=== PATIENT | female | born 1950 | race Caucasian/White ===

== ENCOUNTER 2019-03-14 12:03 | Day surgery (SDC) | payer MEDICARE ==
[~2019-03-14] VITALS: Ht 172.7 cm; Wt 77.1 kg
[~2019-03-14 12:03] MED LIST: ALPR1TAB6 PO; BACITRACIN 50,000 UNIT in IV NORMAL SALINE 500ML BAG 500 ML IRR ONE; BUPIVACAINE-EPI 0.5%-1:200000 MPF 30 ML VIAL. INJ ONE; CHLORHEXIDINE 0.12% 15 ML MOUTHWASH. SWSP PRN; CHOL10003 PO; ESCI10TA2 PO; HYDROmorphone 2 MG/ML VIAL IV PRN; IV RINGERS,LACTATED 1000ML 1,000 ML IV SCH; LIDOCAINE 1% PF 2 ML VIAL. ID PRN; MORPHINE SULFATE 2 MG/ML VIAL. IV PRN; MULT1TAB52 PO; OLME20TA21 PO; PROCHLORPERAZINE 10 MG/2 ML VIAL. IV PRN; ROSU20TA28 PO; TRAZ-86 PO; fentaNYL PF VIAL 100 MCG/2 ML VIAL IV PRN
[2019-03-14] MEDS ORDERED: fentaNYL PF VIAL 100 MCG/2 ML VIAL ONE (13:10)
[2019-03-14] MEDS ORDERED: LIDOCAINE 2% PF 5 ML VIAL. ONE (13:10)
[2019-03-14] MEDS ORDERED: DEXAMETHASONE SOD PHOS 4 MG/ML VIAL ONE ×2 (13:10→15:46)
[2019-03-14] MEDS ORDERED: SUCCINYLCHOLINE 200 MG/10 ML VIAL. ONE (13:10)
[2019-03-14] MEDS ORDERED: PROPOFOL 20 ML IV ONE (13:10)
[2019-03-14] MEDS ORDERED: FAMOTIDINE 20 MG/2 ML VIAL ONE (13:10)
[2019-03-14] MEDS ORDERED: ONDANSETRON PF 4 MG/2 ML VIAL. ONE (13:10)
[2019-03-14] MEDS ORDERED: MIDAZOLAM HCL/PF 5 MG/5 ML VIAL. ONE (13:56)
[2019-03-14] MEDS ORDERED: GELATIN SPONGE SIZE 4 SPONGE. TP ONE (14:27)
[2019-03-14] MEDS ORDERED: ROCURONIUM 50 MG/5 ML VIAL. ONE (14:28)
[2019-03-14] MEDS ORDERED: GELATIN SPONGE SIZE 4 SPONGE. ONE ×2 (14:50)
[2019-03-14] MEDS ORDERED: GELATIN SPONGE SIZE 12-7MM SPONGE. ONE (14:51)
[2019-03-14] MEDS ORDERED: DESFLURANE > 120 MINUTES IH ONE (15:54)
[2019-03-14] MEDS ORDERED: DEXAMETHASONE SOD PHOS 4 MG/ML VIAL SQ ONE (15:55)
[2019-03-14] MEDS: fentaNYL PF VIAL 100 MCG/2 ML VIAL IV PRN ×5 (16:16→16:50)
--- NOTE | 2019-03-14 16:30 | PDOC4 ---
OPERATIVE NOTE Date: Date: Mar 14, 2019 Pre-Op Diagnosis: [facility] OPERATIVE NOTE. Patient Name: Mayda Gustafson Unit Number: [id number] Date of : 11/19/1963 Patient Status: Admitted Inpatient Attending Doctor: Truong Leblanc MD OPERATIVE NOTE. OPERATIVE NOTE Date: Date: Mar 14, 2019 Pre-Op Diagnosis: COPD Severe HTN caries 22,23,24,25,26,27 Bilateral mandibular fawad Post-Op Diagnosis: SAME Procedure Performed: Procedure Performed: extraction of all remaining teeth 22,23,24,25,26,27 removal of Bilateral mandibular fawad Surgeon: radha Anesthesia Type: m Blood Loss: 20 Specimans Obtained: teeth disposed of in OR Findings: see dictation Complications: none Operative Note: see dictation DALLIN RASHEED DMD Mar 14, 2019 16:30
[2019-03-14 17:19] VITALS: BP 150/82
--- NOTE | 2019-03-14 22:15 | OP ---
DATE OF SURGERY: 03/14/2019 OPERATING SERVICE: water resources business segment leader. ATTENDING PHYSICIAN: Dallin Rasheed DMD PREOPERATIVE DIAGNOSES: Chronic obstructive pulmonary disease, severe; hypertension; caries, nonrestorable teeth numbers 22, 23, 24, 25, 26, 27; and bilateral mandibular fawad, lower right and lower left. POSTOPERATIVE DIAGNOSES: Chronic obstructive pulmonary disease, severe; hypertension; caries, nonrestorable teeth numbers 22, 23, 24, 25, 26, 27; and bilateral mandibular fawad, lower right and lower left. PROCEDURES PERFORMED: Extraction of aforementioned teeth numbers 22, 23, 24, 25, 26, 27 and removal of bilateral mandibular fawad, lower right and lower left. BRIEF HISTORY: The patient was referred to my clinic by Dr. Washington from the [facility] for removal of the aforementioned teeth in preprosthetic surgery. On evaluation, her oxygenation saturation was very low without supplemental oxygen and she was resting in the room. Due to the nature of the surgery that was required, sedation would be required in her severely medically compromised state. We elected to escalate those setting of her care to the OR. Brief history and physical was performed in our clinic and permit was obtained for surgery. ESTIMATED BLOOD LOSS: Approximately 20 mL. DRAINS PLACED: None. SPECIMEN SENT: None. COMPLICATIONS: None noted at the time of surgery. OPERATIVE DESCRIPTION: After the history and physical was updated in the preoperative holding area, the patient was transported by the Anesthesia Service to the operating suite, placed in the supine position. General anesthesia was induced. She was secured to the left face. A timeout was initiated. All perioperative staff was in agreement. A moistened throat pack was placed. A local anesthesia in the form of 20 mL of 0.5% 1:200,000 epinephrine was administered to the proposed surgical areas. Additional 10 mL were administered at the culmination of the procedure approximately an hour and a half later. The moistened bite block was placed. A sweetheart tongue retractor was utilized to retract the tongue. A #15 blade was utilized to create a full thickness mid crestal ridge incision on the lower right and lower left with distal hockey stick. Periosteal elevators, Fieldon elevators, and Seldin elevators were employed to reflect buccal and lingual full thickness mucoperiosteal flaps. The fawad were exposed. The soft tissue was retracted with sweetheart and Seldin retractors and rotary instrumentation was utilized to debride, smooth, and remove the bony prominences of the fawad under copious normal sterile saline irrigation. The sites of lower right and lower left were lavaged and suctioned and evaluated and found to be smooth and without significant undercut. Teeth numbers 22, 23, 24, 25, 26, and 27 were luxated, elevated, and extracted without complication. Alveoloplasty in the lower right and lower left quadrants was employed with rongeurs. The bony undercuts were removed and the areas were smoothed with bone file curettage and copious normal sterile saline. Each site was packed with Gelfoam and the wounds were closed with a running locked 3-0 chromic gut sutures without complication. A small 8 x 8 mm laceration was noted on the lower right floor of mouth. This was closed with three 3-0 chromic gut sutures. The oral cavity was lavaged and suctioned. The moistened throat pack was removed. An OG was passed and the stomach was decompressed. The patient was then returned to the care of Anesthesia, where she was awakened and extubated without complication and transported to the PACU in stable condition. DALLIN RASHEED DMD DR: Adrianna JOB#: [id number] / [id number] JASON
== END 2019-03-14 19:12 | disposition home or self-care (01) ==
LOC: SURG 12:03
PROVIDERS: ATTEND Dentist Oral and Maxillofacial Surgery
DX: K02.9 Dental caries, unspecified (principal); J44.9 Chronic obstructive pulmonary disease, unspecified; I10 Essential (primary) hypertension; G47.33 Obstructive sleep apnea (adult) (pediatric); F41.9 Anxiety disorder, unspecified; F32.9 Major depressive disorder, single episode, unspecified; F17.210 Nicotine dependence, cigarettes, uncomplicated; Z96.649 Presence of unspecified artificial hip joint; Z96.659 Presence of unspecified artificial knee joint; Z96.619 Presence of unspecified artificial shoulder joint
CPT/HCPCS: 41874; A7015; J0330; J0690; J0780; J1100; J2001; J2250; J2405; J2704; J3010; J3490; J7040; J7120

== ENCOUNTER 2019-09-02 11:57 | Inpatient (IN) | payer MEDICARE ==
[~2019-09-02] VITALS: Ht 172.7 cm; Wt 80.1 kg
[2019-09-02] VITALS (11 sets, daily range): BP systolic 115–140; BP diastolic 71–91
[~2019-09-02 11:57] MED LIST changes: -BACITRACIN 50,000 UNIT in IV NORMAL SALINE 500ML BAG 500 ML IRR ONE; -BUPIVACAINE-EPI 0.5%-1:200000 MPF 30 ML VIAL. INJ ONE; -CHLORHEXIDINE 0.12% 15 ML MOUTHWASH. SWSP PRN; -HYDROmorphone 2 MG/ML VIAL IV PRN; -IV RINGERS,LACTATED 1000ML 1,000 ML IV SCH; -LIDOCAINE 1% PF 2 ML VIAL. ID PRN; -MORPHINE SULFATE 2 MG/ML VIAL. IV PRN; -PROCHLORPERAZINE 10 MG/2 ML VIAL. IV PRN; +TRAZ-123 PO; -TRAZ-86 PO; -fentaNYL PF VIAL 100 MCG/2 ML VIAL IV PRN
[2019-09-02] MEDS ORDERED: ACETAMINOPHEN 325 MG TABLET. PO PRN (12:15)
[2019-09-02] MEDS ORDERED: BUPR300T3 PO (12:30)
[2019-09-02] MEDS ORDERED: CYCL15CA20 PO (12:30)
[2019-09-02] MEDS ORDERED: CYCLOBENZAPRINE 10 MG TABLET. PO PRN (12:45)
[2019-09-02] MEDS: methylPREDNISolone SOD SUCC PF 40 MG/ML VIAL. IV SCH ×2 (12:47→21:19)
[2019-09-02] MEDS: CITALOPRAM 20 MG TABLET. PO SCH (12:48)
[2019-09-02] MEDS: buPROPion XL 150 MG TAB.ER.24H. PO SCH (12:48)
[2019-09-02] MEDS: ALPRAZolam 1 MG TABLET PO PRN (12:48)
[2019-09-02] MEDS ORDERED: cefTRIAXone IV Push 1 GM VIAL. IVP SCH (13:00)
--- NOTE | 2019-09-02 13:24 | NUR ---
called consults to dr bae and dr ibanez at this time
--- NOTE | 2019-09-02 13:57 | NUR ---
called consult to dr naidu at this time
--- NOTE | 2019-09-02 13:59 | PDOC2 ---
VIPUL GOLDBERG SBA UNDERWRITER 09/02/19 1359: CARDIAC CONSULT DATE OF CONSULT Date of Consult DATE: 09/02/19 TIME: 13:44 REASON FOR CONSULT Reason for Consult: PE REFERRING PHYSICIAN Referring Physician: Kang SOURCE Source: Chart review, Patient HISTORY OF PRESENT ILLNESS HISTORY OF PRESENT ILLNESS This is a 69 yo female admitted for complains of intractable cough and right sided chest pain She came in at [place] initially as a direct admit and transferred to [facility] for further treatment and evaluation. Noted initially with AECOPD but later noted with large right PE as well as possible right renal CA. Reports that she has been SOA and wheezing with sometimes intractable coughing without hemoptysis in the last 4 days. Positive for orthopnea but no peripheral edema. She uses O2 2L at hs only but has not used it consistently throughout the day in the last 4 days. No recent long distance travel and no hx of clotting problems in the past. No recent infection. No recent surgeries, falls. No palpitations or dizziness. She has been weak for a while but no changes in her appetite and no significant wt loss or gain. No hx of VTE. No prior hx of CAD or arrhythmias. PAST MEDICAL HISTORY Cardiovascular: HTN, Hyperlipidemia Pulmonary: COPD CENTRAL NERVOUS SYSTEM: Other (No pertinent history) GI: No pertinent hx Heme/Onc: No pertinent hx Hepatobiliary: No pertinent hx Psych: Anxiety Musculoskeletal: Osteoarthritis Rheumatologic: No pertinent hx Infectious disease: No pertinent hx ENT: No pertinent hx Renal/: No pertinent hx Endocrine: No pertinent hx Dermatology: No pertinent hx PAST SURGICAL HISTORY Past Surgical History: Arthroscopy (LRTC repair), Total hip replacement (right), Tonsillectomy, Hysterectomy, Other (left wrist fracture repair) FAMILY HISTORY Family History: Coronary Artery Disease (dayghter in her 40s), Other (lymphoma- mother) SOCIAL HISTORY Smoke: <1 pack per day ALCOHOL: none Drugs: None Lives: with Family CURRENT MEDICATIONS CURRENT MEDICATIONS Current Medications Medications (Trade) Dose Ordered Sig/Chanel Route PRN Reason Start Time Stop Time Status Last Admin Dose Admin Methylprednisolone Sodium Succinate (SOLU-Medrol 40MG VIAL) 40 mg Q8HRS IV 09/02/19 13:00 09/02/19 12:47 Alprazolam (Xanax) 1 mg PRN BID PRN PO ANXIETY / AGITATION 09/02/19 12:30 09/02/19 12:48 Bupropion HCl (Wellbutrin Xl) 300 mg DAILY PO 09/02/19 14:00 09/02/19 12:48 Citalopram Hydrobromide (CeleXA) 20 mg DAILY PO 09/02/19 14:00 09/02/19 12:48 ALLERGIES ALLERGIES: Coded Allergies: No Known Drug Allergies (Unverified , 03/14/19) ROS Review of System 14 point ROS evaluated with pertinent positives noted per HPI PHYSICAL EXAM General: Alert, Oriented X3, Cooperative, No acute distress HEENT: Atraumatic, Mucous membr. moist/pink Lungs: Other (diminished with faint basilar crackles) Heart: Regular rate (SR/ST), Other (S4, 2/6 systolic murmur to LLS border) Abdomen: Soft, No tenderness Extremities: No cyanosis, No edema Skin: No breakdown, No significant lesion Neuro: Normal speech, Sensation intact Psych/Mental Status: Mental status NL, Mood NL MUSCULOSKELETAL: Osteoarthritic changes both hands ASSESSMENT/PLAN ASSESSMENT/PLAN 1. Acute PE: right side 2. Acute diastolic CHF: due to above. no SOA at rest 3. HTN: labile episodes 4. HLP: on home statin 5. Possible right renal CA/malignancy 6. AECOPD with continued tobaccoism Recommendations 1. Restart heparin drip. Defer anticoagulation to pulmonary 2. TTE, TSH, EKG, venous doppler 3. Norvasc daily, hydralazine IV PRN BRUCE TINOCO MD 09/02/19 1717: CARDIAC CONSULT ASSESSMENT/PLAN ASSESSMENT/PLAN Patient seen and examined Acute pulmonary embolism. Patient has been started on a heparin drip. Is being followed by pulmonary. Is reasonably comfortable at rest. We'll check an echocardiogram to evaluate right-sided pressures. Acute diastolic heart failure. Secondary the patient's PE. Continue present treatment. Possible right renal malignancy. Workup as per the primary service. Hypertension. On Norvasc. Continuing to monitor. Hyperlipidemia. Continue statin. Acute exacerbation of COPD. Pulmonary treatments. Discontinue smoking. Thank you for allowing us to participate in the care of your patient. VIPUL GOLDBERG APRN Sep 02, 2019 13:59 BRUCE TINOCO MD Sep 02, 2019 17:47
[2019-09-02] MEDS ORDERED: hydrALAZINE 20 MG/ML VIAL. IVP PRN (14:00)
[2019-09-02] MEDS ORDERED: HEPARIN for IV BOLUS 10,000 UNIT/10 ML VIAL. IV PRN ×2 (14:30)
[2019-09-02 14:38] LABS: BASO # 0.1 x10^3/uL (0.0-0.2); BASO % 1 % (0-3); EOS % 0 % (0-3); HEMATOCRIT 46.2 % (36.0-47.0); HEMOGLOBIN 15.4 g/dL (12.0-15.5); LYMPH # 0.8 x10^3/uL (1.0-4.8); LYMPH % 7 % (24-48); MEAN CORPUSCULAR HEMOGLOBIN 30 pg (25-35); MEAN CORPUSCULAR HGB CONC 33 g/dL (31-37); MEAN CORPUSCULAR VOLUME 90 fL (79-100); MONO # 0.1 x10^3/uL (0.0-1.1); MONO % 1 % (0-9); NEUT # 11.4 x10^3/uL (1.8-7.7); NEUT % 92 % (31-73); PLATELET COUNT 292 x10^3/uL (140-400); RED BLOOD COUNT 5.13 x10^6/uL (3.50-5.40); RED CELL DISTRIBUTION WIDTH 15.8 % (11.5-14.5); WHITE BLOOD COUNT 12.3 x10^3/uL (4.0-11.0)
[2019-09-02 14:45] LABS: CALCIUM 9.1 mg/dL (8.5-10.1); POTASSIUM 4.3 mmol/L (3.5-5.1)
[2019-09-02] MEDS ORDERED: ANTI-COAG MONITOR BY PHARMACY. MC PRN (14:45)
[2019-09-02 14:51] LABS: ALBUMIN 3.4 g/dL (3.4-5.0); ALBUMIN/GLOBULIN RATIO 0.9 (1.0-1.7); PROTHROMBIN TIME PATIENT 13.9 SEC (11.7-14.0); TOTAL BILIRUBIN 0.3 mg/dL (0.2-1.0); TOTAL PROTEIN 7.1 g/dL (6.4-8.2)
[2019-09-02 14:53] LABS: UNFRACTIONATED HEPARIN TESTING 0.49 IU/mL (0.30-0.70)
--- NOTE | 2019-09-02 14:57 | CONS ---
DATE OF CONSULTATION: PULMONARY CONSULTATION ATTENDING PHYSICIAN: Vanessa Kapadia MD REASON FOR CONSULTATION: Acute pulmonary embolism. HISTORY OF PRESENT ILLNESS: The patient is a 69-year-old female who has at least 35-40 years of tobacco use. She wears oxygen at night. She was admitted to [facility] with chest pain and some shortness of breath. She felt like dizzy as well. She has a mild cough. No high-grade fever. She was seen in the Emergency Room where she had a CT angiogram, which was strongly positive for pulmonary embolism. I have reviewed the CT chest. She had evidence of pulmonary embolism involving the right main pulmonary artery as well as extending into the lobar and segmental vessels on the right middle and right lower lobes. There was also left pulmonary emboli burden seen in the left lower lobe pulmonary artery. There was a faint parenchymal scarring in the right upper lobe area. The patient also had a lesion in the right kidney with a mass 4.4 cm in size. I have been asked to see her for further evaluation. She is currently hemodynamically stable in our ICU. PAST MEDICAL HISTORY: History of bronchitis, history of suspected severe COPD, history of anemia, hyperlipidemia, CAD, fatigue, depression, hypertension. PAST SURGICAL HISTORY: Left foot surgery reconstruction, total hip replacement, partial hysterectomy, laminectomy, diskectomy. SOCIAL HISTORY: Smoked for about 35-40 years. REVIEW OF SYSTEMS: Twelve-point system obtained. Pertinent positives discussed in my history of present illness, otherwise noncontributory. All systems that were negative were reviewed as well. FAMILY HISTORY: Noncontributory to lungs. PHYSICAL EXAMINATION: VITAL SIGNS: Reviewed. Blood pressure is stable. Pulse ox is 97% on 3 liters. HEENT: Sclerae nonicteric. NECK: Supple. LUNGS: With diminished breath sounds. CARDIOVASCULAR: Regular rate and rhythm. ABDOMEN: Soft. EXTREMITIES: With no pitting edema. LABORATORY DATA: Reviewed. Sodium 141, potassium 4.5, chloride 106, bicarbonate 27. BUN 12, creatinine 1.0. Lactic acid 1.2. AST, ALT normal. IMPRESSION: 1. Acute hypoxic respiratory failure secondary to acute pulmonary embolism. 2. Abnormal CT chest with large pulmonary emboli seen in the right main pulmonary artery, and also followed in the right middle and right lower lobe pulmonary artery as well as left lower lobe pulmonary arteries. There is evidence of some right heart strain. 3. Faint right upper lobe parenchymal scar versus nodule, which needs to be followed up. 4. Abnormal mass seen in the right kidney, which could be concerning for malignancy. 5. Underlying suspected severe chronic obstructive pulmonary disease. RECOMMENDATIONS: 1. Discussed with the patient and the entire family. We will continue with present oxygen. 2. We will continue with full therapeutic anticoagulation to treat her acute pulmonary embolism. Hemodynamically stable. Does not need TPA. 3. She would need venous Dopplers of lower extremities. 4. She would need further workup of renal mass. If malignancy is confirmed, her pulmonary embolism would be related to hypercoagulable state. She will need lifelong anticoagulation. 5. Smoking cessation counseling provided. 6. Add bronchodilators. 7. IV steroids initiated. We will follow. 8. We will discuss with RN and entire family. Critical care time 37 minutes. Discussed with RN. CORINE VERNON MD DR: ENDY/emilie JOB#: [id number] / [id number] JASON
--- NOTE | 2019-09-02 15:01 | EKG ---
[facility] [address] [place] [address] Test Date: 2019-09-02 Test Time: 14:54:11 Pat Name: LEYDA SETH Department: Room: 108 1 Gender: F Barge Engineer: : 1950 Requested By: VIPUL GOLDBERG Order Number: [id number] Reading MD: Measurements Intervals [place] Rate: 97 P: 36 [place]: 138 QRS: 62 QRSD: 88 T: -74 QT: 346 QTc: 444 Interpretive Statements SINUS RHYTHM R-S TRANSITION ZONE IN V LEADS DISPLACED TO THE LEFT ST & T ABNORMALITY, CONSIDER INFERIOR ISCHEMIA OR LEFT VENTRICULAR STRAIN ABNORMAL ECG RI6.02 No previous ECG available for comparison
[2019-09-02] MEDS: HEPARIN 25,000UTS/250ML PREMIX 250 ML IV PRN (15:32)
[2019-09-02 15:40] LABS: % ATYL 2 % (0-0); % BANDS 6 % (0-9); % LYMPHS 3 % (24-48); % MONOS 2 % (0-10); % SEGS 87 % (35-66)
[2019-09-02 15:43] LABS: OVALOCYTES FEW; PLT ESTIMATE ADEQUATE (ADEQUATE)
[2019-09-02 15:44] LABS: SCHISTOCYTES OCC
--- NOTE | 2019-09-02 15:44 | RAD ---
EXAM: Bilateral lower extremity venous Doppler sonogram. HISTORY: Pulmonary embolism.. TECHNIQUE: Kelly scale and color Doppler sonographic evaluation of the bilateral lower extremity veins with spectral waveform analysis was performed. FINDINGS: There is normal color flow, normal compressibility and there are normal spectral waveforms in the common femoral, superficial femoral, popliteal, posterior tibial and greater saphenous veins. IMPRESSION: No Doppler evidence of lower extremity deep venous thrombosis. Electronically signed by: Norma Harding MD (09/02/2019 3:41 PM) [id number]
[2019-09-02] MEDS: IPRATRPIUM/ALBUTEROL 0.5/2.5MG 3 ML NEBU. NEB SCH ×3 (16:00→20:08)
--- NOTE | 2019-09-02 16:14 | NUR ---
notified dr ching of pt positive sepsis screen. no new orders at this time
[2019-09-02] MEDS: cefTRIAXone IV Push 1 GM VIAL. IVP SCH (17:33)
--- NOTE | 2019-09-02 18:24 | CARD ---
MR#: [id number] Date of Study: 09/02/2019 Ordering Physician: VIPUL GOLDBERG, Referring Physician: VIPUL GOLDBERG, Tech: Yadi Davis APPROVED REPORT EXAM: Two-dimensional and M-mode echocardiogram with Doppler and color Doppler. Other Information Quality : GoodHR: 105bpm Rhythm : NSR INDICATION Congestive Heart Failure RISK FACTORS Hypertension Hyperlipidemia Smoking COPD 2D DIMENSIONS Left Atrium(2D)4.0 (1.6-4.0cm)IVSd1.5 (0.7-1.1cm) LVDd3.0 (3.9-5.9cm)LVOT Diameter1.7 (1.8-2.4cm) PWd1.0 (0.7-1.1cm)LVDs1.8 (2.5-4.0cm) FS (%) 40.4 %SV26.3 ml Aortic Valve AoV Peak Henrry.189.2cm/Luis Miguel Peak GR.14.3mmHg Mitral Valve MV E Emzyklue38.1cm/sMV DECEL PFUN757zv MV A Fpetuabb61.0cm/sE/A Ratio0.8 MV A Hjjdcnuc21wt Pulmonary Valve PV Peak Gcfxqdkf88.4cm/s Tricuspid Valve TR P. Bdqwvmvj477sk/sTR Peak Gr.32mmHg Pulmonary Vein S1 Aylkyxav31.6cm/sD2 Kkmxtbby73.5cm/s PVa ikeflsur41dctj LEFT VENTRICLE The left ventricle is normal size. There is mild concentric left ventricular hypertrophy. Left ventri claudette systolic function is normal. The Ejection Fraction is 55-60%. The left ventricular diastolic func tion and filling is normal for age. RIGHT VENTRICLE The right ventricle is moderately dilated. Systolic function is borderline reduced. ATRIA The left atrium size is normal. The right atrium is moderately dilated. AORTIC VALVE The aortic valve is normal in structure and function. Doppler and Color Flow revealed no significant aortic regurgitation. There is no significant aortic valvular stenosis. MITRAL VALVE The mitral valve is normal in structure and function. There is no mitral valve stenosis. Doppler and Color Flow revealed trace mitral valve regurgitation. TRICUSPID VALVE The tricuspid valve is normal in structure and function. Doppler and Color Flow revealed mild tricusp id regurgitation. The pulmonary artery systolic pressure is estimated at 44-50 mmHg. PULMONIC VALVE Doppler and Color Flow revealed no pulmonic valvular regurgitation. GREAT VESSELS The aortic root is normal in size. The ascending aorta is normal in size. The IVC is dilated and quan apses >50% with inspiration. PERICARDIAL EFFUSION There is no evidence of significant pericardial effusion. Critical Notification Critical Value: No <Conclusion> The left ventricle is normal size. Left ventricle systolic function is normal. The Ejection Fraction is 55-60%. There is mild concentric left ventricular hypertrophy. The right ventricle is moderately dilated. RV systolic function is borderline reduced. The right atrium is moderately dilated. Doppler and Color Flow revealed no significant aortic regurgitation. There is no significant aortic valvular stenosis. Doppler and Color Flow revealed trace mitral valve regurgitation. Doppler and Color Flow revealed mild tricuspid regurgitation. The pulmonary artery systolic pressure is estimated at 44-50 mmHg. Signed by : Niraj Winters MD Electronically Approved : 09/02/2019 18:23:50
[2019-09-02] MEDS ORDERED: FLU VAX QS 2019-20 (36MOS+)/PF 0.5 ML SYRINGE. VAX IM ONE (19:00)
[2019-09-02] MEDS: traZODone 100 MG TABLET. PO SCH (21:18)
[2019-09-02] MEDS: ATORVASTATIN CALCIUM 40 MG TABLET. PO SCH (21:18)
[2019-09-03] VITALS: BP 119/64
--- NOTE | 2019-09-03 06:00 | NUR ---
Pt has had a very quiet night. VSS. Has been on 4LNC with sats in low to mid 90's. Grandson in room and he reminds patient to call for help before getting up. Heparin drip on hold now due to UFH of 1.11. Talked with Dr. Johnson. To continue with the Heparin protocol as ordered.
[2019-09-03] MEDS: IPRATRPIUM/ALBUTEROL 0.5/2.5MG 3 ML NEBU. NEB SCH ×4 (07:50→20:53)
[2019-09-03] MEDS: amLODIPine BESYLATE 5 MG TABLET PO SCH (09:00)
[2019-09-03] MEDS: buPROPion XL 150 MG TAB.ER.24H. PO SCH (09:00)
[2019-09-03] MEDS: CITALOPRAM 20 MG TABLET. PO SCH (09:00)
--- NOTE | 2019-09-03 10:42 | HP ---
ADMIT DATE: 09/03/2019 HISTORY OF PRESENT ILLNESS: The patient is a 69-year-old female patient, who was admitted directly from her primary care physician's office to [facility] as she has been complaining of recurrent bouts of cough with whitish sputum. She also has right-sided chest pain, did complain of orthopnea and also what seemed to be paroxysmal nocturnal dyspnea. However, she denied any chills, rigors or fever. She has had a chest x-ray, which showed that she has mild hyperinflation, interstitial coarsening that is stable; there is no focal consolidation or infiltrate identified; the cardiomediastinal silhouette is stable; there is no evidence of pneumothorax or pleural effusion; and no acute osseous abnormality. The patient was admitted with diagnosis of COPD exacerbation. We did subsequently a lab work, which showed that her D-dimer was extremely high; and therefore, she has had a CT angio of the chest, which showed that the patient has prominent pulmonary embolism within the right main pulmonary artery and extending into the lobar segmental vessels to the right middle lobe and right lower lobe and less pronounced pulmonary embolic burden to the left seen within the lobar arteries in the left lower lobe; the interventricular septum was significantly deviated with asymmetric prominence of the right heart chambers; has scattered calcified and noncalcified atheromatous plaques; no aortic aneurysm or dissection; she has small amount of pericardial fluid; no suspicious mediastinal or hilar lymph nodes based on the size; she has emphysematous changes of the lungs with multifocal pleural parenchymal scarring; ill-defined region speculation of the right upper lobe; the spiculated area has a central nodular focus measuring 4 mm; a small nodular focus within the right upper lobe, measures about 3 mm; no axillary lymphadenopathy; a low-attenuation focus within the left hepatic lobe that was present on the prior exam as well as partially imaged subcentimeter low-attenuation focus; there is abnormal bulging of the posterior renal cortex on the right with heterogenous attenuation and dislocation concerning for renal cell carcinoma. The patient was started on heparin drip. We did start her also on IV antibiotics and bronchodilators as well as steroids, and the patient was subsequently transferred to [facility] to consult the marine animal trainer as well as the rug receiving clerk. PAST MEDICAL HISTORY: Significant for hypertension, hyperlipidemia, chronic obstructive pulmonary disease, she also has chronic hypoxic respiratory failure, she is on 2 liters of oxygen by nasal cannula. PAST SURGICAL HISTORY: Significant for right total hip arthroplasty; total abdominal hysterectomy and bilateral salpingo-oophorectomy; left wrist fracture, status post open reduction and internal fixation; tonsillectomy; and left rotator cuff repair. ALLERGIES: She has no known drug allergies. MEDICATIONS: She was on the following medications at home. She is on multivitamin 1 tablet once a day, Flexeril 10 mg every 6 hours as needed, olmesartan 20 mg once a day, trazodone 100 mg at bedtime, alprazolam 1 mg twice a day as needed, she is on Wellbutrin 300 mg once a day, Crestor 20 mg at bedtime, she is on Lexapro 10 mg daily. FAMILY HISTORY: She has 2 sisters, younger and healthy. Father in his late 80s because of old age. Mother at the age of 76 because of non-Hodgkin lymphoma. SOCIAL HISTORY: She lives with her partner and her grandson. She has been a smoker for more than 45 years. She used to smoke a pack a day. She is now smoking 10 cigarettes a day. She does not drink alcohol or use marijuana. She worked for [employer] and currently retired. REVIEW OF SYSTEMS: As per history of present illness. PHYSICAL EXAMINATION: GENERAL: When I saw her today, she looked well and was clearly in no apparent respiratory distress and extremely anxious. There is no pallor, jaundice, cyanosis or thyromegaly. No jugular venous distention. No lower limb edema. VITAL SIGNS: Her heart rate was 100, blood pressure was 150/70, temperature was 98, respiratory rate was 22 and oxygen saturation was 93% on 4 liters of oxygen. HEAD, EYES, EARS, NOSE AND THROAT: Normocephalic, atraumatic. NECK: Supple. HEART: Showed normal first and second heart sounds. No gallop or murmur. CHEST: Shows central trachea, equally reduced expansion, reduced air entry, vesicular sounds with bilateral scattered rhonchi, I could not appreciate any crepitation. ABDOMEN: Slightly distended, soft, nontender. NEUROLOGICAL: She is awake, alert, very anxious, but no obvious lateralizing sign. All her cranial nerves are intact. EXTREMITIES: She moves extremities without difficulty. ASSESSMENT AND PLAN: The patient was continued on her IV Solu-Medrol, nebulized treatment, IV ceftriaxone and Zithromax as well as heparin drip. We did consult the marine animal trainer and rug receiving clerk to assist with her management. I explained to her that basically we have to take care of her pulmonary embolus first; then, once she stabilized, we will arrange for her to be seen by a urologist. TANNA PERALTA MD DR: ROSA M/emilie JOB#: [id number] / [id number]
[2019-09-03 12:00] VITALS: BP 121/85
--- NOTE | 2019-09-03 12:11 | PDOC ---
PULMONARY PROGRESS NOTES Subjective n 02, 4 lpm, sob better, has cough, has occ cp, feeling better, on qhs o2 2 lpm at home Vitals Vital Signs Date Time Temp Pulse Resp B/P (MAP) Pulse Ox O2 Delivery O2 Flow Rate FiO2 09/03/19 00:00 98.5 86 24 119/64 (82) 95 Nasal Cannula 4.0 98.5 Comments ros as mentioned as above other sys otherwise neg ROS: No Nausea General: Alert, Oriented X4 HEENT: Other (nc at perrl nose throat clear neck no lad no thyromegaly) Lungs: Crackles Cardiovascular: S1, S2 Abdomen: Soft, Non-tender, Other (no mass) Neuro Exam: Alert Extremities: No Edema Skin: Warm Labs Laboratory Tests Test 09/02/19 14:10 09/02/19 20:10 White Blood Count 12.3 x10^3/uL (4.0-11.0) Red Blood Count 5.13 x10^6/uL (3.50-5.40) Hemoglobin 15.4 g/dL (12.0-15.5) Hematocrit 46.2 % (36.0-47.0) Mean Corpuscular Volume 90 fL (79-100) Mean Corpuscular Hemoglobin 30 pg (25-35) Mean Corpuscular Hemoglobin Concent 33 g/dL (31-37) Red Cell Distribution Width 15.8 % (11.5-14.5) Platelet Count 292 x10^3/uL (140-400) Neutrophils (%) (Auto) 92 % (31-73) Lymphocytes (%) (Auto) 7 % (24-48) Monocytes (%) (Auto) 1 % (0-9) Eosinophils (%) (Auto) 0 % (0-3) Basophils (%) (Auto) 1 % (0-3) Neutrophils # (Auto) 11.4 x10^3/uL (1.8-7.7) Lymphocytes # (Auto) 0.8 x10^3/uL (1.0-4.8) Monocytes # (Auto) 0.1 x10^3/uL (0.0-1.1) Eosinophils # (Auto) 0.0 x10^3/uL (0.0-0.7) Basophils # (Auto) 0.1 x10^3/uL (0.0-0.2) Segmented Neutrophils % 87 % (35-66) Band Neutrophils % 6 % (0-9) Lymphocytes % 3 % (24-48) Atypical Lymphocytes % (Manual) 2 % (0-0) Monocytes % 2 % (0-10) Platelet Estimate Adequate (ADEQUATE) Ovalocytes Few Schistocytes Occ Prothrombin Time 13.9 SEC (11.7-14.0) Prothromb Time International Ratio 1.1 (0.8-1.1) Activated Partial Thromboplast Time 53 SEC (24-38) Heparin Anti-Xa Act, Unfractionated 0.49 IU/mL (0.30-0.70) 1.03 IU/mL (0.30-0.70) Sodium Level 138 mmol/L (136-145) Potassium Level 4.3 mmol/L (3.5-5.1) Chloride Level 100 mmol/L (98-107) Carbon Dioxide Level 28 mmol/L (21-32) Anion Gap 10 (6-14) Blood Urea Nitrogen 12 mg/dL (7-20) Creatinine 1.0 mg/dL (0.6-1.0) Estimated GFR (Cockcroft-Gault) 55.0 BUN/Creatinine Ratio 12 (6-20) Glucose Level 167 mg/dL (70-99) Calcium Level 9.1 mg/dL (8.5-10.1) Total Bilirubin 0.3 mg/dL (0.2-1.0) Aspartate Amino Transf (AST/SGOT) 28 U/L (15-37) Alanine Aminotransferase (ALT/SGPT) 17 U/L (14-59) Alkaline Phosphatase 115 U/L (46-116) Troponin I Quantitative 0.190 ng/mL (0.000-0.055) Total Protein 7.1 g/dL (6.4-8.2) Albumin 3.4 g/dL (3.4-5.0) Albumin/Globulin Ratio 0.9 (1.0-1.7) Thyroid Stimulating Hormone (TSH) 0.150 uIU/mL (0.358-3.74) Laboratory Tests Test 09/02/19 14:10 09/02/19 20:10 White Blood Count 12.3 x10^3/uL (4.0-11.0) Red Blood Count 5.13 x10^6/uL (3.50-5.40) Hemoglobin 15.4 g/dL (12.0-15.5) Hematocrit 46.2 % (36.0-47.0) Mean Corpuscular Volume 90 fL (79-100) Mean Corpuscular Hemoglobin 30 pg (25-35) Mean Corpuscular Hemoglobin Concent 33 g/dL (31-37) Red Cell Distribution Width 15.8 % (11.5-14.5) Platelet Count 292 x10^3/uL (140-400) Neutrophils (%) (Auto) 92 % (31-73) Lymphocytes (%) (Auto) 7 % (24-48) Monocytes (%) (Auto) 1 % (0-9) Eosinophils (%) (Auto) 0 % (0-3) Basophils (%) (Auto) 1 % (0-3) Neutrophils # (Auto) 11.4 x10^3/uL (1.8-7.7) Lymphocytes # (Auto) 0.8 x10^3/uL (1.0-4.8) Monocytes # (Auto) 0.1 x10^3/uL (0.0-1.1) Eosinophils # (Auto) 0.0 x10^3/uL (0.0-0.7) Basophils # (Auto) 0.1 x10^3/uL (0.0-0.2) Segmented Neutrophils % 87 % (35-66) Band Neutrophils % 6 % (0-9) Lymphocytes % 3 % (24-48) Atypical Lymphocytes % (Manual) 2 % (0-0) Monocytes % 2 % (0-10) Platelet Estimate Adequate (ADEQUATE) Ovalocytes Few Schistocytes Occ Prothrombin Time 13.9 SEC (11.7-14.0) Prothromb Time International Ratio 1.1 (0.8-1.1) Activated Partial Thromboplast Time 53 SEC (24-38) Heparin Anti-Xa Act, Unfractionated 0.49 IU/mL (0.30-0.70) 1.03 IU/mL (0.30-0.70) Sodium Level 138 mmol/L (136-145) Potassium Level 4.3 mmol/L (3.5-5.1) Chloride Level 100 mmol/L (98-107) Carbon Dioxide Level 28 mmol/L (21-32) Anion Gap 10 (6-14) Blood Urea Nitrogen 12 mg/dL (7-20) Creatinine 1.0 mg/dL (0.6-1.0) Estimated GFR (Cockcroft-Gault) 55.0 BUN/Creatinine Ratio 12 (6-20) Glucose Level 167 mg/dL (70-99) Calcium Level 9.1 mg/dL (8.5-10.1) Total Bilirubin 0.3 mg/dL (0.2-1.0) Aspartate Amino Transf (AST/SGOT) 28 U/L (15-37) Alanine Aminotransferase (ALT/SGPT) 17 U/L (14-59) Alkaline Phosphatase 115 U/L (46-116) Troponin I Quantitative 0.190 ng/mL (0.000-0.055) Total Protein 7.1 g/dL (6.4-8.2) Albumin 3.4 g/dL (3.4-5.0) Albumin/Globulin Ratio 0.9 (1.0-1.7) Thyroid Stimulating Hormone (TSH) 0.150 uIU/mL (0.358-3.74) Medications Active Scripts Medications Dose Route/Sig Max Daily Dose Days Date Category Wellbutrin Xl (Bupropion Hcl) 300 Mg Tab.er.24h 1 Tab PO DAILY 09/02/19 Reported Cyclobenzaprine HCl ER (Cyclobenzaprine HCl) 15 Mg Cap.er.24h 10 Mg PO PRN Q6HRS PRN 09/02/19 Reported Vitamin D3 (Cholecalciferol (Vitamin D3)) 1,000 Unit Tablet 1 Tab PO DAILY 03/11/19 Reported Multivitamins (Multivitamin) 1 Each Tablet 1 Tab PO DAILY 03/11/19 Reported Rosuvastatin Calcium 20 Mg Tablet 20 Mg PO HS 03/11/19 Reported Escitalopram Oxalate 10 Mg Tablet 10 Mg PO DAILY 03/11/19 Reported Trazodone Hcl 100 Mg Tablet 100 Mg PO HS 03/11/19 Reported Alprazolam 1 Mg Tablet 1 Mg PO PRN BID PRN 03/11/19 Reported Olmesartan Medoxomil 20 Mg Tablet 20 Mg PO DAILY 03/11/19 Reported Comments le venous doppler neg Impression . IMPRESSION: 1. Acute hypoxic respiratory failure secondary to acute pulmonary embolism. 2. Abnormal CT chest with large pulmonary emboli seen in the right main pulmonary artery, and also followed in the right middle and right lower lobe pulmonary artery as well as left lower lobe pulmonary arteries. There is evidence of some right heart strain. 3. Faint right upper lobe parenchymal scar versus nodule, which needs to be followed up. 4. Abnormal mass seen in the right kidney, which could be concerning for malignancy. 5. Underlying suspected severe chronic obstructive pulmonary disease w ae Plan . RECOMMENDATIONS: 1. 02 titration to keep sat 92% 2. We will continue with full therapeutic anticoagulation to treat her acute pulmonary embolism. Hemodynamically stable. Does not need TPA. 3. venous Dopplers of lower extremities, neg. 4. She would need further workup of renal mass. If malignancy is confirmed, her pulmonary embolism would be related to hypercoagulable state. She will need lifelong anticoagulation. 5. Smoking cessation counseling provided. 6. bronchodilators. 7. change solumedrol to 40 bid discussed w pt, rn PHILOMENA PARRA MD Sep 03, 2019 12:11
[2019-09-03 13:02] VITALS: BP 131/74
--- NOTE | 2019-09-03 13:26 | NUR ---
patient has orders to transfer. please see paper chart for [facility] downtime documentation.
[2019-09-03] MEDS: HEPARIN 25,000UTS/250ML PREMIX 250 ML IV PRN (15:01)
[2019-09-03 18:00] VITALS: BP 129/58
--- NOTE | 2019-09-03 18:05 | RAD ---
RENAL COMPLETE BILATERAL History: Right renal mass. Comparison: CT June 20, 2015. CT September 01, 2019 Procedure: Transabdominal ultrasound images are obtained of the kidneys and bladder. Findings: Right kidney: measures 10.4 x 5.2 x 4.9 cm. Heterogeneous region within the right superior kidney not well characterized on ultrasound. No hydronephrosis. Left kidney: measures 10.1 x 3.9 x 5.2 cm. Small left renal cyst incidentally noted measures 1.0 x 0.9 x 1.0 cm. No follow-up imaging is recommended per consensus recommendations based on imaging criteria. No hydronephrosis. Urinary bladder: No urinary bladder wall thickening. Patent IVC. IMPRESSION: 1. Heterogeneous region within the right superior kidney corresponding with CT finding. Recommend dedicated renal protocol CT or MRI to definitively characterize. Electronically signed by: Olivier Cabrales DO (09/03/2019 6:02 PM) [id number]
[2019-09-03] MEDS: cefTRIAXone IV Push 1 GM VIAL. IVP SCH (18:28)
[2019-09-03] MEDS: ALPRAZolam 1 MG TABLET PO PRN (18:33)
[2019-09-03 19:57] VITALS: BP 108/76
[2019-09-03] MEDS: LACTOBACILLUS RHAMNOSUS GG 1 CAPSULE. PO SCH (20:54)
[2019-09-03] MEDS: ATORVASTATIN CALCIUM 40 MG TABLET. PO SCH (20:54)
[2019-09-03] MEDS: traZODone 100 MG TABLET. PO SCH (20:55)
[2019-09-03] MEDS: methylPREDNISolone SOD SUCC PF 40 MG/ML VIAL. IV SCH (20:56)
--- NOTE | 2019-09-03 21:09 | CONS ---
DATE OF CONSULTATION: REASON FOR CONSULTATION: Chronic kidney disease stage 3 with right renal mass. HISTORY OF PRESENT ILLNESS: A 69-year-old female who presents to the hospital with history of hypertension, hyperlipidemia and COPD. She has a chronic supplemental oxygen dependence at 2 liters nasal cannula. On presentation at this time, she is noted to have recurrent bouts of cough and sputum production. There has been some right left-sided chest pain. CT angiogram has revealed prominent pulmonary embolism within the right main pulmonary artery extending into the lobar segmental vessels to the right middle lobe and right lower lobe, and less pronounced pulmonary embolic burden to the left seen with lobar arteries in the left lower lobe. She is also noted to have right renal mass concerning for renal cell carcinoma. In this setting, Nephrology evaluation is requested. She has had no gross hematuria. No flank pain. PAST MEDICAL HISTORY: Hypertension, hyperlipidemia, COPD, supplemental oxygen dependent, degenerative arthritis, right total hip arthroplasty, total abdominal hysterectomy and bilateral salpingo-oophorectomy, left wrist fracture, tonsillectomy, left rotator cuff repair. ALLERGIES: None. MEDICATIONS: Reviewed per medication list. FAMILY HISTORY: Noncontributory. SOCIAL HISTORY: The patient resides with her partner and grandson. Smoker for more than 45 years, previously smoking 1 pack per day, now smoking 10 cigarettes a day. No alcohol use. No recreational drug use. REVIEW OF SYSTEMS: No headache, sinus problem, nasal drainage, epistaxis, change in vision or hearing. No difficulty swallowing. No fever or chills. She has had cough or sputum production. No hemoptysis. No abdominal pain. No nausea, vomiting or diarrhea. No seizures or malignancies. No gross hematuria. PHYSICAL EXAMINATION: GENERAL APPEARANCE: The patient is awake, conversant, appropriate. HEENT: Clear. NECK: No increased JVD. No thyromegaly, mass or adenopathy. LUNGS: Clear. CARDIAC: Without S3 or rub. ABDOMEN: Soft, nontender, no bruits. EXTREMITIES: Without edema. NEUROLOGIC: Nonfocal, nonlocalized. PSYCHIATRIC: Fair attention to detail, appropriate affect. LABORATORY DATA: Sodium 138, potassium 4.3, chloride 100, CO2 of 28, BUN 12, creatinine 1.0, GFR 55, calcium 9.1, albumin 3.4. White count 12.3, hemoglobin 15.4, hematocrit 46.2, and platelets 292. IMPRESSION: 1. Right renal mass with concern for renal cell carcinoma per radiology report. Now presentation by pulmonary emboli with concern for hypercoagulable state associated with a paraneoplastic process. 2. Chronic kidney disease stage 3, likely secondary to hypertensive nephrosclerosis. The patient also had contrast administration. With this in mind, she may have acute component of contrast-induced nephrotoxicity. RECOMMENDATIONS: 1. Fluid balance as you are doing. 2. Treatment of pulmonary embolus. 3. Elective renal ultrasound and eventual followup with Urology. At this point, she would likely not be a surgical candidate due to her pulmonary embolus. ROSY MARK MD DR: JESSI/emilie JOB#: [id number] / [id number]
[2019-09-03 23:23] VITALS: BP 139/69
[2019-09-04] MEDS: ALPRAZolam 1 MG TABLET PO PRN ×3 (00:07→18:05)
[2019-09-04 03:59] VITALS: BP 127/61
[2019-09-04 07:00] VITALS: BP 142/81
[2019-09-04] MEDS: IPRATRPIUM/ALBUTEROL 0.5/2.5MG 3 ML NEBU. NEB SCH ×4 (08:08→20:20)
[2019-09-04] MEDS: buPROPion XL 150 MG TAB.ER.24H. PO SCH (08:39)
[2019-09-04] MEDS: LACTOBACILLUS RHAMNOSUS GG 1 CAPSULE. PO SCH ×2 (08:39→20:42)
[2019-09-04] MEDS: methylPREDNISolone SOD SUCC PF 40 MG/ML VIAL. IV SCH (08:40)
[2019-09-04] MEDS: amLODIPine BESYLATE 5 MG TABLET PO SCH (08:40)
[2019-09-04] MEDS: CITALOPRAM 20 MG TABLET. PO SCH (08:40)
[2019-09-04 09:46] LABS: HEMATOCRIT 42.3 % (36.0-47.0); HEMOGLOBIN 13.8 g/dL (12.0-15.5); RED BLOOD COUNT 4.65 x10^6/uL (3.50-5.40); RED CELL DISTRIBUTION WIDTH 16.1 % (11.5-14.5); WHITE BLOOD COUNT 17.9 x10^3/uL (4.0-11.0)
[2019-09-04 09:49] LABS: ALBUMIN 3.4 g/dL (3.4-5.0); ALBUMIN/GLOBULIN RATIO 1.1 (1.0-1.7); CALCIUM 8.8 mg/dL (8.5-10.1); CREATININE 0.9 mg/dL (0.6-1.0); GFR 62.1; POTASSIUM 4.5 mmol/L (3.5-5.1); TOTAL BILIRUBIN 0.2 mg/dL (0.2-1.0); TOTAL PROTEIN 6.4 g/dL (6.4-8.2)
--- NOTE | 2019-09-04 10:46 | PN ---
DATE: 09/04/2019 SUBJECTIVE: The patient is resting, slightly propped up in bed, in no apparent distress. She is awake, alert. Denied any chest pain. She continued to be anxious, but denied any shortness of breath. PHYSICAL EXAMINATION: GENERAL: When I examined her, she looked well and was clearly in no apparent respiratory distress. No pallor, jaundice, cyanosis or thyromegaly. No jugular venous distention. No lower limb edema. VITAL SIGNS: Her heart rate was 83, blood pressure was 142/81, temperature was 97.1, respiratory rate was 22 and oxygen saturation was 93% on 5 liters of oxygen. HEAD, EYES, EARS, NOSE, AND THROAT: Showed normocephalic, atraumatic. NECK: Supple. HEART: Normal first and second heart sounds. No gallop or murmur. CHEST: Clear to auscultation. No crepitation or rhonchi. ABDOMEN: Distended, soft, nontender. NEUROLOGIC: She is awake, alert, responding appropriately. All her cranial nerves are intact. She moves extremities without difficulty. She ambulates without assistance or assistive devices. Her intake and output were incompletely recorded. LABORATORY DATA: Her most recent lab work showed a serum sodium 138, potassium 4.3, chloride 100, bicarbonate 28, anion gap of 10, BUN 12, creatinine 1, estimated GFR was 55 mL per minute. Her glucose was 167, calcium was 9.1. Total bilirubin, AST, ALT, alkaline phosphatase were normal. Her TSH is low at 0.150. Her white cell count was 12,300; hemoglobin 15; hematocrit 46; MCV 90 and platelet count 292,000 with normal manual differential. ASSESSMENT: 1. Acute pulmonary embolism, for which she is currently on heparin drip. 2. Chronic obstructive pulmonary disease exacerbation, for which she is on IV Solu-Medrol, nebulized albuterol and Atrovent, ceftriaxone, and Zithromax. OTHER MEDICAL PROBLEMS: Include: A. Hypertension. B. Hyperlipidemia. C. She has a mass on her right kidney, which is heterogenous within the right superior kidney corresponding to CT finding. PLAN: To continue with heparin drip, continue with steroids, continue with IV antibiotics. For any anxiety, increase her alprazolam to 1 mg every 6 hours. Once she is switched to oral anticoagulant, the patient can be discharged home with an arrangement for her to be seen by a urologist with the aim of resecting her right renal tumor. TANNA PERALTA MD DR: ROSA M/emilie JOB#: [id number] / [id number]
[2019-09-04 11:00] VITALS: BP 120/77
--- NOTE | 2019-09-04 11:02 | PDOC ---
PULMONARY PROGRESS NOTES Subjective n 02, 4 lpm, sob better, has occ cough, no sputum, has occ chest tightness, feeling better, on qhs o2 2 lpm at home Vitals Vital Signs Date Time Temp Pulse Resp B/P (MAP) Pulse Ox O2 Delivery O2 Flow Rate FiO2 09/04/19 08:40 142/81 09/04/19 08:12 93 Nasal Cannula 5.0 09/04/19 07:00 97.1 83 22 97.1 Comments ros as mentioned as above other sys otherwise neg ROS: No Nausea General: Alert, Oriented X4 HEENT: Other (nc at perrl nose throat clear neck no lad no thyromegaly) Lungs: Clear Cardiovascular: S1, S2 Abdomen: Soft, Non-tender, Other (no mass) Neuro Exam: Alert Extremities: No Edema Skin: Warm Labs Laboratory Tests Test 09/02/19 14:10 09/02/19 20:10 09/03/19 11:05 09/03/19 18:15 White Blood Count 12.3 x10^3/uL (4.0-11.0) Red Blood Count 5.13 x10^6/uL (3.50-5.40) Hemoglobin 15.4 g/dL (12.0-15.5) Hematocrit 46.2 % (36.0-47.0) Mean Corpuscular Volume 90 fL (79-100) Mean Corpuscular Hemoglobin 30 pg (25-35) Mean Corpuscular Hemoglobin Concent 33 g/dL (31-37) Red Cell Distribution Width 15.8 % (11.5-14.5) Platelet Count 292 x10^3/uL (140-400) Neutrophils (%) (Auto) 92 % (31-73) Lymphocytes (%) (Auto) 7 % (24-48) Monocytes (%) (Auto) 1 % (0-9) Eosinophils (%) (Auto) 0 % (0-3) Basophils (%) (Auto) 1 % (0-3) Neutrophils # (Auto) 11.4 x10^3/uL (1.8-7.7) Lymphocytes # (Auto) 0.8 x10^3/uL (1.0-4.8) Monocytes # (Auto) 0.1 x10^3/uL (0.0-1.1) Eosinophils # (Auto) 0.0 x10^3/uL (0.0-0.7) Basophils # (Auto) 0.1 x10^3/uL (0.0-0.2) Segmented Neutrophils % 87 % (35-66) Band Neutrophils % 6 % (0-9) Lymphocytes % 3 % (24-48) Atypical Lymphocytes % (Manual) 2 % (0-0) Monocytes % 2 % (0-10) Platelet Estimate Adequate (ADEQUATE) Ovalocytes Few Schistocytes Occ Prothrombin Time 13.9 SEC (11.7-14.0) Prothromb Time International Ratio 1.1 (0.8-1.1) Activated Partial Thromboplast Time 53 SEC (24-38) Heparin Anti-Xa Act, Unfractionated 0.49 IU/mL (0.30-0.70) 1.03 IU/mL (0.30-0.70) 0.66 IU/mL (0.30-0.70) 0.77 IU/mL (0.30-0.70) Sodium Level 138 mmol/L (136-145) Potassium Level 4.3 mmol/L (3.5-5.1) Chloride Level 100 mmol/L (98-107) Carbon Dioxide Level 28 mmol/L (21-32) Anion Gap 10 (6-14) Blood Urea Nitrogen 12 mg/dL (7-20) Creatinine 1.0 mg/dL (0.6-1.0) Estimated GFR (Cockcroft-Gault) 55.0 BUN/Creatinine Ratio 12 (6-20) Glucose Level 167 mg/dL (70-99) Calcium Level 9.1 mg/dL (8.5-10.1) Total Bilirubin 0.3 mg/dL (0.2-1.0) Aspartate Amino Transf (AST/SGOT) 28 U/L (15-37) Alanine Aminotransferase (ALT/SGPT) 17 U/L (14-59) Alkaline Phosphatase 115 U/L (46-116) Troponin I Quantitative 0.190 ng/mL (0.000-0.055) Total Protein 7.1 g/dL (6.4-8.2) Albumin 3.4 g/dL (3.4-5.0) Albumin/Globulin Ratio 0.9 (1.0-1.7) Thyroid Stimulating Hormone (TSH) 0.150 uIU/mL (0.358-3.74) Test 09/04/19 01:15 09/04/19 07:40 Heparin Anti-Xa Act, Unfractionated 0.57 IU/mL (0.30-0.70) 0.49 IU/mL (0.30-0.70) White Blood Count 17.9 x10^3/uL (4.0-11.0) Red Blood Count 4.65 x10^6/uL (3.50-5.40) Hemoglobin 13.8 g/dL (12.0-15.5) Hematocrit 42.3 % (36.0-47.0) Mean Corpuscular Volume 91 fL (79-100) Mean Corpuscular Hemoglobin 30 pg (25-35) Mean Corpuscular Hemoglobin Concent 33 g/dL (31-37) Red Cell Distribution Width 16.1 % (11.5-14.5) Platelet Count 287 x10^3/uL (140-400) Sodium Level 140 mmol/L (136-145) Potassium Level 4.5 mmol/L (3.5-5.1) Chloride Level 105 mmol/L (98-107) Carbon Dioxide Level 30 mmol/L (21-32) Anion Gap 5 (6-14) Blood Urea Nitrogen 17 mg/dL (7-20) Creatinine 0.9 mg/dL (0.6-1.0) Estimated GFR (Cockcroft-Gault) 62.1 BUN/Creatinine Ratio 19 (6-20) Glucose Level 120 mg/dL (70-99) Calcium Level 8.8 mg/dL (8.5-10.1) Total Bilirubin 0.2 mg/dL (0.2-1.0) Aspartate Amino Transf (AST/SGOT) 38 U/L (15-37) Alanine Aminotransferase (ALT/SGPT) 19 U/L (14-59) Alkaline Phosphatase 93 U/L (46-116) Total Protein 6.4 g/dL (6.4-8.2) Albumin 3.4 g/dL (3.4-5.0) Albumin/Globulin Ratio 1.1 (1.0-1.7) Laboratory Tests Test 09/03/19 11:05 09/03/19 18:15 09/04/19 01:15 09/04/19 07:40 Heparin Anti-Xa Act, Unfractionated 0.66 IU/mL (0.30-0.70) 0.77 IU/mL (0.30-0.70) 0.57 IU/mL (0.30-0.70) 0.49 IU/mL (0.30-0.70) White Blood Count 17.9 x10^3/uL (4.0-11.0) Red Blood Count 4.65 x10^6/uL (3.50-5.40) Hemoglobin 13.8 g/dL (12.0-15.5) Hematocrit 42.3 % (36.0-47.0) Mean Corpuscular Volume 91 fL (79-100) Mean Corpuscular Hemoglobin 30 pg (25-35) Mean Corpuscular Hemoglobin Concent 33 g/dL (31-37) Red Cell Distribution Width 16.1 % (11.5-14.5) Platelet Count 287 x10^3/uL (140-400) Sodium Level 140 mmol/L (136-145) Potassium Level 4.5 mmol/L (3.5-5.1) Chloride Level 105 mmol/L (98-107) Carbon Dioxide Level 30 mmol/L (21-32) Anion Gap 5 (6-14) Blood Urea Nitrogen 17 mg/dL (7-20) Creatinine 0.9 mg/dL (0.6-1.0) Estimated GFR (Cockcroft-Gault) 62.1 BUN/Creatinine Ratio 19 (6-20) Glucose Level 120 mg/dL (70-99) Calcium Level 8.8 mg/dL (8.5-10.1) Total Bilirubin 0.2 mg/dL (0.2-1.0) Aspartate Amino Transf (AST/SGOT) 38 U/L (15-37) Alanine Aminotransferase (ALT/SGPT) 19 U/L (14-59) Alkaline Phosphatase 93 U/L (46-116) Total Protein 6.4 g/dL (6.4-8.2) Albumin 3.4 g/dL (3.4-5.0) Albumin/Globulin Ratio 1.1 (1.0-1.7) Medications Active Scripts Medications Dose Route/Sig Max Daily Dose Days Date Category Wellbutrin Xl (Bupropion Hcl) 300 Mg Tab.er.24h 1 Tab PO DAILY 09/02/19 Reported Cyclobenzaprine HCl ER (Cyclobenzaprine HCl) 15 Mg Cap.er.24h 10 Mg PO PRN Q6HRS PRN 09/02/19 Reported Vitamin D3 (Cholecalciferol (Vitamin D3)) 1,000 Unit Tablet 1 Tab PO DAILY 03/11/19 Reported Multivitamins (Multivitamin) 1 Each Tablet 1 Tab PO DAILY 03/11/19 Reported Rosuvastatin Calcium 20 Mg Tablet 20 Mg PO HS 03/11/19 Reported Escitalopram Oxalate 10 Mg Tablet 10 Mg PO DAILY 03/11/19 Reported Trazodone Hcl 100 Mg Tablet 100 Mg PO HS 03/11/19 Reported Alprazolam 1 Mg Tablet 1 Mg PO PRN BID PRN 03/11/19 Reported Olmesartan Medoxomil 20 Mg Tablet 20 Mg PO DAILY 03/11/19 Reported Comments le venous doppler neg Impression . IMPRESSION: 1. Acute hypoxic respiratory failure secondary to acute pulmonary embolism. 2. Abnormal CT chest with large pulmonary emboli seen in the right main pulmonary artery, and also followed in the right middle and right lower lobe pulmonary artery as well as left lower lobe pulmonary arteries. There is evidence of some right heart strain. 3. Faint right upper lobe parenchymal scar versus nodule, which needs to be followed up. 4. Abnormal mass seen in the right kidney, which could be concerning for malignancy. 5. Underlying suspected severe chronic obstructive pulmonary disease w ae Plan . RECOMMENDATIONS: 1. 02 titration to keep sat 92%, still hypoxemic 2. We will continue with full therapeutic anticoagulation to treat her acute pulmonary embolism. Hemodynamically stable. Does not need TPA. 3. venous Dopplers of lower extremities, neg. 4. She would need further workup of renal mass. If malignancy is confirmed, her pulmonary embolism would be related to hypercoagulable state. She would need lifelong anticoagulation. 5. Smoking cessation counseling provided. 6. bronchodilators. 7. change solumedrol to prednisone 40 mg daily discussed w pt, rn PHILOMENA PARRA MD Sep 04, 2019 11:01
--- NOTE | 2019-09-04 12:29 | PDOC ---
PROGRESS NOTES Subjective Subjective Patient seen and examined Objective Objective Vital Signs Date Time Temp Pulse Resp B/P (MAP) Pulse Ox O2 Delivery O2 Flow Rate FiO2 09/04/19 11:36 92 Nasal Cannula 5.0 09/04/19 08:40 142/81 09/04/19 07:00 97.1 83 22 97.1 Intake and Output 09/04/19 07:00 Intake Total 1038 ml Output Total 550 ml Balance 488 ml Intake Oral 1038 ml Output Urine Total 550 ml # Voids 1 Physical Exam Abdomen: Normal bowel sounds Heart: Regular rate General: No acute distress Lungs: Other (slightly decreased breath sounds) Assessment Assessment Acute pulmonary embolism. Patient was started on a heparin drip. 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 ECHO shows right side strain with a PAP elevated at 44-50 mmHg. Acute diastolic heart failure. Secondary the patient's PE. Continue present treatment. Improved. Possible right renal malignancy. Workup as per the primary service. Hypertension. On Norvasc. Continuing to monitor. Hyperlipidemia. Continue statin. Acute exacerbation of COPD. Pulmonary treatments. Discontinue smoking. Comment Review of Relevant I have reviewed the following items nupur (where applicable) has been applied. Labs Laboratory Tests Test 09/02/19 14:10 09/02/19 20:10 09/03/19 11:05 09/03/19 18:15 White Blood Count 12.3 x10^3/uL (4.0-11.0) Red Blood Count 5.13 x10^6/uL (3.50-5.40) Hemoglobin 15.4 g/dL (12.0-15.5) Hematocrit 46.2 % (36.0-47.0) Mean Corpuscular Volume 90 fL (79-100) Mean Corpuscular Hemoglobin 30 pg (25-35) Mean Corpuscular Hemoglobin Concent 33 g/dL (31-37) Red Cell Distribution Width 15.8 % (11.5-14.5) Platelet Count 292 x10^3/uL (140-400) Neutrophils (%) (Auto) 92 % (31-73) Lymphocytes (%) (Auto) 7 % (24-48) Monocytes (%) (Auto) 1 % (0-9) Eosinophils (%) (Auto) 0 % (0-3) Basophils (%) (Auto) 1 % (0-3) Neutrophils # (Auto) 11.4 x10^3/uL (1.8-7.7) Lymphocytes # (Auto) 0.8 x10^3/uL (1.0-4.8) Monocytes # (Auto) 0.1 x10^3/uL (0.0-1.1) Eosinophils # (Auto) 0.0 x10^3/uL (0.0-0.7) Basophils # (Auto) 0.1 x10^3/uL (0.0-0.2) Segmented Neutrophils % 87 % (35-66) Band Neutrophils % 6 % (0-9) Lymphocytes % 3 % (24-48) Atypical Lymphocytes % (Manual) 2 % (0-0) Monocytes % 2 % (0-10) Platelet Estimate Adequate (ADEQUATE) Ovalocytes Few Schistocytes Occ Prothrombin Time 13.9 SEC (11.7-14.0) Prothromb Time International Ratio 1.1 (0.8-1.1) Activated Partial Thromboplast Time 53 SEC (24-38) Heparin Anti-Xa Act, Unfractionated 0.49 IU/mL (0.30-0.70) 1.03 IU/mL (0.30-0.70) 0.66 IU/mL (0.30-0.70) 0.77 IU/mL (0.30-0.70) Sodium Level 138 mmol/L (136-145) Potassium Level 4.3 mmol/L (3.5-5.1) Chloride Level 100 mmol/L (98-107) Carbon Dioxide Level 28 mmol/L (21-32) Anion Gap 10 (6-14) Blood Urea Nitrogen 12 mg/dL (7-20) Creatinine 1.0 mg/dL (0.6-1.0) Estimated GFR (Cockcroft-Gault) 55.0 BUN/Creatinine Ratio 12 (6-20) Glucose Level 167 mg/dL (70-99) Calcium Level 9.1 mg/dL (8.5-10.1) Total Bilirubin 0.3 mg/dL (0.2-1.0) Aspartate Amino Transf (AST/SGOT) 28 U/L (15-37) Alanine Aminotransferase (ALT/SGPT) 17 U/L (14-59) Alkaline Phosphatase 115 U/L (46-116) Troponin I Quantitative 0.190 ng/mL (0.000-0.055) Total Protein 7.1 g/dL (6.4-8.2) Albumin 3.4 g/dL (3.4-5.0) Albumin/Globulin Ratio 0.9 (1.0-1.7) Thyroid Stimulating Hormone (TSH) 0.150 uIU/mL (0.358-3.74) Test 09/04/19 01:15 09/04/19 07:40 Heparin Anti-Xa Act, Unfractionated 0.57 IU/mL (0.30-0.70) 0.49 IU/mL (0.30-0.70) White Blood Count 17.9 x10^3/uL (4.0-11.0) Red Blood Count 4.65 x10^6/uL (3.50-5.40) Hemoglobin 13.8 g/dL (12.0-15.5) Hematocrit 42.3 % (36.0-47.0) Mean Corpuscular Volume 91 fL (79-100) Mean Corpuscular Hemoglobin 30 pg (25-35) Mean Corpuscular Hemoglobin Concent 33 g/dL (31-37) Red Cell Distribution Width 16.1 % (11.5-14.5) Platelet Count 287 x10^3/uL (140-400) Sodium Level 140 mmol/L (136-145) Potassium Level 4.5 mmol/L (3.5-5.1) Chloride Level 105 mmol/L (98-107) Carbon Dioxide Level 30 mmol/L (21-32) Anion Gap 5 (6-14) Blood Urea Nitrogen 17 mg/dL (7-20) Creatinine 0.9 mg/dL (0.6-1.0) Estimated GFR (Cockcroft-Gault) 62.1 BUN/Creatinine Ratio 19 (6-20) Glucose Level 120 mg/dL (70-99) Calcium Level 8.8 mg/dL (8.5-10.1) Total Bilirubin 0.2 mg/dL (0.2-1.0) Aspartate Amino Transf (AST/SGOT) 38 U/L (15-37) Alanine Aminotransferase (ALT/SGPT) 19 U/L (14-59) Alkaline Phosphatase 93 U/L (46-116) Total Protein 6.4 g/dL (6.4-8.2) Albumin 3.4 g/dL (3.4-5.0) Albumin/Globulin Ratio 1.1 (1.0-1.7) Laboratory Tests Test 09/03/19 18:15 09/04/19 01:15 09/04/19 07:40 Heparin Anti-Xa Act, Unfractionated 0.77 IU/mL (0.30-0.70) 0.57 IU/mL (0.30-0.70) 0.49 IU/mL (0.30-0.70) White Blood Count 17.9 x10^3/uL (4.0-11.0) Red Blood Count 4.65 x10^6/uL (3.50-5.40) Hemoglobin 13.8 g/dL (12.0-15.5) Hematocrit 42.3 % (36.0-47.0) Mean Corpuscular Volume 91 fL (79-100) Mean Corpuscular Hemoglobin 30 pg (25-35) Mean Corpuscular Hemoglobin Concent 33 g/dL (31-37) Red Cell Distribution Width 16.1 % (11.5-14.5) Platelet Count 287 x10^3/uL (140-400) Sodium Level 140 mmol/L (136-145) Potassium Level 4.5 mmol/L (3.5-5.1) Chloride Level 105 mmol/L (98-107) Carbon Dioxide Level 30 mmol/L (21-32) Anion Gap 5 (6-14) Blood Urea Nitrogen 17 mg/dL (7-20) Creatinine 0.9 mg/dL (0.6-1.0) Estimated GFR (Cockcroft-Gault) 62.1 BUN/Creatinine Ratio 19 (6-20) Glucose Level 120 mg/dL (70-99) Calcium Level 8.8 mg/dL (8.5-10.1) Total Bilirubin 0.2 mg/dL (0.2-1.0) Aspartate Amino Transf (AST/SGOT) 38 U/L (15-37) Alanine Aminotransferase (ALT/SGPT) 19 U/L (14-59) Alkaline Phosphatase 93 U/L (46-116) Total Protein 6.4 g/dL (6.4-8.2) Albumin 3.4 g/dL (3.4-5.0) Albumin/Globulin Ratio 1.1 (1.0-1.7) Medications Current Medications Acetaminophen (Tylenol) 650 mg PRN Q6HRS PRN PO MILD PAIN / TEMP; Start 09/02/19 at 12:15 Albuterol/ Ipratropium (Duoneb) 3 ml RTQID NEB Last administered on 09/04/19at 11:34; Start 09/02/19 at 12:30 Lorazepam (Ativan Inj) 0.5 mg PRN Q6HRS PRN IVP ANXIETY / AGITATION Last administered on 09/02/19at 15:39; Start 09/02/19 at 12:15 Ceftriaxone Sodium (Rocephin) 1 gm Q24H IVP ; Start 09/02/19 at 13:00; Stop 09/02/19 at 12:39; Status DC Methylprednisolone Sodium Succinate (SOLU-Medrol 40MG VIAL) 40 mg Q8HRS IV Last administered on 09/02/19at 21:19; Start 09/02/19 at 13:00; Stop 09/03/19 at 11:22; Status DC Alprazolam (Xanax) 1 mg PRN BID PRN PO ANXIETY / AGITATION Last administered on 09/04/19at 00:07; Start 09/02/19 at 12:30; Stop 09/04/19 at 09:30; Status DC Trazodone HCl (Desyrel) 100 mg HS PO Last administered on 09/03/19at 20:55; Start 09/02/19 at 21:00 Bupropion HCl (Wellbutrin Xl) 300 mg DAILY PO Last administered on 09/04/19at 08:39; Start 09/02/19 at 14:00 Cyclobenzaprine HCl (Flexeril) 10 mg PRN Q6HRS PRN PO MUSCLE SPASMS; Start 09/02/19 at 12:45 Citalopram Hydrobromide (CeleXA) 20 mg DAILY PO Last administered on 09/04/19 08:40; Start 09/02/19 at 14:00 Atorvastatin Calcium (Lipitor) 80 mg QHS PO Last administered on 09/03/19at 20:54; Start 09/02/19 at 21:00 Ceftriaxone Sodium (Rocephin) 1 gm Q24H IVP Last administered on 3/14/20at 18:28; Start 09/02/19 at 17:00 Hydralazine HCl (Apresoline Inj) 10 mg PRN Q4HRS PRN IVP ELEVATED BP, SEE COMMENTS; Start 09/02/19 at 14:00 Heparin Sodium/ Dextrose 250 ml @ 0 mls/hr CONT PRN IV PER PROTOCOL Last administered on 09/03/19at 15:01; Start 09/02/19 at 14:30 Heparin Sodium (Porcine) (Heparin Sodium) 2,400 unit PRN Q6HRS PRN IV FOR UFH LEVEL LESS THAN 0.2; Start 09/02/19 at 14:30 Heparin Sodium (Porcine) (Heparin Sodium) 1,200 unit PRN Q6HRS PRN IV FOR UFH LEVEL 0.2 - 0.29; Start 09/02/19 at 14:30 Info (Anti-Coagulation Monitoring By Pharmacy) 1 each PRN DAILY PRN MC SEE COMMENTS; Start 09/02/19 at 14:45 Amlodipine Besylate (Norvasc) 5 mg DAILY PO Last administered on 09/04/19at 08:40; Start 09/03/19 at 09:00 Influenza Virus Vaccine Quadrival (Afluria Quad 2019-20 (3yr Up) Syringe) 0.5 ml ONCE ONCE VAX IM ; Start 09/02/19 at 19:00; Stop 09/02/19 at 19:01; Status DC Methylprednisolone Sodium Succinate (SOLU-Medrol 40MG VIAL) 40 mg Q12HR IV Last administered on 09/04/19at 08:40; Start 09/03/19 at 21:00; Stop 09/04/19 at 11:04; Status DC Lactobacillus Rhamnosus (Culturelle) 1 cap BID PO Last administered on 09/04/19at 08:39; Start 09/03/19 at 21:00 Alprazolam (Xanax) 1 mg PRN Q6HRS PRN PO ANXIETY / AGITATION Last administered on 09/04/19at 12:21; Start 09/04/19 at 09:30 Prednisone (Prednisone) 40 mg DAILY PO ; Start 09/05/19 at 09:00 Active Scripts Active Reported Wellbutrin Xl (Bupropion Hcl) 300 Mg Tab.er.24h 1 Tab PO DAILY Cyclobenzaprine HCl ER (Cyclobenzaprine HCl) 15 Mg Cap.er.24h 10 Mg PO PRN Q6HRS PRN Vitamin D3 (Cholecalciferol (Vitamin D3)) 1,000 Unit Tablet 1 Tab PO DAILY Multivitamins (Multivitamin) 1 Each Tablet 1 Tab PO DAILY Rosuvastatin Calcium 20 Mg Tablet 20 Mg PO HS Escitalopram Oxalate 10 Mg Tablet 10 Mg PO DAILY Trazodone Hcl 100 Mg Tablet 100 Mg PO HS Alprazolam 1 Mg Tablet 1 Mg PO PRN BID PRN Olmesartan Medoxomil 20 Mg Tablet 20 Mg PO DAILY Vitals/I & O Vital Sign - Last 24 Hours 09/03/19 09/03/19 09/03/19 09/03/19 13:02 15:30 15:59 18:00 Temp 98.2 98.2 Pulse 89 90 Resp 23 18 B/P (MAP) 131/74 (93) 129/58 (81) Pulse Ox 93 94 O2 Delivery Room Air Nasal Cannula Nasal Cannula Nasal Cannula O2 Flow Rate 4.0 4.0 4.0 09/03/19 09/03/19 09/03/19 09/03/19 19:57 20:00 20:54 23:23 Temp 98.0 97.5 98.0 97.5 Pulse 90 89 Resp 18 18 B/P (MAP) 108/76 (87) 139/69 (92) Pulse Ox 93 96 93 O2 Delivery Nasal Cannula Nasal Cannula Nasal Cannula Nasal Cannula O2 Flow Rate 4.0 4.0 4.0 4.0 09/04/19 09/04/19 09/04/19 09/04/19 03:59 07:00 08:01 08:12 Temp 97.6 97.1 97.6 97.1 Pulse 72 83 Resp 18 22 B/P (MAP) 127/61 (83) 142/81 (101) Pulse Ox 92 93 93 O2 Delivery Nasal Cannula Nasal Cannula Nasal Cannula Nasal Cannula O2 Flow Rate 4.0 4.0 4.0 5.0 09/04/19 09/04/19 08:40 11:36 B/P (MAP) 142/81 Pulse Ox 92 O2 Delivery Nasal Cannula O2 Flow Rate 5.0 Intake and Output 09/03/19 09/03/19 09/04/19 15:00 23:00 07:00 Intake Total 618 ml 120 ml 300 ml Output Total 550 ml Balance 618 ml 120 ml -250 ml BRUCE TINOCO MD Sep 04, 2019 12:29
[2019-09-04 15:00] VITALS: BP 116/71
[2019-09-04] MEDS: cefTRIAXone IV Push 1 GM VIAL. IVP SCH (17:57)
[2019-09-04 19:55] VITALS: BP 116/65
[2019-09-04] MEDS: ATORVASTATIN CALCIUM 40 MG TABLET. PO SCH (20:42)
[2019-09-04] MEDS: traZODone 100 MG TABLET. PO SCH (20:42)
[2019-09-04 22:41] VITALS: BP 122/65
[2019-09-05 03:18] VITALS: BP 123/69
[2019-09-05 05:40] LABS: CALCIUM 8.6 mg/dL (8.5-10.1); CREATININE 0.9 mg/dL (0.6-1.0); GFR 62.1
[2019-09-05 07:00] VITALS: BP 112/61
[2019-09-05] MEDS: IPRATRPIUM/ALBUTEROL 0.5/2.5MG 3 ML NEBU. NEB SCH ×3 (07:37→20:05)
--- NOTE | 2019-09-05 08:36 | PDOC ---
PULMONARY PROGRESS NOTES Subjective PT NOT MORE SOA FEELS LESS SOA Vitals Vital Signs Date Time Temp Pulse Resp B/P (MAP) Pulse Ox O2 Delivery O2 Flow Rate FiO2 09/05/19 07:39 91 Nasal Cannula 5.0 09/05/19 07:00 97.4 67 20 112/61 (78) 97.4 Comments ros as mentioned as above other sys otherwise neg ROS: No Nausea General: Alert, Oriented X4 HEENT: Other (nc at perrl nose throat clear neck no lad no thyromegaly) Lungs: Clear Cardiovascular: S1, S2 Abdomen: Soft, Non-tender, Other (no mass) Neuro Exam: Alert Extremities: No Edema Skin: Warm Labs Laboratory Tests Test 09/03/19 11:05 09/03/19 18:15 09/04/19 01:15 09/04/19 07:40 Heparin Anti-Xa Act, Unfractionated 0.66 IU/mL (0.30-0.70) 0.77 IU/mL (0.30-0.70) 0.57 IU/mL (0.30-0.70) 0.49 IU/mL (0.30-0.70) White Blood Count 17.9 x10^3/uL (4.0-11.0) Red Blood Count 4.65 x10^6/uL (3.50-5.40) Hemoglobin 13.8 g/dL (12.0-15.5) Hematocrit 42.3 % (36.0-47.0) Mean Corpuscular Volume 91 fL (79-100) Mean Corpuscular Hemoglobin 30 pg (25-35) Mean Corpuscular Hemoglobin Concent 33 g/dL (31-37) Red Cell Distribution Width 16.1 % (11.5-14.5) Platelet Count 287 x10^3/uL (140-400) Sodium Level 140 mmol/L (136-145) Potassium Level 4.5 mmol/L (3.5-5.1) Chloride Level 105 mmol/L (98-107) Carbon Dioxide Level 30 mmol/L (21-32) Anion Gap 5 (6-14) Blood Urea Nitrogen 17 mg/dL (7-20) Creatinine 0.9 mg/dL (0.6-1.0) Estimated GFR (Cockcroft-Gault) 62.1 BUN/Creatinine Ratio 19 (6-20) Glucose Level 120 mg/dL (70-99) Calcium Level 8.8 mg/dL (8.5-10.1) Total Bilirubin 0.2 mg/dL (0.2-1.0) Aspartate Amino Transf (AST/SGOT) 38 U/L (15-37) Alanine Aminotransferase (ALT/SGPT) 19 U/L (14-59) Alkaline Phosphatase 93 U/L (46-116) Total Protein 6.4 g/dL (6.4-8.2) Albumin 3.4 g/dL (3.4-5.0) Albumin/Globulin Ratio 1.1 (1.0-1.7) Test 09/05/19 05:00 Heparin Anti-Xa Act, Unfractionated 0.49 IU/mL (0.30-0.70) Sodium Level 144 mmol/L (136-145) Potassium Level 4.0 mmol/L (3.5-5.1) Chloride Level 107 mmol/L (98-107) Carbon Dioxide Level 30 mmol/L (21-32) Anion Gap 7 (6-14) Blood Urea Nitrogen 16 mg/dL (7-20) Creatinine 0.9 mg/dL (0.6-1.0) Estimated GFR (Cockcroft-Gault) 62.1 Glucose Level 94 mg/dL (70-99) Calcium Level 8.6 mg/dL (8.5-10.1) Laboratory Tests Test 09/05/19 05:00 Heparin Anti-Xa Act, Unfractionated 0.49 IU/mL (0.30-0.70) Sodium Level 144 mmol/L (136-145) Potassium Level 4.0 mmol/L (3.5-5.1) Chloride Level 107 mmol/L (98-107) Carbon Dioxide Level 30 mmol/L (21-32) Anion Gap 7 (6-14) Blood Urea Nitrogen 16 mg/dL (7-20) Creatinine 0.9 mg/dL (0.6-1.0) Estimated GFR (Cockcroft-Gault) 62.1 Glucose Level 94 mg/dL (70-99) Calcium Level 8.6 mg/dL (8.5-10.1) Medications Active Scripts Medications Dose Route/Sig Max Daily Dose Days Date Category Wellbutrin Xl (Bupropion Hcl) 300 Mg Tab.er.24h 1 Tab PO DAILY 09/02/19 Reported Cyclobenzaprine HCl ER (Cyclobenzaprine HCl) 15 Mg Cap.er.24h 10 Mg PO PRN Q6HRS PRN 09/02/19 Reported Vitamin D3 (Cholecalciferol (Vitamin D3)) 1,000 Unit Tablet 1 Tab PO DAILY 03/11/19 Reported Multivitamins (Multivitamin) 1 Each Tablet 1 Tab PO DAILY 03/11/19 Reported Rosuvastatin Calcium 20 Mg Tablet 20 Mg PO HS 03/11/19 Reported Escitalopram Oxalate 10 Mg Tablet 10 Mg PO DAILY 03/11/19 Reported Trazodone Hcl 100 Mg Tablet 100 Mg PO HS 03/11/19 Reported Alprazolam 1 Mg Tablet 1 Mg PO PRN BID PRN 03/11/19 Reported Olmesartan Medoxomil 20 Mg Tablet 20 Mg PO DAILY 03/11/19 Reported Comments le venous doppler neg Impression . IMPRESSION: 1. Acute hypoxic respiratory failure secondary to acute pulmonary embolism. 2. Abnormal CT chest with large pulmonary emboli seen in the right main pulmonary artery, and also followed in the right middle and right lower lobe pulmonary artery as well as left lower lobe pulmonary arteries. There is evidence of some right heart strain. 3. Faint right upper lobe parenchymal scar versus nodule, which needs to be followed up. 4. Abnormal mass seen in the right kidney, which could be concerning for malignancy. 5. Underlying suspected severe chronic obstructive pulmonary disease w ae Plan . 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
[2019-09-05] MEDS: predniSONE 20 MG TABLET PO SCH (08:49)
[2019-09-05] MEDS: LACTOBACILLUS RHAMNOSUS GG 1 CAPSULE. PO SCH ×2 (08:49→21:20)
[2019-09-05] MEDS: buPROPion XL 150 MG TAB.ER.24H. PO SCH (08:49)
[2019-09-05] MEDS: CITALOPRAM 20 MG TABLET. PO SCH (08:49)
[2019-09-05] MEDS: amLODIPine BESYLATE 5 MG TABLET PO SCH (08:50)
[2019-09-05] MEDS: HEPARIN 25,000UTS/250ML PREMIX 250 ML IV PRN (09:43)
[2019-09-05 11:00] VITALS: BP 113/61
--- NOTE | 2019-09-05 11:19 | PN ---
DATE: 09/05/2019 SUBJECTIVE: The patient is resting, slightly propped up in bed, in no apparent distress. She is awake, alert on questioning her. Denied any chest pain, shortness of breath. She has a good night sleep according to her. PHYSICAL EXAMINATION: GENERAL: When I examined her, she looked well and was clearly in no apparent respiratory distress. There is definitely no pallor, jaundice, cyanosis or thyromegaly. No jugular venous distention. No lower limb edema. VITAL SIGNS: Her heart rate was 67, blood pressure was 112/61, temperature was 97.4, respiratory rate was 20, and oxygen saturation was 93% on 5 liters of oxygen. HEAD, EYES, EARS, NOSE AND THROAT: Showed normocephalic, atraumatic. NECK: Supple. HEART: Showed normal first and second heart sounds. No gallop, rub or murmur. CHEST: Clear to auscultation. No crepitation or rhonchi. ABDOMEN: Distended, soft, nontender. NEUROLOGIC: She is awake, alert, responding appropriately. Her intake was 1000, output was 550. LABORATORY DATA: As of yesterday, her white cell count was 17,900, hemoglobin 14, hematocrit 42, MCV 91, and platelet count 287. Her chemistry showed a serum sodium 144, potassium 4, chloride 97, bicarbonate 30, anion gap of 7, BUN 16, creatinine 0.9, estimated GFR was 62 mL per minute. Her glucose was 94, calcium was 8.6. ASSESSMENT: 1. Acute pulmonary embolism, for which she is currently on heparin drip. 2. Chronic obstructive pulmonary disease exacerbation for which she is on IV Solu-Medrol, nebulized albuterol and Atrovent, Ativan, ceftriaxone and Zithromax. 3. Other medical problems include: A. Hypertension. B. Hyperlipidemia. C. Mass in the right kidney, heterogenous within the right superior kidney corresponding to CT findings concerning for possibility of renal cell cancer. D. Severe anxiety. PLAN: To continue with IV heparin. Continue with oral steroids. Await the decision to switch her to oral anticoagulant, after which she will be discharged and we will arrange for her to be seen by urologist. TANNA PERALTA MD DR: ROSA M/emilie JOB#: [id number] / [id number]
--- NOTE | 2019-09-05 12:26 | PDOC ---
Renal-Progress Notes Subjective Notes Notes NO NEW COMPLAINTS History of Present Illness Hx of present illness STABLE Vitals Vitals Vital Signs Date Time Temp Pulse Resp B/P (MAP) Pulse Ox O2 Delivery O2 Flow Rate FiO2 09/05/19 08:50 75 09/05/19 08:05 Nasal Cannula 4.0 09/05/19 07:39 91 09/05/19 07:00 97.4 20 112/61 (78) 97.4 Weight Weight [ ] I.O. Intake and Output Intake and Output 09/05/19 06:59 Intake Total 630 ml Output Total 900 ml Balance -270 ml Intake Oral 630 ml Output Urine Total 900 ml Labs Labs Laboratory Tests Test 09/05/19 05:00 Heparin Anti-Xa Act, Unfractionated 0.49 IU/mL (0.30-0.70) Sodium Level 144 mmol/L (136-145) Potassium Level 4.0 mmol/L (3.5-5.1) Chloride Level 107 mmol/L (98-107) Carbon Dioxide Level 30 mmol/L (21-32) Anion Gap 7 (6-14) Blood Urea Nitrogen 16 mg/dL (7-20) Creatinine 0.9 mg/dL (0.6-1.0) Estimated GFR (Cockcroft-Gault) 62.1 Glucose Level 94 mg/dL (70-99) Calcium Level 8.6 mg/dL (8.5-10.1) Review of Systems Constitutional: yes: weakness, alert, oriented Ears/Nose/Throat: Yes: no symptom reported Eyes: Yes: no symptom reported Pulmonary: Yes dyspnea Cardiovascular: Yes no symptom reported Gastrointestional: Yes: no symptom reported Genitourinary: Yes: no symptom reported Musculoskeletal: Yes: no symptom reported Skin: Yes no symptom reported Psychiatric/Neurological: Yes: no symptom reported Endocrine: Yes: no symptom reported Physical Exam General Appearance: no apparent distress Respiratory: decreased breath sounds Heart: S1S2 Abdomen: soft, bowel sounds present Genitourinary: bladder flat Extremities: pulses present Neurology: alert Musculoskeletal: Osteoarthritis Assessment Assessment IMP RIGHT RENAL MASS ACUTE LARGE PULMONARY EMBOLI PROB COPD PER PULMONARY PLAN WILL NEED F/U IMAGING IN FEW MONTHS UNFORTUNATELY EVEN IF IT IS A SOLID TUMOR NOT MUCH I WOULD DO AT THIS TIME DUE TO SEVERITY OF LIFE THREATENING PE AND THIS WILL NEED CONTINUED ANTICOAGULATION WILL FOLLOW SERGEY SÁNCHEZ MD Sep 05, 2019 12:26
[2019-09-05] MEDS ORDERED: DOCUSATE SODIUM 100 MG CAPSULE. PO PRN (13:00)
[2019-09-05] MEDS: ALPRAZolam 1 MG TABLET PO PRN ×2 (13:40→19:16)
--- NOTE | 2019-09-05 13:44 | NUR ---
SS following for discharge planning. SS reviewed pt chart. Pt is from home with family and is currently requiring oxygen. SS will continue to follow for discharge planning.
[2019-09-05 15:00] VITALS: BP 118/63
[2019-09-05] MEDS: cefTRIAXone IV Push 1 GM VIAL. IVP SCH (19:05)
[2019-09-05 19:33] VITALS: BP 121/79
[2019-09-05] MEDS ORDERED: POLYETHYLENE GLYCOL 3350 17 GM PACKET. PO SCH (21:00)
[2019-09-05] MEDS: traZODone 100 MG TABLET. PO SCH (21:21)
[2019-09-05] MEDS: APIXABAN 5 MG TABLET. PO SCH (21:22)
[2019-09-05] MEDS: ATORVASTATIN CALCIUM 40 MG TABLET. PO SCH (21:24)
[2019-09-05 23:35] VITALS: BP 121/69
[2019-09-06 03:01] VITALS: BP 103/55
[2019-09-06 04:57] LABS: HEMOGLOBIN 13.4 g/dL (12.0-15.5); RED BLOOD COUNT 4.4 x10^6/uL (3.50-5.40); RED CELL DISTRIBUTION WIDTH 16.3 % (11.5-14.5); WHITE BLOOD COUNT 10.7 x10^3/uL (4.0-11.0)
[2019-09-06 05:12] LABS: CALCIUM 8.5 mg/dL (8.5-10.1); CREATININE 0.8 mg/dL (0.6-1.0); GFR 71.1; POTASSIUM 4.2 mmol/L (3.5-5.1)
[2019-09-06 06:51] VITALS: BP_SYST 103; BP_SYST 135; BP_DIAS 55; BP_DIAS 72
[2019-09-06] MEDS: IPRATRPIUM/ALBUTEROL 0.5/2.5MG 3 ML NEBU. NEB SCH ×2 (08:04→12:00)
--- NOTE | 2019-09-06 08:19 | PDOC ---
PULMONARY PROGRESS NOTES Subjective PT NOT MORE SOA FEELS LESS SOA Vitals Vital Signs Date Time Temp Pulse Resp B/P (MAP) Pulse Ox O2 Delivery O2 Flow Rate FiO2 09/06/19 08:06 93 Nasal Cannula 5.0 09/06/19 06:51 98.1 55 18 135/72 (93) 98.1 Comments ros as mentioned as above other sys otherwise neg ROS: No Nausea General: Alert, Oriented X4 HEENT: Other (nc at perrl nose throat clear neck no lad no thyromegaly) Lungs: Clear Cardiovascular: S1, S2 Abdomen: Soft, Non-tender, Other (no mass) Neuro Exam: Alert Extremities: No Edema Skin: Warm Labs Laboratory Tests Test 09/05/19 05:00 09/06/19 03:25 Heparin Anti-Xa Act, Unfractionated 0.49 IU/mL (0.30-0.70) Sodium Level 144 mmol/L (136-145) 143 mmol/L (136-145) Potassium Level 4.0 mmol/L (3.5-5.1) 4.2 mmol/L (3.5-5.1) Chloride Level 107 mmol/L (98-107) 108 mmol/L (98-107) Carbon Dioxide Level 30 mmol/L (21-32) 31 mmol/L (21-32) Anion Gap 7 (6-14) 4 (6-14) Blood Urea Nitrogen 16 mg/dL (7-20) 16 mg/dL (7-20) Creatinine 0.9 mg/dL (0.6-1.0) 0.8 mg/dL (0.6-1.0) Estimated GFR (Cockcroft-Gault) 62.1 71.1 Glucose Level 94 mg/dL (70-99) 95 mg/dL (70-99) Calcium Level 8.6 mg/dL (8.5-10.1) 8.5 mg/dL (8.5-10.1) White Blood Count 10.7 x10^3/uL (4.0-11.0) Red Blood Count 4.40 x10^6/uL (3.50-5.40) Hemoglobin 13.4 g/dL (12.0-15.5) Hematocrit 40.0 % (36.0-47.0) Mean Corpuscular Volume 91 fL (79-100) Mean Corpuscular Hemoglobin 30 pg (25-35) Mean Corpuscular Hemoglobin Concent 33 g/dL (31-37) Red Cell Distribution Width 16.3 % (11.5-14.5) Platelet Count 267 x10^3/uL (140-400) Laboratory Tests Test 09/06/19 03:25 White Blood Count 10.7 x10^3/uL (4.0-11.0) Red Blood Count 4.40 x10^6/uL (3.50-5.40) Hemoglobin 13.4 g/dL (12.0-15.5) Hematocrit 40.0 % (36.0-47.0) Mean Corpuscular Volume 91 fL (79-100) Mean Corpuscular Hemoglobin 30 pg (25-35) Mean Corpuscular Hemoglobin Concent 33 g/dL (31-37) Red Cell Distribution Width 16.3 % (11.5-14.5) Platelet Count 267 x10^3/uL (140-400) Sodium Level 143 mmol/L (136-145) Potassium Level 4.2 mmol/L (3.5-5.1) Chloride Level 108 mmol/L (98-107) Carbon Dioxide Level 31 mmol/L (21-32) Anion Gap 4 (6-14) Blood Urea Nitrogen 16 mg/dL (7-20) Creatinine 0.8 mg/dL (0.6-1.0) Estimated GFR (Cockcroft-Gault) 71.1 Glucose Level 95 mg/dL (70-99) Calcium Level 8.5 mg/dL (8.5-10.1) Medications Active Scripts Medications Dose Route/Sig Max Daily Dose Days Date Category Wellbutrin Xl (Bupropion Hcl) 300 Mg Tab.er.24h 1 Tab PO DAILY 09/02/19 Reported Cyclobenzaprine HCl ER (Cyclobenzaprine HCl) 15 Mg Cap.er.24h 10 Mg PO PRN Q6HRS PRN 09/02/19 Reported Vitamin D3 (Cholecalciferol (Vitamin D3)) 1,000 Unit Tablet 1 Tab PO DAILY 03/11/19 Reported Multivitamins (Multivitamin) 1 Each Tablet 1 Tab PO DAILY 03/11/19 Reported Rosuvastatin Calcium 20 Mg Tablet 20 Mg PO HS 03/11/19 Reported Escitalopram Oxalate 10 Mg Tablet 10 Mg PO DAILY 03/11/19 Reported Trazodone Hcl 100 Mg Tablet 100 Mg PO HS 03/11/19 Reported Alprazolam 1 Mg Tablet 1 Mg PO PRN BID PRN 03/11/19 Reported Olmesartan Medoxomil 20 Mg Tablet 20 Mg PO DAILY 03/11/19 Reported Comments le venous doppler neg Impression . IMPRESSION: 1. Acute hypoxic respiratory failure secondary to acute pulmonary embolism. 2. Abnormal CT chest with large pulmonary emboli seen in the right main pulmonary artery, and also followed in the right middle and right lower lobe pulmonary artery as well as left lower lobe pulmonary arteries. There is evidence of some right heart strain. 3. Faint right upper lobe parenchymal scar versus nodule, which needs to be followed up. 4. Abnormal mass seen in the right kidney, which could be concerning for malignancy. 5. 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
[2019-09-06] MEDS: predniSONE 20 MG TABLET PO SCH (08:34)
[2019-09-06] MEDS: CITALOPRAM 20 MG TABLET. PO SCH (08:34)
[2019-09-06] MEDS: buPROPion XL 150 MG TAB.ER.24H. PO SCH (08:34)
[2019-09-06] MEDS: amLODIPine BESYLATE 5 MG TABLET PO SCH (08:34)
[2019-09-06] MEDS: APIXABAN 5 MG TABLET. PO SCH (08:35)
[2019-09-06] MEDS: LACTOBACILLUS RHAMNOSUS GG 1 CAPSULE. PO SCH (08:35)
[2019-09-06 10:26] VITALS: BP 119/74
--- NOTE | 2019-09-06 11:11 | NUR ---
SS following up with discharge planning. Discharge order on the chart for home with self care. Pt needing oxygen transport to home. Pt will discharge today and return to home at 1245 via [facility] transport, [id number]. Pt's RN notified.
[2019-09-06] MEDS: ALPRAZolam 1 MG TABLET PO PRN (11:56)
--- NOTE | 2019-09-06 12:06 | PDOC ---
Renal-Progress Notes Subjective Notes Notes NO NEW COMPLAINTS History of Present Illness Hx of present illness STABLE Vitals Vitals Vital Signs Date Time Temp Pulse Resp B/P (MAP) Pulse Ox O2 Delivery O2 Flow Rate FiO2 09/06/19 11:32 93 Nasal Cannula 4.0 09/06/19 10:26 98.0 74 18 119/74 (89) 98.0 Weight Weight [ ] I.O. Intake and Output Intake and Output 09/06/19 07:00 Intake Total 400 ml Output Total 1275 ml Balance -875 ml Intake Oral 400 ml Output Urine Total 1275 ml Labs Labs Laboratory Tests Test 09/06/19 03:25 White Blood Count 10.7 x10^3/uL (4.0-11.0) Red Blood Count 4.40 x10^6/uL (3.50-5.40) Hemoglobin 13.4 g/dL (12.0-15.5) Hematocrit 40.0 % (36.0-47.0) Mean Corpuscular Volume 91 fL (79-100) Mean Corpuscular Hemoglobin 30 pg (25-35) Mean Corpuscular Hemoglobin Concent 33 g/dL (31-37) Red Cell Distribution Width 16.3 % (11.5-14.5) Platelet Count 267 x10^3/uL (140-400) Sodium Level 143 mmol/L (136-145) Potassium Level 4.2 mmol/L (3.5-5.1) Chloride Level 108 mmol/L (98-107) Carbon Dioxide Level 31 mmol/L (21-32) Anion Gap 4 (6-14) Blood Urea Nitrogen 16 mg/dL (7-20) Creatinine 0.8 mg/dL (0.6-1.0) Estimated GFR (Cockcroft-Gault) 71.1 Glucose Level 95 mg/dL (70-99) Calcium Level 8.5 mg/dL (8.5-10.1) Review of Systems Constitutional: yes: weakness, alert, oriented Ears/Nose/Throat: Yes: no symptom reported Eyes: Yes: no symptom reported Pulmonary: Yes dyspnea Cardiovascular: Yes no symptom reported Gastrointestional: Yes: no symptom reported Genitourinary: Yes: no symptom reported Musculoskeletal: Yes: no symptom reported Skin: Yes no symptom reported Psychiatric/Neurological: Yes: no symptom reported Endocrine: Yes: no symptom reported Physical Exam General Appearance: no apparent distress Respiratory: decreased breath sounds Heart: S1S2 Abdomen: soft, bowel sounds present Genitourinary: bladder flat Extremities: pulses present Neurology: alert Musculoskeletal: Osteoarthritis Assessment Assessment IMP RIGHT RENAL MASS ACUTE LARGE PULMONARY EMBOLI PROB COPD PER PULMONARY PLAN WILL NEED TO HAVE OP UROLOGY FOLLOW UP WILL SIGN OFF D/C PLANS NOTED SERGEY SÁNCHEZ MD Sep 06, 2019 12:06
[2019-09-06] MEDS ORDERED: APIX5TAB PO (12:28)
--- NOTE | 2019-09-06 13:10 | NUR ---
Discharge Note: LEYDA SETH [address] [place] [id number] Discharge instructions and discharge home medications reviewed with Patient and a copy given. All questions have been answered and understanding verbalized. The following instructions and handouts were given: Discontinued IV lines Patient discharged to home with self care via hospital transport
--- NOTE | 2019-09-06 15:01 | DS ---
DATE OF DISCHARGE: HOSPITAL COURSE: The patient is a 69-year-old female patient who was originally admitted directly from the primary care office with a complaint of shortness of breath, cough, which is mostly dry with scanty whitish sputum. Her D-dimer was found to be high; therefore, we did a CT angio of the chest, which showed that she has bilateral pulmonary emboli, more so on the right than left. There were also incidental findings of a mass in the right kidney. She was started on heparin drip and was transferred to [facility] where she was seen by the equipment manager, sap technical developer as well as vessel engineer. She was switched to Eliquis and given the fact that she is anticoagulated, the vessel engineer recommended that she will be seen as an outpatient by urologist. She was seen by the sap technical developer and had an echocardiogram done, which basically showed that the patient has the left ventricular systolic function is normal, ejection fraction was 55-60%, mild left concentric ventricular hypertrophy. The right ventricle is moderately dilated, right ventricular systolic function is borderline reduced. The right atrium is moderately dilated. Doppler and color flow revealed no significant aortic regurgitation, no significant aortic valvular stenosis. Did reveal trace mitral valve regurgitation and revealed mild tricuspid regurgitation. Her pulmonary artery pressure was 44-50 mmHg. As the patient remained hemodynamically stable, a decision was made to discharge her home to continue on Eliquis at 10 mg twice a day for 1 week and then 5 mg twice a day. She was discharged on a tapering course of steroids, cefdinir, to continue with oral antibiotic therapy together with all her other home medications and to follow with her primary care physician. I actually spoke with Joaquina Mejias to arrange for her to be seen by urologist for her possible malignant tumor of the right kidney. PHYSICAL EXAMINATION: GENERAL: When I saw her this morning, she looked well and was clearly in no apparent respiratory distress, pale. There is no pallor, jaundice, cyanosis or thyromegaly. No jugular venous distension. No lower limb edema. VITAL SIGNS: Her heart rate was 55, blood pressure was 135/72, temperature was 98, respiratory rate was 18 and oxygen saturation was 93% on 5 liters of oxygen. HEAD, EYES, EARS, NOSE AND THROAT: Showed normocephalic, atraumatic. NECK: Supple. CARDIAC: Normal first and second heart sounds. No gallop, rub or murmur. CHEST: Clear to auscultation. No crepitation or rhonchi. ABDOMEN: Distended, soft, and nontender. No guarding or rigidity. No organomegaly. All hernial orifices intact. Bowel sounds normal. NEUROLOGIC: She was awake, alert, responding appropriately. All cranial nerves intact. EXTREMITIES: She moves extremities without difficulty. LABORATORY DATA: As of this morning showed a white cell count of 10,700, hemoglobin 13, hematocrit 40, MCV 91, and platelet count 267,000. Her chemistry showed a serum sodium 143, potassium 4.2, chloride 108, bicarbonate 31, anion gap of 4, BUN 16, creatinine 0.8, estimated GFR was 71 mL per minute. Her glucose was 95, calcium was 8.5. DISCHARGE MEDICATIONS: She was discharged home to continue on apixaban 10 mg twice a day for 7 days and then apixaban 5 mg twice a day, Colace 100 mg twice a day, MiraLax 17 grams daily, alprazolam 1 mg every 6 hours as needed, amlodipine besylate 5 mg once a day, atorvastatin calcium 80 mg at bedtime, trazodone 100 mg at bedtime, citalopram hydrobromide 20 mg once a day, Wellbutrin 300 mg daily, cyclobenzaprine 10 mg every 6 hours as needed as well as cefdinir 300 mg twice a day for 6 more days. FINAL DISCHARGE DIAGNOSES: 1. Acute pulmonary embolism, for which she is currently on Eliquis. 2. Chronic obstructive pulmonary disease exacerbation. 3. Other medical problems include: A. Hypertension. B. Hyperlipidemia. C. A mass in her right kidney, that is, enterogenous, concerning for renal cell carcinoma. D. Severe anxiety. TANNA PERALTA MD DR: ROSA M/emilie JOB#: [id number] / [id number]
[2019-09-12] MEDS ORDERED: APIXABAN 5 MG TABLET. PO SCH (21:00)
== END 2019-09-06 13:11 | disposition home or self-care (01) | DRG 175 ==
LOC: 1 WEST ICU 11:57 → 2 SOUTH 09-03 14:51
PROVIDERS: ADMIT Internal Medicine; ATTEND Internal Medicine
DX: I26.99 Other pulmonary embolism without acute cor pulmonale (principal); J96.21 Acute and chronic respiratory failure with hypoxia; I50.31 Acute diastolic (congestive) heart failure; I13.0 Hypertensive heart and chronic kidney disease with heart failure and stage 1 through stage 4 chronic kidney disease, or unspecified chronic kidney disease; J44.1 Chronic obstructive pulmonary disease with (acute) exacerbation; C64.1 Malignant neoplasm of right kidney, except renal pelvis; E78.5 Hyperlipidemia, unspecified; F17.210 Nicotine dependence, cigarettes, uncomplicated; F41.9 Anxiety disorder, unspecified; N18.3 Chronic kidney disease, stage 3 (moderate); N28.89 Other specified disorders of kidney and ureter; Z79.01 Long term (current) use of anticoagulants; Z80.7 Family history of other malignant neoplasms of lymphoid, hematopoietic and related tissues; Z82.49 Family history of ischemic heart disease and other diseases of the circulatory system; Z86.711 Personal history of pulmonary embolism; Z90.711 Acquired absence of uterus with remaining cervical stump; Z96.641 Presence of right artificial hip joint; Z99.81 Dependence on supplemental oxygen; M19.90 Unspecified osteoarthritis, unspecified site; Z79.899 Other long term (current) drug therapy; Z90.49 Acquired absence of other specified parts of digestive tract; Z90.722 Acquired absence of ovaries, bilateral; Z87.81 Personal history of (healed) traumatic fracture; Z71.6 Tobacco abuse counseling
CPT/HCPCS: 36415; 76770; 80048; 80053; 84443; 84484; 85007; 85025; 85027; 85520; 85610; 85730; 93005; 93306; 93970; 94640; 94760; J0696; J1644; J2060; J2920; J7512; G0378

== ENCOUNTER → 2019-12-02 | Outpatient (CLI) | payer MEDICARE ==
[~2019-12-02] MED LIST changes: +APIX5TAB PO; +BUPR300T3 PO; +CYCL15CA20 PO; +IOHEXOL 350 MG/ML 100 ML VIAL. IV ONE; +MULT-445 PO; -MULT1TAB52 PO
[2019-12-02 08:25] LABS: CREATININE 1.2 mg/dL (0.6-1.0); GFR 44.5
--- NOTE | 2019-12-02 10:06 | RAD ---
Study: CT CHEST WITH CONTRAST - PULMONARY ANGIOGRAM History: Chest pain, history of bilateral pulmonary emboli Comparison: CT chest 09/01/2019 Technique: Helical CT of the chest performed after the administration of 75 mL Omnipaque 350 intravenous contrast and timed for angiographic evaluation of the pulmonary arteries per PE protocol. Coronal and sagittal 3D MIP reformations were obtained. One or more of the following individualized dose reduction techniques were utilized for this examination: 1. Automated exposure control 2. Adjustment of the mA and/or kV according to patient size 3. Use of iterative reconstruction technique. Findings: Pulmonary Arteries: Contrast bolus is adequate. Large nonocclusive pulmonary embolism in the right main pulmonary artery extending into at least lobar and segmental pulmonary arteries in the right lower lobe is unchanged to minimally decreased. The thrombus is fairly eccentric in location and has a somewhat chronic appearance. Thrombus at the bifurcation of the left lower lobar pulmonary artery has slightly decreased. The main pulmonary artery is mildly enlarged, unchanged. Heart/Systemic Vasculature: The heart is normal in size. Mild flattening of the interventricular septum and enlargement of the right heart is also unchanged. The thoracic aorta is normal in caliber. There is mild calcified aortic atherosclerosis. Mediastinum and britni: No mediastinal or hilar lymphadenopathy. Lungs: Moderate centrilobular emphysema is unchanged. An irregular pulmonary nodule with a spiculated appearance in the right apex measuring 1 cm is unchanged (image 30, series 3). Two additional 3 mm nodules with associated spiculation in the right upper lobe are also unchanged (image 60 and 72, series 3). Calcified granuloma in the right lower lobe is noted. The airways are clear. No pleural effusion. Neck/Axilla/Body Wall: Visualized portion of the thyroid gland is normal. No axillary lymphadenopathy. Upper Abdomen: Contrast refluxes into the inferior vena cava. Partially visualized probable solid right renal mass measuring at least 4.2 cm in diameter is redemonstrated. Bones: No acute osseous abnormality. IMPRESSION: 1. Unchanged to minimally decreased chronic bilateral pulmonary emboli, overall large clot burden. There is persistent enlargement of the main pulmonary artery, flattening of the intraventricular septum, and asymmetric enlargement of the right heart, which can be seen with right heart strain. 2. Unchanged centrilobular emphysema. 1 cm irregular nodule with spiculation in the right apex and additional 3 mm pulmonary nodules with spiculation in the right upper lobe are unchanged. Recommend follow-up CT at 18-[address] to ensure stability, per Fleischner Society guidelines. 3. Partially visualized suspected solid right renal mass. Recommend CT or MRI adrenal mass protocol to further evaluate for possible malignancy, if not already performed. According to Fleischner Society Guidelines for solid pulmonary nodules (Radiology 2017; 000:1?16): In low risk multiple nodule patient: <6mm - No follow up required. 6-8mm - CT at 6-12 months, then consider CT at 18-24 months >8mm - CT at 6-12 months, then consider CT at 18-24 months Use most suspicious nodule as guide to management. Follow-up intervals may vary according to size and risk In high risk multiple nodule patient: <6mm - Optional 12 month follow up. 6-8mm - CT at 3-6 months, then CT at 18-24 months >8mm - CT at 3-6 months, then CT at 18-24 months Use most suspicious nodule as guide to management. Follow-up intervals may vary according to size and risk Electronically signed by: Jerri Fitzpatrick MD (12/02/2019 10:03 AM) [id number]
== END | disposition home or self-care (01) ==
LOC: CT 07:59
PROVIDERS: ATTEND Internal Medicine Pulmonary Disease
DX: J43.2 Centrilobular emphysema (principal); I70.0 Atherosclerosis of aorta; J84.10 Pulmonary fibrosis, unspecified; R91.8 Other nonspecific abnormal finding of lung field; I26.99 Other pulmonary embolism without acute cor pulmonale
CPT/HCPCS: 36415; 71275; 82565; 84520; Q9967

== ENCOUNTER 2021-04-01 17:48 | Inpatient (IN) | payer MEDICARE ==
[~2021-04-01] VITALS: Ht 170.2 cm; Wt 49.4 kg
[~2021-04-01 17:48] MED LIST changes: -ESCI10TA2 PO; +ESCI10TA90 PO; -IOHEXOL 350 MG/ML 100 ML VIAL. IV ONE
[2021-04-01] MEDS ORDERED: fentaNYL PF VIAL 100 MCG/2 ML VIAL IVP ONE ×2 (18:15→20:00)
[2021-04-01] MEDS ORDERED: IV NORMAL SALINE 500ML BAG 500 ML IV ONE (18:15)
--- NOTE | 2021-04-01 18:19 | ED.ADGEN ---
Past Medical History Smoking Status: Current Every Day Smoker General Adult EDM: Chief Complaint: HIP PAIN HPI: HPI: Patient is a 70 year old female brought in by EMS from home. Patient has had frequent falls and fell at 2 AM, about 18 hours prior to arrival, and stayed on the floor for about 6 hours. Family then was able to help the patient back into bed but she has not been able to get up all day, normally ambulates without assistance. Family had noticed that since 2 AM when she fell she had altered mental status commonly is a GCS 15 at baseline. Patient is on Coumadin for a DVT diagnosed 1 year ago. Complaining in pain in her right hip and thigh. Review of Systems: Review of Systems: All other systems within normal limits except for as noted in the HPI Current Medications: Current Medications Medications (Trade) Dose Ordered Sig/Chanel Start Time Stop Time Status Last Admin Dose Admin Albuterol/ Ipratropium (Combivent Respimat 20-100 Mcg) 1 puff RTQID 04/02/21 08:00 Albuterol/ Ipratropium (Duoneb) 3 ml [id number] 04/01/21 21:00 Cancel Citalopram Hydrobromide (CeleXA) 20 mg DAILY 04/02/21 09:00 Cyclobenzaprine HCl (Flexeril) 10 mg PRN Q6HRS PRN 04/01/21 21:00 Fentanyl Citrate (Fentanyl 2ml Vial) 75 mcg 1X ONCE 04/01/21 20:00 04/01/21 20:07 DC Losartan Potassium (Cozaar) 100 mg DAILY 04/02/21 09:00 Multivitamins (Thera M Plus) 1 tab DAILY 04/02/21 09:00 Propofol (Diprivan) 200 mg 1X ONCE 04/01/21 20:00 04/01/21 20:07 DC Sodium Chloride 1,000 ml @ 100 mls/hr CONT PRN 04/01/21 21:00 Trazodone HCl (Desyrel) 100 mg HS 04/01/21 22:00 Vitamin D (Vitamin D3) 1,000 unit DAILY 04/02/21 09:00 Allergies: Allergies: Allergies Coded Allergies Type Severity Reaction Last Updated Verified No Known Drug Allergies 03/14/19 No Physical Exam: PE: Constitutional: Well developed, well nourished, no acute distress, non-toxic appearance. [] HENT: Normocephalic, right frontal contusion, bilateral external ears normal, nose normal. [] Eyes: PERRLA, conjunctiva normal, no discharge. [] Neck: No rigidity, supple, no stridor. No C-spine [] Cardiovascular: Regular rate and rhythm, brisk cap refill. Symmetric pulses in lower extremities [] Lungs & Thorax: Non labored symmetric respirations, no tachypnea or respiratory distress [] Abdomen: Soft, nondistended, nontender to palpation. Skin: Warm, dry, no erythema, no rash. Scattered areas of ecchymosis on extremities. Most notable on bilateral hands and right foot. [] Back: Unremarkable Extremities: Internal rotation shortening of right leg, tenderness palpation of distal right femur, range of motion grossly intact, no lower extremity edema [] Neurologic: Alert and oriented X 3, no focal deficits noted, answering questions appropriately, sensation intact distal to injury. [] Psychologic: Affect normal, judgement normal, mood normal. [] Current Patient Data: Labs: Laboratory Tests Test 04/01/21 18:55 04/01/21 19:00 White Blood Count 12.5 x10^3/uL (4.0-11.0) H Red Blood Count 5.31 x10^6/uL (3.50-5.40) Hemoglobin 11.3 g/dL (12.0-15.5) L Hematocrit 36.4 % (36.0-47.0) Mean Corpuscular Volume 68 fL (79-100) L Mean Corpuscular Hemoglobin 21 pg (25-35) L Mean Corpuscular Hemoglobin Concent 31 g/dL (31-37) Red Cell Distribution Width 20.6 % (11.5-14.5) H Platelet Count 362 x10^3/uL (140-400) Neutrophils (%) (Auto) 83 % (31-73) H Lymphocytes (%) (Auto) 8 % (24-48) L Monocytes (%) (Auto) 9 % (0-9) Eosinophils (%) (Auto) 0 % (0-3) Basophils (%) (Auto) 1 % (0-3) Neutrophils # (Auto) 10.3 x10^3/uL (1.8-7.7) H Lymphocytes # (Auto) 1.0 x10^3/uL (1.0-4.8) Monocytes # (Auto) 1.2 x10^3/uL (0.0-1.1) H Eosinophils # (Auto) 0.0 x10^3/uL (0.0-0.7) Basophils # (Auto) 0.1 x10^3/uL (0.0-0.2) Platelet Estimate Adequate (ADEQUATE) Polychromasia Slight Hypochromasia Mod Poikilocytosis Slight Anisocytosis Mod Microcytosis Marked Target Cells Occ Ovalocytes Few Helmet Cells Occ Schistocytes Occ Prothrombin Time 53.7 SEC (11.7-14.0) H Prothrombin Time INR 6.3 (0.8-1.1) *H Sodium Level 138 mmol/L (136-145) Potassium Level 4.5 mmol/L (3.5-5.1) Chloride Level 103 mmol/L (98-107) Carbon Dioxide Level 26 mmol/L (21-32) Anion Gap 9 (6-14) Blood Urea Nitrogen 31 mg/dL (7-20) H Creatinine 1.7 mg/dL (0.6-1.0) H Estimated GFR (Cockcroft-Gault) 29.7 BUN/Creatinine Ratio 18 (6-20) Glucose Level 99 mg/dL (70-99) Lactic Acid Level 1.2 mmol/L (0.4-2.0) Calcium Level 8.8 mg/dL (8.5-10.1) Phosphorus Level 4.5 mg/dL (2.6-4.7) Magnesium Level 2.2 mg/dL (1.8-2.4) Total Bilirubin 0.4 mg/dL (0.2-1.0) Aspartate Amino Transferase (AST) 127 U/L (15-37) H Alanine Aminotransferase (ALT) 50 U/L (14-59) Alkaline Phosphatase 113 U/L (46-116) Creatine Kinase 4246 U/L (26-192) H Myoglobin 3434 ng/mL (9-82) H Troponin I Quantitative 0.540 ng/mL (0.000-0.055) GG-Cvf-Q-Type Natriuretic Peptide 99023 pg/mL (0-124) H Total Protein 7.2 g/dL (6.4-8.2) Albumin 3.4 g/dL (3.4-5.0) Albumin/Globulin Ratio 0.9 (1.0-1.7) L SARS-CoV-2 Antigen (Rapid) Negative (NEGATIVE) Urine Collection Type Unknown Urine Color Yellow Urine Clarity Clear Urine pH 5.5 (<5.0-8.0) Urine Specific Carlton 1.020 (1.000-1.030) Urine Protein Negative mg/dL (NEG-TRACE) Urine Glucose (UA) Negative mg/dL (NEG) Urine Ketones (Stick) Negative mg/dL (NEG) Urine Blood Moderate (NEG) Urine Nitrite Negative (NEG) Urine Bilirubin Negative (NEG) Urine Urobilinogen Dipstick 0.2 mg/dL (0.2 mg/dL) Urine Leukocyte Esterase Negative (NEG) Urine RBC Rare /HPF (0-2) Urine WBC Rare /HPF (0-4) Urine Squamous Epithelial Cells Few /LPF Urine Bacteria 0 /HPF (0-FEW) Urine Mucus Slight /LPF Laboratory Tests 04/01/21 18:55 Laboratory Tests 04/01/21 18:55 Vital Signs: Vital Signs Date Time Temp Pulse Resp B/P (MAP) Pulse Ox O2 Delivery O2 Flow Rate FiO2 04/01/21 20:30 78 20 203/138 3.0 15.0 15.0 15.0 15.0 04/01/21 19:21 95 Nasal Cannula 04/01/21 18:07 98.8 98.8 EKG: EKG: Sinus rhythm, heart rate 86 bpm, normal axis, no ST elevation depression, no ectopy. [] Heart Score: C/O Chest Pain: No HEART Score for Chest Pain: HEART Score for Chest Pain Response (Comments) Value History Slighlty/Non-Suspicious 0 ECG Nonspecific Repolarizatio 1 Age > 65 2 Risk Factors >3 Risk Factors or Hx CAD 2 Troponin >3 x Normal Limit 2 Total 7 Risk Factors: Risk Factors: DM, Current or recent (<one month) smoker, HTN, HLP, family history of CAD, obesity. Risk Scores: Score 0 - 3: 2.5% MACE over next 6 weeks - Discharge Home Score 4 - 6: 20.3% MACE over next 6 weeks - Admit for Clinical Observation Score 7 - 10: 72.7% MACE over next 6 weeks - Early Invasive Strategies Radiology/Procedures: Radiology/Procedures: [facility] [address] [place] [address] IMAGING REPORT Signed PATIENT: LEYDA SETH EACCOUNT: [id number] : 1950 LOCATION: ER AGE: 70 SEX: F EXAM STATUS: PRE ER ORD. PHYSICIAN: HAILEE HERNANDEZ MD REASON: Trauma, mechanical fall PROCEDURE: CHEST AP ONLY Exam: Chest one view INDICATION: Trauma TECHNIQUE: Frontal view of the chest Comparisons: None FINDINGS: The cardiomediastinal silhouette and pulmonary vessels are within normal limits. The lung and pleural spaces are clear. Question mildly displaced right posterior third and fourth rib fractures. Small left pleural effusion IMPRESSION: 1. Question mildly displaced posterior right third and fourth rib fractures. 2. Small left pleural effusion Electronically signed by: Bruce Maldonado MD (04/01/2021 7:38 PM) [facility] DICTATED and SIGNED BY: BRUCE MALDONADO MD DATE: 04/01/21 [id number] 0 [][facility] [address] [facility] [place] [address] IMAGING REPORT Signed PATIENT: LEYDA SETH EACCOUNT: [id number] : 1950 LOCATION: ER AGE: 70 SEX: F EXAM STATUS: PRE ER ORD. PHYSICIAN: HAILEE HERNANDEZ MD REASON: fall, on coumadin PROCEDURE: CT HEAD AND CERVICAL SPINE WO CT scan of the head without contrast 04/01/2021 Clinical History: Fall with head injury. Technique: Unenhanced, contiguous, 5 mm axial sections were obtained through the head. One or more of the following individualized dose reduction techniques were ut ilized for this study: 1. Automated exposure control. 2. Adjustment of the mA and/or kV according to patient size. 3. Use of iterative reconstruction technique. Findings: There is generalized parenchymal atrophy. Areas of decreased attenuation are seen within the periventricular and subcortical white matter of both cerebral hemispheres consistent with areas of small vessel ischemic disease. An old area of lacunar infarction seen involving the left centrum semiovale. As measures 7 mm in size. An area encephalomalacia seen involving the left frontal parietal lobe No acute parenchymal abnormality is seen. No extra- axial fluid collection is noted. No skull fracture is seen. Impression: No acute intracranial abnormality is seen. CT scan of the cervical spine without contrast 04/01/2021 Clinical history: Fall with neck injury. Technique: Unenhanced, contiguous, 0.625 mm axial sections were obtained through the cervical spine. 3 mm reconstructed axial and 3 mm coronal and sagittal r econstructed images were obtained. One or more of the following individualized dose reduction techniques were utilized for this study: 1. Automated exposure control. 2. Adjustment of the mA and/or kV according to patient size. 3. Use of iterative reconstruction technique. Findings: There is straightening of the normal cervical lordosis. Degenerative changes consisting of varying degrees of disc space narrowing, vertebral endplate sclerosis and mild to moderate anterior and posterior vertebral body osteophyte formation are seen throughout the cervical disc spaces. Incomplete segmentation is seen involving the C7 and T1 vertebral bodies. No fracture or subluxation cervical vertebrae seen. Degenerative changes are seen involving the uncovertebral and facet joints throughout the cervical disc spaces. Impression: No fracture or subluxation of the cervical vertebra is identified. Electronically signed by: Dmitriy Jeter MD (04/01/2021 6:55 PM) [id number] DICTATED and SIGNED BY: DMITRIY JETER MD DATE: 04/01/21 [id number] [facility] [address] [place] [address] IMAGING REPORT Signed PATIENT: LEYDA SETH EACCOUNT: [id number] : 1950 LOCATION: ER AGE: 70 SEX: F EXAM STATUS: PRE ER ORD. PHYSICIAN: HAILEE HERNANDEZ MD REASON: Trauma, mechanical fall PROCEDURE: HIP RIGHT 2V WITH PELVIS Exam: Pelvis 2 views, right femur 2 views INDICATION: Trauma, mechanical fall TECHNIQUE: Frontal view of the pelvis with frontal and frog-leg lateral views the right hip. Frontal and lateral views of the right femur Comparisons: None FINDINGS: Pelvis: Diffuse osteopenia. There is a right hip arthroplasty with cerclage wires at the proximal femur. Dislocation of the femoral head component to the acetabular component. There is severe degenerative changes at the left hip. No displaced fractures are identified. Femur: Diffuse osteopenia. No other fractures are seen. Soft tissues are unremarkable. IMPRESSION: 1. Dislocation of the right hip arthroplasties described above. 2. No acute fracture at the right femur. Electronically signed by: Bruce Maldonado MD (04/01/2021 7:42 PM) [facility] DICTATED and SIGNED BY: BRUCE MALDONADO MD DATE: 04/01/[id number] 0 [facility] [address] [place] [address] IMAGING REPORT Signed PATIENT: LEYDA SETH EACCOUNT: [id number] : 1950 LOCATION: ER AGE: 70 SEX: F EXAM STATUS: PRE ER ORD. PHYSICIAN: HAILEE HERNANDEZ MD REASON: Trauma, mechanical fall PROCEDURE: FOOT RIGHT 2V Exam: Right foot 2 views INDICATION: Trauma TECHNIQUE: Frontal and lateral views of the right foot Comparisons: None FINDINGS: Bone mineralization is normal. No acute or healed fractures. Soft tissues are unremarkable. Joint spaces are well-maintained IMPRESSION: No acute osseous abnormality of the right foot. Electronically signed by: Bruce Maldonado MD (04/01/2021 7:39 PM) [facility] DICTATED and SIGNED BY: BRUCE MALDONADO MD DATE: 04/01/[id number] 0 [facility] [address] [place] [address] IMAGING REPORT Signed PATIENT: LEYDA SETH EACCOUNT: [id number] : 1950 LOCATION: ER AGE: 70 SEX: F EXAM STATUS: PRE ER ORD. PHYSICIAN: HAILEE HERNANDEZ MD REASON: Trauma, mechanical fall PROCEDURE: HAND LEFT 2V Exam: Left hand 2 views INDICATION: Trauma, mechanical fall TECHNIQUE: Frontal and lateral views the left hand Comparisons: None FINDINGS: Deformity at the distal radius, likely secondary to chronic fracture. An acute fracture is not definitively identified. There is mild soft tissue swelling surrounding the wrist. Diffuse osteopenia. IMPRESSION: Deformity at the left wrist favored to be sequela of chronic fracture. No acute fracture is seen in the setting of diffuse osteopenia which limits the evaluation. Electronically signed by: Bruce Maldonado MD (04/01/2021 7:40 PM) [facility] DICTATED and SIGNED BY: BRUCE MALDONADO MD DATE: 04/01/21 [id number] Impression: Attempted closed reduction of right hip after contacting Ortho. Orthopedic physician Dr. Greene requested that we try in the emergency department. Contacted anesthesia for assistance with sedation so I could focus on the reduction, see their notes for sedation details. Attempted reduction of right hip 5 times with various techniques unsuccessful. Was some movement of the attempts but follow-up x-ray did not show reduction of the right hip. Orthopedic surgeon consulted, Dr. Greene will come to ED to attempt procedure with anesthesia. Successful reduction by orthopedics after several attempts. Confirmed with x-ray Course & Med Decision Making: Course & Med Decision Making Pertinent Labs and Imaging studies reviewed. (See chart for details) [] Dragon Disclaimer: Dragon Disclaimer: This electronic medical record was generated, in whole or in part, using a voice recognition dictation system. Departure Departure Impression: Primary Impression: Displacement of internal right hip prosthesis Additional Impressions: Supratherapeutic international normalized ratio (INR) Falls AMS (altered mental status) Disposition: ADMITTED INPATIENT Condition: STABLE Referrals: FINN FATIMA (PCP) Problem Qualifiers HAILEE HERNANDEZ MD Apr 01, 2021 18:19
--- NOTE | 2021-04-01 18:58 | RAD ---
CT scan of the head without contrast 04/01/2021 Clinical History: Fall with head injury. Technique: Unenhanced, contiguous, 5 mm axial sections were obtained through the head. One or more of the following individualized dose reduction techniques were utilized for this study: 1. Automated exposure control. 2. Adjustment of the mA and/or kV according to patient size. 3. Use of iterative reconstruction technique. Findings: There is generalized parenchymal atrophy. Areas of decreased attenuation are seen within t he periventricular and subcortical white matter of both cerebral hemispheres consistent with areas of small vessel ischemic disease. An old area of lacunar infarction seen involving the left centrum melissa iovale. As measures 7 mm in size. An area encephalomalacia seen involving the left frontal parietal l obe No acute parenchymal abnormality is seen. No extra-axial fluid collection is noted. No skull frac ture is seen. Impression: No acute intracranial abnormality is seen. CT scan of the cervical spine without contrast 04/01/2021 Clinical history: Fall with neck injury. Technique: Unenhanced, contiguous, 0.625 mm axial sections were obtained through the cervical spine. 3 mm reconstructed axial and 3 mm coronal and sagittal reconstructed images were obtained. One or more of the following individualized dose reduction techniques were utilized for this study: 1. Automated exposure control. 2. Adjustment of the mA and/or kV according to patient size. 3. Use of iterative reconstruction technique. Findings: There is straightening of the normal cervical lordosis. Degenerative changes consisting of varying degrees of disc space narrowing, vertebral endplate sclerosis and mild to moderate anterior a nd posterior vertebral body osteophyte formation are seen throughout the cervical disc spaces. Incomp lete segmentation is seen involving the C7 and T1 vertebral bodies. No fracture or subluxation cervical vertebrae seen. Degenerative changes are seen involving the uncov ertebral and facet joints throughout the cervical disc spaces. Impression: No fracture or subluxation of the cervical vertebra is identified. Electronically signed by: Dmitriy Jeter MD (04/01/2021 6:55 PM) [id number]
[2021-04-01 19:08] LABS: BASO # 0.1 x10^3/uL (0.0-0.2); BASO % 1 % (0-3); EOS % 0 % (0-3); HEMATOCRIT 36.4 % (36.0-47.0); HEMOGLOBIN 11.3 g/dL (12.0-15.5); LYMPH % 8 % (24-48); MEAN CORPUSCULAR HEMOGLOBIN 21 pg (25-35); MEAN CORPUSCULAR HGB CONC 31 g/dL (31-37); MEAN CORPUSCULAR VOLUME 68 fL (79-100); MONO # 1.2 x10^3/uL (0.0-1.1); MONO % 9 % (0-9); NEUT # 10.3 x10^3/uL (1.8-7.7); NEUT % 83 % (31-73); PLATELET COUNT 362 x10^3/uL (140-400); RED BLOOD COUNT 5.31 x10^6/uL (3.50-5.40); RED CELL DISTRIBUTION WIDTH 20.6 % (11.5-14.5); WHITE BLOOD COUNT 12.5 x10^3/uL (4.0-11.0)
[2021-04-01 19:13] LABS: BILIRUBIN,URINE NEGATIVE (NEG); CLARITY,URINE CLEAR; COLOR,URINE YELLOW; NITRITE,URINE NEGATIVE (NEG); PH,URINE 5.5 (<5.0-8.0); PROTEIN,URINE NEGATIVE (NEG-TRACE); UROBILINOGEN,URINE 0.2 mg/dL (0.2 mg/dL)
[2021-04-01 19:16] LABS: PROTHROMBIN TIME PATIENT 53.7 SEC (11.7-14.0)
[2021-04-01 19:22] LABS: BACTERIA,URINE 0 /HPF (0-FEW); RBC,URINE RARE /HPF (0-2); WBC,URINE RARE /HPF (0-4)
--- NOTE | 2021-04-01 19:41 | RAD ---
Exam: Chest one view INDICATION: Trauma TECHNIQUE: Frontal view of the chest Comparisons: None FINDINGS: The cardiomediastinal silhouette and pulmonary vessels are within normal limits. The lung and pleural spaces are clear. Question mildly displaced right posterior third and fourth rib fractures. Small left pleural effusion IMPRESSION: 1. Question mildly displaced posterior right third and fourth rib fractures. 2. Small left pleural effusion Electronically signed by: Bruce Bianchi MD (04/01/2021 7:38 PM) [facility]
--- NOTE | 2021-04-01 19:42 | RAD ---
Exam: Right foot 2 views INDICATION: Trauma TECHNIQUE: Frontal and lateral views of the right foot Comparisons: None FINDINGS: Bone mineralization is normal. No acute or healed fractures. Soft tissues are unremarkable. Joint spa ivelisse are well-maintained IMPRESSION: No acute osseous abnormality of the right foot. Electronically signed by: Bruce Bianchi MD (04/01/2021 7:39 PM) [facility]
--- NOTE | 2021-04-01 19:43 | RAD ---
Exam: Left hand 2 views INDICATION: Trauma, mechanical fall TECHNIQUE: Frontal and lateral views the left hand Comparisons: None FINDINGS: Deformity at the distal radius, likely secondary to chronic fracture. An acute fracture is not defini tively identified. There is mild soft tissue swelling surrounding the wrist. Diffuse osteopenia. IMPRESSION: Deformity at the left wrist favored to be sequela of chronic fracture. No acute fracture is seen in t he setting of diffuse osteopenia which limits the evaluation. Electronically signed by: Bruce Bianchi MD (04/01/2021 7:40 PM) [facility]
--- NOTE | 2021-04-01 19:45 | RAD ---
Exam: Pelvis 2 views, right femur 2 views INDICATION: Trauma, mechanical fall TECHNIQUE: Frontal view of the pelvis with frontal and frog-leg lateral views the right hip. Frontal and lateral views of the right femur Comparisons: None FINDINGS: Pelvis: Diffuse osteopenia. There is a right hip arthroplasty with cerclage wires at the proximal femur. Disl ocation of the femoral head component to the acetabular component. There is severe degenerative monroe es at the left hip. No displaced fractures are identified. Femur: Diffuse osteopenia. No other fractures are seen. Soft tissues are unremarkable. IMPRESSION: 1. Dislocation of the right hip arthroplasties described above. 2. No acute fracture at the right femur. Electronically signed by: Bruce Bianchi MD (04/01/2021 7:42 PM) [facility]
[2021-04-01 19:51] LABS: ANISOCYTOSIS MOD; HYPOCHROMIA MOD; PLT ESTIMATE ADEQUATE (ADEQUATE); POIKILOCYTOSIS SLIGHT
[2021-04-01 19:52] LABS: MICROCYTOSIS MARKED; OVALOCYTES FEW; POLYCHROMASIA SLIGHT; TARGET CELLS OCC
[2021-04-01 19:53] LABS: HELMET CELLS OCC; SCHISTOCYTES OCC
[2021-04-01] MEDS ORDERED: PROPOFOL 10 MG/ML (20ML) VIAL. IV ONE ×3 (20:00→22:00)
[2021-04-01 20:05] LABS: ALBUMIN 3.4 g/dL (3.4-5.0); ALBUMIN/GLOBULIN RATIO 0.9 (1.0-1.7); CALCIUM 8.8 mg/dL (8.5-10.1); CREATININE 1.7 mg/dL (0.6-1.0); GFR 29.7; MAGNESIUM 2.2 mg/dL (1.8-2.4); PHOSPHORUS 4.5 mg/dL (2.6-4.7); POTASSIUM 4.5 mmol/L (3.5-5.1); TOTAL BILIRUBIN 0.4 mg/dL (0.2-1.0); TOTAL PROTEIN 7.2 g/dL (6.4-8.2)
[2021-04-01 20:30] VITALS: BP 203/138
--- NOTE | 2021-04-01 20:55 | EKG ---
[facility] [address] [place] [address] Test Date: 2021-04-01 Test Time: 19:23:47 Pat Name: LEYDA SETH Department: Room: Gender: F Security Intelligence Analyst: : 1950 Requested By: HAILEE HERNANDEZ Order Number: [id number] Reading MD: Ariel Cartagena MD Measurements Intervals [place] Rate: 86 P: 86 NH: 154 QRS: 83 QRSD: 96 T: 62 QT: 384 QTc: 463 Interpretive Statements SINUS RHYTHM Electronically Signed On 04-08-2021 11:56:20 CDT by Ariel Cartagena MD
[2021-04-01] MEDS ORDERED: IPRATRPIUM/ALBUTEROL 0.5/2.5MG 3 ML NEBU. NEB SCH (21:00)
[2021-04-01] MEDS ORDERED: SUCCINYLCHOLINE 200 MG/10 ML VIAL. ONE (21:00)
[2021-04-01] MEDS ORDERED: IV NORMAL SALINE 1000ML BAG 1,000 ML IV PRN (21:00)
--- NOTE | 2021-04-01 21:05 | PDOC1 ---
History and Physical Date of Admission Date of Admission DATE: 04/01/21 TIME: 21:05 Source Source: Caregiver, Chart review, Patient History of Present Illness History of Present Illness MS. alfaro, is a 70 year old female with acute hip pain, She has been falling, more freq falls, and had been down for 6 or 8 hours Then could not stand, and could not get upnormally ambulates without assistance. body survey Xrays taken, hip showed acute Dislocation of the right hip arthroplasties Patient is on Coumadin for a DVT diagnosed 1 year ago. Complaining in pain in her right hip and thigh. Past Medical History Cardiovascular: HTN, Hyperlipidemia Pulmonary: COPD CENTRAL NERVOUS SYSTEM: Other GI: No pertinent hx Heme/Onc: No pertinent hx Hepatobiliary: No pertinent hx Psych: Anxiety Musculoskeletal: Osteoarthritis Rheumatologic: No pertinent hx Infectious disease: No pertinent hx Renal/: No pertinent hx Endocrine: No pertinent hx Past Surgical History Past Surgical History: Arthroscopy, Total hip replacement, Tonsillectomy, Hysterectomy, Other Family History Family History: Coronary Artery Disease, Other Social History Smoke: <1 pack per day ALCOHOL: none Drugs: None Current Medications Current Medications Current Medications Fentanyl Citrate (Fentanyl 2ml Vial) 25 mcg 1X ONCE IVP Last administered on 04/01/21at 19:21; Start 04/01/21 at 18:15; Stop 04/01/21 at 18:16; Status DC Sodium Chloride 500 ml @ 500 mls/hr 1X ONCE IV Last administered on 04/01/21at 19:22; Start 04/01/21 at 18:15; Stop 04/01/21 at 19:14; Status DC Fentanyl Citrate (Fentanyl 2ml Vial) 75 mcg 1X ONCE IVP ; Start 04/01/21 at 20:00; Stop 04/01/21 at 20:07; Status DC Propofol (Diprivan) 200 mg 1X ONCE IV ; Start 04/01/21 at 20:00; Stop 04/01/21 at 20:07; Status DC Vitamin D (Vitamin D3) 1,000 unit DAILY PO ; Start 04/02/21 at 09:00 Trazodone HCl (Desyrel) 100 mg HS PO ; Start 04/01/21 at 22:00 Cyclobenzaprine HCl (Flexeril) 10 mg PRN Q6HRS PRN PO MUSCLE SPASMS; Start 04/01/21 at 21:00 Citalopram Hydrobromide (CeleXA) 20 mg DAILY PO ; Start 04/02/21 at 09:00 Multivitamins (Thera M Plus) 1 tab DAILY PO ; Start 04/02/21 at 09:00 Losartan Potassium (Cozaar) 100 mg DAILY PO ; Start 04/02/21 at 09:00 Sodium Chloride 1,000 ml @ 100 mls/hr CONT PRN IV SEE I/O RECORD; Start 04/01/21 at 21:00 Active Scripts Active Reported Eliquis (Apixaban) 5 Mg Tablet 10 Mg PO BID 7 Days Wellbutrin Xl (Bupropion Hcl) 300 Mg Tab.er.24h 1 Tab PO DAILY Cyclobenzaprine HCl ER (Cyclobenzaprine HCl) 15 Mg Cap.er.24h 10 Mg PO PRN Q6HRS PRN Vitamin D3 (Cholecalciferol (Vitamin D3)) 1,000 Unit Tablet 1 Tab PO DAILY Multivitamins (Multivitamin) 1 Each Tablet 1 Tab PO DAILY Rosuvastatin Calcium 20 Mg Tablet 20 Mg PO HS Escitalopram Oxalate 10 Mg Tablet 10 Mg PO DAILY Trazodone Hcl 100 Mg Tablet 100 Mg PO HS Olmesartan Medoxomil 20 Mg Tablet 20 Mg PO DAILY Allergies Allergies: Coded Allergies: No Known Drug Allergies (Unverified , 03/14/19) ROS Review of System + confusion General: No: Chills, Night Sweats, Fatigue, Malaise, Appetite, Other PSYCHOLOGICAL ROS: No: Anxiety, Behavioral Disorder, Concentration difficultie, Decreased libido, Depression, Disorientation, Hallucinations, Hostility, Irritab lity, Memory difficulties, Mood Swings, Obsessive thoughts, Physical abuse, Sexual abuse, Sleep disturbances, Suicidal ideation, Other Eyes: No Blurry vision, No Decreased vision, No Double vision, No Dry eyes, No Excessive tearing, No Eye Pain, No Itchy Eyes, No Loss of vision, No Photophobia, No Scotomata, No Uses contacts, No Uses glasses, No Other HEENT: No: Heacaches, Visual Changes, Hearing change, Nasal congestion, Nasal discharge, Oral lesions, Sinus pain, Sore Throat, Epistaxis, Sneezing, Snoring, Tinnitus, Vertigo, Vocal changes, Other Breast: No New/Changing Breast Lumps, No Nipple changes, No Nipple discharge, No Other Respiratory: No: Cough, Hemoptysis, Orthopnea, Pleuritic Pain, Shortness of breath, SOB with excertion, Sputum Changes, Stridor, Tachypnea, Wheezing, Other Cardiovascular: No Chest Pain, No Palpitations, No Orthopnea, No Paroxysmal Noc. Dyspnea, No Edema, No Lt Headedness, No Other Gastrointestinal: No Nausea, No Vomiting, No Abdominal Pain, No Diarrhea, No Constipation, No Melena, No Hematochezia, No Other Genitourinary: No Dysuria, No Frequency, No Incontinence, No Hematuria, No R etention, No Discharge, No Urgency, No Pain, No Flank Pain, No Other, No , No , No , No , No , No , No Musculoskeletal: Yes Gait Disturbance, Yes Joint Pain, Yes Joint Stiffness; No Joint Swelling, No Muscle Pain, No Muscular Weakness, No Pain In:, No Swelling In:, No Other Neurological: Yes Dizziness, Yes Gait Disturbance; No Behavorial Changes, No Bowel/Bladder ControlChng, No Confusion, No Headaches, No Impaired Coord/balance, No Memory Loss, No Numbness/Tingling, No Seizures, No Speech Problems, No Tremors, No Visual Changes, No Weakness, No Other Skin: No Dry Skin, No Eczema, No Hair Changes, No Lumps, No Mole Changes, No Mottling, No Nail Changes, No Pruritus, No Rash, No Skin Lesion Changes, No Other, No Acne Physical Exam General: Alert, moderate distress HEENT: Atraumatic, PERRLA Lungs: Normal air movement Heart: no gallops, no murmurs, irregularly irregular Breasts: Normal Abdomen: Normal bowel sounds, Soft Rectal Exam: not examined Extremities: No clubbing, Normal pulses Skin: Other (dry flaky skin, poor nail care, ) Neuro: Normal speech, Normal tone, Sensation intact Psych/Mental Status: Mood NL Vitals Vitals Vital Signs Date Time Temp Pulse Resp B/P (MAP) Pulse Ox O2 Delivery O2 Flow Rate FiO2 04/01/21 19:21 20 95 Nasal Cannula 3.0 04/01/21 18:07 98.8 84 146/96 (113) 98.8 Labs Labs Laboratory Tests Test 04/01/21 18:55 04/01/21 19:00 White Blood Count 12.5 x10^3/uL (4.0-11.0) Red Blood Count 5.31 x10^6/uL (3.50-5.40) Hemoglobin 11.3 g/dL (12.0-15.5) Hematocrit 36.4 % (36.0-47.0) Mean Corpuscular Volume 68 fL (79-100) Mean Corpuscular Hemoglobin 21 pg (25-35) Mean Corpuscular Hemoglobin Concent 31 g/dL (31-37) Red Cell Distribution Width 20.6 % (11.5-14.5) Platelet Count 362 x10^3/uL (140-400) Neutrophils (%) (Auto) 83 % (31-73) Lymphocytes (%) (Auto) 8 % (24-48) Monocytes (%) (Auto) 9 % (0-9) Eosinophils (%) (Auto) 0 % (0-3) Basophils (%) (Auto) 1 % (0-3) Neutrophils # (Auto) 10.3 x10^3/uL (1.8-7.7) Lymphocytes # (Auto) 1.0 x10^3/uL (1.0-4.8) Monocytes # (Auto) 1.2 x10^3/uL (0.0-1.1) Eosinophils # (Auto) 0.0 x10^3/uL (0.0-0.7) Basophils # (Auto) 0.1 x10^3/uL (0.0-0.2) Platelet Estimate Adequate (ADEQUATE) Polychromasia Slight Hypochromasia Mod Poikilocytosis Slight Anisocytosis Mod Microcytosis Marked Target Cells Occ Ovalocytes Few Helmet Cells Occ Schistocytes Occ Prothrombin Time 53.7 SEC (11.7-14.0) Prothromb Time International Ratio 6.3 (0.8-1.1) Sodium Level 138 mmol/L (136-145) Potassium Level 4.5 mmol/L (3.5-5.1) Chloride Level 103 mmol/L (98-107) Carbon Dioxide Level 26 mmol/L (21-32) Anion Gap 9 (6-14) Blood Urea Nitrogen 31 mg/dL (7-20) Creatinine 1.7 mg/dL (0.6-1.0) Estimated GFR (Cockcroft-Gault) 29.7 BUN/Creatinine Ratio 18 (6-20) Glucose Level 99 mg/dL (70-99) Lactic Acid Level 1.2 mmol/L (0.4-2.0) Calcium Level 8.8 mg/dL (8.5-10.1) Phosphorus Level 4.5 mg/dL (2.6-4.7) Magnesium Level 2.2 mg/dL (1.8-2.4) Total Bilirubin 0.4 mg/dL (0.2-1.0) Aspartate Amino Transf (AST/SGOT) 127 U/L (15-37) Alanine Aminotransferase (ALT/SGPT) 50 U/L (14-59) Alkaline Phosphatase 113 U/L (46-116) Creatine Kinase 4246 U/L (26-192) Myoglobin 3434 ng/mL (9-82) Troponin I Quantitative 0.540 ng/mL (0.000-0.055) FY-Gsn-S-Type Natriuretic Peptide 32401 pg/mL (0-124) Total Protein 7.2 g/dL (6.4-8.2) Albumin 3.4 g/dL (3.4-5.0) Albumin/Globulin Ratio 0.9 (1.0-1.7) SARS-CoV-2 Antigen (Rapid) Negative (NEGATIVE) Urine Collection Type Unknown Urine Color Yellow Urine Clarity Clear Urine pH 5.5 (<5.0-8.0) Urine Specific [place] 1.020 (1.000-1.030) Urine Protein Negative mg/dL (NEG-TRACE) Urine Glucose (UA) Negative mg/dL (NEG) Urine Ketones (Stick) Negative mg/dL (NEG) Urine Blood Moderate (NEG) Urine Nitrite Negative (NEG) Urine Bilirubin Negative (NEG) Urine Urobilinogen Dipstick 0.2 mg/dL (0.2 mg/dL) Urine Leukocyte Esterase Negative (NEG) Urine RBC Rare /HPF (0-2) Urine WBC Rare /HPF (0-4) Urine Squamous Epithelial Cells Few /LPF Urine Bacteria 0 /HPF (0-FEW) Urine Mucus Slight /LPF Laboratory Tests Test 04/01/21 18:55 04/01/21 19:00 White Blood Count 12.5 x10^3/uL (4.0-11.0) Red Blood Count 5.31 x10^6/uL (3.50-5.40) Hemoglobin 11.3 g/dL (12.0-15.5) Hematocrit 36.4 % (36.0-47.0) Mean Corpuscular Volume 68 fL (79-100) Mean Corpuscular Hemoglobin 21 pg (25-35) Mean Corpuscular Hemoglobin Concent 31 g/dL (31-37) Red Cell Distribution Width 20.6 % (11.5-14.5) Platelet Count 362 x10^3/uL (140-400) Neutrophils (%) (Auto) 83 % (31-73) Lymphocytes (%) (Auto) 8 % (24-48) Monocytes (%) (Auto) 9 % (0-9) Eosinophils (%) (Auto) 0 % (0-3) Basophils (%) (Auto) 1 % (0-3) Neutrophils # (Auto) 10.3 x10^3/uL (1.8-7.7) Lymphocytes # (Auto) 1.0 x10^3/uL (1.0-4.8) Monocytes # (Auto) 1.2 x10^3/uL (0.0-1.1) Eosinophils # (Auto) 0.0 x10^3/uL (0.0-0.7) Basophils # (Auto) 0.1 x10^3/uL (0.0-0.2) Platelet Estimate Adequate (ADEQUATE) Polychromasia Slight Hypochromasia Mod Poikilocytosis Slight Anisocytosis Mod Microcytosis Marked Target Cells Occ Ovalocytes Few Helmet Cells Occ Schistocytes Occ Prothrombin Time 53.7 SEC (11.7-14.0) Prothromb Time International Ratio 6.3 (0.8-1.1) Sodium Level 138 mmol/L (136-145) Potassium Level 4.5 mmol/L (3.5-5.1) Chloride Level 103 mmol/L (98-107) Carbon Dioxide Level 26 mmol/L (21-32) Anion Gap 9 (6-14) Blood Urea Nitrogen 31 mg/dL (7-20) Creatinine 1.7 mg/dL (0.6-1.0) Estimated GFR (Cockcroft-Gault) 29.7 BUN/Creatinine Ratio 18 (6-20) Glucose Level 99 mg/dL (70-99) Lactic Acid Level 1.2 mmol/L (0.4-2.0) Calcium Level 8.8 mg/dL (8.5-10.1) Phosphorus Level 4.5 mg/dL (2.6-4.7) Magnesium Level 2.2 mg/dL (1.8-2.4) Total Bilirubin 0.4 mg/dL (0.2-1.0) Aspartate Amino Transf (AST/SGOT) 127 U/L (15-37) Alanine Aminotransferase (ALT/SGPT) 50 U/L (14-59) Alkaline Phosphatase 113 U/L (46-116) Creatine Kinase 4246 U/L (26-192) Myoglobin 3434 ng/mL (9-82) Troponin I Quantitative 0.540 ng/mL (0.000-0.055) UW-Xms-A-Type Natriuretic Peptide 82363 pg/mL (0-124) Total Protein 7.2 g/dL (6.4-8.2) Albumin 3.4 g/dL (3.4-5.0) Albumin/Globulin Ratio 0.9 (1.0-1.7) SARS-CoV-2 Antigen (Rapid) Negative (NEGATIVE) Urine Collection Type Unknown Urine Color Yellow Urine Clarity Clear Urine pH 5.5 (<5.0-8.0) Urine Specific [place] 1.020 (1.000-1.030) Urine Protein Negative mg/dL (NEG-TRACE) Urine Glucose (UA) Negative mg/dL (NEG) Urine Ketones (Stick) Negative mg/dL (NEG) Urine Blood Moderate (NEG) Urine Nitrite Negative (NEG) Urine Bilirubin Negative (NEG) Urine Urobilinogen Dipstick 0.2 mg/dL (0.2 mg/dL) Urine Leukocyte Esterase Negative (NEG) Urine RBC Rare /HPF (0-2) Urine WBC Rare /HPF (0-4) Urine Squamous Epithelial Cells Few /LPF Urine Bacteria 0 /HPF (0-FEW) Urine Mucus Slight /LPF VTE Prophylaxis Ordered VTE Prophylaxis Devices: Yes VTE Pharmacological Prophylaxi: Contraindicated Assessment/Plan Assessment/Plan fall acute right hip pain displacement of prior hip replacement, subluxed, attempted to be reduced with anethesia in the ER, ortho to be consulted supratherapeutic INR, recheck in AM, rhabdomyolysis, 1 liter NS bolus given, cont 100hr consult renal Acute renal failure, acute vasomotor nephropathy will need PT and OT tofollow COPD, nebs weakness, debiltiy tobacco use disorder admit Justifications for Admission Other Justification SULLY KILGORE MD Apr 01, 2021 21:05
--- NOTE | 2021-04-01 22:01 | RAD ---
Exam: Right hip one view INDICATION: Post reduction TECHNIQUE: Frontal view of the right hip Comparisons: None FINDINGS: Persistent dislocation at the right hip joint arthroplasty. No acute fractures seen IMPRESSION: Persistent dislocation at the right hip arthroplasty. Electronically signed by: Bruce Bianchi MD (04/01/2021 9:59 PM) [facility]
--- NOTE | 2021-04-01 22:02 | RAD ---
Exam: Right hip joint one view INDICATION: Post reduction TECHNIQUE: Frontal view of the pelvis Comparisons: None FINDINGS: On frontal view there appears to be improved alignment at the right hip joint arthroplasty. No acute fracture. IMPRESSION: Improved alignment at the right hip joint arthroplasty on single view Electronically signed by: Bruce Bianchi MD (04/01/2021 10:00 PM) [facility]
--- NOTE | 2021-04-01 22:02 | RAD ---
Exam: Right hip one view INDICATION: Post reduction TECHNIQUE: Frontal view of the right hip Comparisons: None FINDINGS: Persistent dislocation of the right hip joint. No acute fractures. IMPRESSION: Persistent dislocation of the right hip joint. Electronically signed by: Bruce Bianchi MD (04/01/2021 9:59 PM) [facility]
--- NOTE | 2021-04-01 22:35 | RAD ---
Exam: CT of chest without contrast INDICATION: Possible rib fracture TECHNIQUE: Sequential axial images through the chest obtained without IV contrast. Sagittal and coron al reformatted images were reconstructed from the axial data and reviewed. Exposure: One or more of the following in the visualized dose reduction techniques were utilized for this examination: 1. Automated exposure control 2. Adjustment of the MA and/or KV according to patient size 3. Use of iterative of reconstructive technique Comparisons: None FINDINGS: Visualized portions of the thyroid are unremarkable. No enlarged mediastinal lymph nodes are identifi ed. It size is normal. No pericardial effusion. Moderate coronary artery calcifications. Thoracic aorta h as a normal course and caliber. Pulmonary artery mildly enlarged with main pulmonary artery measuring up to 4 cm in diameter. Airways are patent. No consolidation or pneumothorax. Moderate centrilobular emphysematous change not ed probably at the upper lungs. 2 to 3 mm nodules noted in the right upper lobe for example series 2 image 28. No pleural effusion thickening. Visualized upper abdomen is unremarkable. Minimally displaced fractures involving the posterior right third and fourth ribs. IMPRESSION: 1. Minimally displaced fractures involving the posterior right third and fourth ribs. Age-indetermin ate. Correlate with point tenderness. 2. No pneumothorax. 3. Moderate centrilobular emphysematous change with several 2 to 3 mm pulmonary nodules. An optional one-year follow-up chest CT can BE performed. Electronically signed by: Bruce Bianchi MD (04/01/2021 10:33 PM) [facility]
--- NOTE | 2021-04-01 22:48 | RAD ---
Exam: CT right lower extremity without contrast INDICATION: Post reduction TECHNIQUE: Sequential axial images through the right hip obtained without IV contrast. Sagittal and c oronal reformatted images were reconstructed from the axial data and reviewed. Exposure: One or more of the following in the visualized dose reduction techniques were utilized for this examination: 1. Automated exposure control 2. Adjustment of the MA and/or KV according to patient size 3. Use of iterative of reconstructive technique Comparisons: Radiograph same day FINDINGS: Right hip arthroplasty is noted which is well seated and well aligned. Cerclage wires at the proximal femur is again noted. Subtle linear lucency is noted along the posterior aspect of the acetabulum se en on series [address] images Diverticulosis at the sigmoid colon. Otherwise visualized pelvic structures are unremarkable. No other fractures are identified. Soft tissues and visualized right lower extremity are unremarkable . IMPRESSION: 1. Improved alignment at the right hip arthroplasty. 2. Subtle linear lucency along the posterior aspect of the acetabulum as described above, may relate to a nondisplaced fracture. Electronically signed by: Bruce Bianchi MD (04/01/2021 10:45 PM) [facility]
[2021-04-01 22:50] VITALS: BP 171/67
[2021-04-01] MEDS: traZODone 100 MG TABLET. PO SCH (23:03)
[2021-04-02 03:30] VITALS: BP 146/84
[2021-04-02] MEDS ORDERED: ALBU2.5V8 IH (05:00)
[2021-04-02] MEDS ORDERED: WARF3TAB50 PO (05:00)
[2021-04-02] MEDS ORDERED: ALPR1TAB6 PO (05:00)
[2021-04-02] MEDS ORDERED: INFLUENZA VAX SCREEN BY RX. MC PRN (06:30)
[2021-04-02 07:00] VITALS: BP 150/90
--- NOTE | 2021-04-02 07:18 | PDOC ---
[employer] PROGRESS NOTE Date of Service DOS: DATE: 04/02/21 TIME: 07:17 Chief Complaint Chief Complaint A/P: fall acute right hip pain -will need PT and OT tofollow displacement of prior hip replacement, subluxed, attempted to be reduced with anethesia in the ER, ortho to be consulted Elevated troponin - likely demand ischemia vs rhabdo related supratherapeutic INR, recheck in AM, rhabdomyolysis, 1 liter NS bolus given, cont 100hr Acute renal failure, acute vasomotor nephropathy COPD, nebs weakness, debiltiy tobacco use disorder History of Present Illness History of Present Illness MS. alfaro, is a 70 year old female with acute hip pain. She has been falling, more freq falls, and had been down for 6 or 8 hours Then could not stand, and could not get upnormally ambulates without assistance. body survey Xrays taken, hip showed acute Dislocation of the right hip arthroplasties Patient is on Coumadin for a DVT diagnosed 1 year ago. Complaining in pain in her right hip and thigh. Admitted with cardiology, orthopedic surgery, and nephrology consults Having severe pain in her right leg. Repeat CT showed improved positioning of right hip last night. INR down to 5.9, CR 1.3.. She has no have any overt source of bleeding. Per her own admission she has dementia and would like her son and girlfriend to be notified of any changes. No chest pain or shortness of breath. Vitals/I&O Vitals/I&O: Vital Signs Date Time Temp Pulse Resp B/P (MAP) Pulse Ox O2 Delivery O2 Flow Rate FiO2 04/02/21 03:30 97.7 63 18 146/84 (104) 92 Nasal Cannula 5.0 97.7 I & O 04/01/21 04/01/21 04/02/21 15:00 23:00 07:00 Intake Total 0 ml Output Total 1200 ml Balance -1200 ml Physical Exam General: Alert, moderate distress Lungs: Clear Abdomen: Normal bowel sounds, Soft Extremities: No clubbing, Normal pulses Skin: Other (dry flaky skin, poor nail care, ) Labs Labs: Laboratory Tests Test 04/01/21 18:55 04/01/21 19:00 White Blood Count 12.5 x10^3/uL (4.0-11.0) Red Blood Count 5.31 x10^6/uL (3.50-5.40) Hemoglobin 11.3 g/dL (12.0-15.5) Hematocrit 36.4 % (36.0-47.0) Mean Corpuscular Volume 68 fL (79-100) Mean Corpuscular Hemoglobin 21 pg (25-35) Mean Corpuscular Hemoglobin Concent 31 g/dL (31-37) Red Cell Distribution Width 20.6 % (11.5-14.5) Platelet Count 362 x10^3/uL (140-400) Neutrophils (%) (Auto) 83 % (31-73) Lymphocytes (%) (Auto) 8 % (24-48) Monocytes (%) (Auto) 9 % (0-9) Eosinophils (%) (Auto) 0 % (0-3) Basophils (%) (Auto) 1 % (0-3) Neutrophils # (Auto) 10.3 x10^3/uL (1.8-7.7) Lymphocytes # (Auto) 1.0 x10^3/uL (1.0-4.8) Monocytes # (Auto) 1.2 x10^3/uL (0.0-1.1) Eosinophils # (Auto) 0.0 x10^3/uL (0.0-0.7) Basophils # (Auto) 0.1 x10^3/uL (0.0-0.2) Platelet Estimate Adequate (ADEQUATE) Polychromasia Slight Hypochromasia Mod Poikilocytosis Slight Anisocytosis Mod Microcytosis Marked Target Cells Occ Ovalocytes Few Helmet Cells Occ Schistocytes Occ Prothrombin Time 53.7 SEC (11.7-14.0) Prothromb Time International Ratio 6.3 (0.8-1.1) Sodium Level 138 mmol/L (136-145) Potassium Level 4.5 mmol/L (3.5-5.1) Chloride Level 103 mmol/L (98-107) Carbon Dioxide Level 26 mmol/L (21-32) Anion Gap 9 (6-14) Blood Urea Nitrogen 31 mg/dL (7-20) Creatinine 1.7 mg/dL (0.6-1.0) Estimated GFR (Cockcroft-Gault) 29.7 BUN/Creatinine Ratio 18 (6-20) Glucose Level 99 mg/dL (70-99) Lactic Acid Level 1.2 mmol/L (0.4-2.0) Calcium Level 8.8 mg/dL (8.5-10.1) Phosphorus Level 4.5 mg/dL (2.6-4.7) Magnesium Level 2.2 mg/dL (1.8-2.4) Total Bilirubin 0.4 mg/dL (0.2-1.0) Aspartate Amino Transf (AST/SGOT) 127 U/L (15-37) Alanine Aminotransferase (ALT/SGPT) 50 U/L (14-59) Alkaline Phosphatase 113 U/L (46-116) Creatine Kinase 4246 U/L (26-192) Myoglobin 3434 ng/mL (9-82) Troponin I Quantitative 0.540 ng/mL (0.000-0.055) HS-Jpt-E-Type Natriuretic Peptide 12445 pg/mL (0-124) Total Protein 7.2 g/dL (6.4-8.2) Albumin 3.4 g/dL (3.4-5.0) Albumin/Globulin Ratio 0.9 (1.0-1.7) SARS-CoV-2 Antigen (Rapid) Negative (NEGATIVE) Urine Collection Type Unknown Urine Color Yellow Urine Clarity Clear Urine pH 5.5 (<5.0-8.0) Urine Specific [place] 1.020 (1.000-1.030) Urine Protein Negative mg/dL (NEG-TRACE) Urine Glucose (UA) Negative mg/dL (NEG) Urine Ketones (Stick) Negative mg/dL (NEG) Urine Blood Moderate (NEG) Urine Nitrite Negative (NEG) Urine Bilirubin Negative (NEG) Urine Urobilinogen Dipstick 0.2 mg/dL (0.2 mg/dL) Urine Leukocyte Esterase Negative (NEG) Urine RBC Rare /HPF (0-2) Urine WBC Rare /HPF (0-4) Urine Squamous Epithelial Cells Few /LPF Urine Bacteria 0 /HPF (0-FEW) Urine Mucus Slight /LPF Assessment and Plan Assessmemt and Plan Problems Medical Problems: (1) AMS (altered mental status) Status: Acute (2) Displacement of internal right hip prosthesis Status: Acute (3) Falls Status: Acute (4) Supratherapeutic international normalized ratio (INR) Status: Acute Comment Review of Relevant I have reviewed the following items nupur (where applicable) has been applied. Medications: Current Medications Medications (Trade) Dose Ordered Sig/Chanel Route PRN Reason Start Time Stop Time Status Last Admin Dose Admin Fentanyl Citrate (Fentanyl 2ml Vial) 25 mcg 1X ONCE IVP 04/01/21 18:15 04/01/21 18:16 DC 04/01/21 19:21 Sodium Chloride 500 ml @ 500 mls/hr 1X ONCE IV 04/01/21 18:15 04/01/21 19:14 DC 04/01/21 19:22 Propofol (Diprivan) 200 mg 1X ONCE IV 04/01/21 20:00 04/01/21 20:07 DC 04/01/21 20:30 Sodium Chloride 1,000 ml @ 100 mls/hr CONT PRN IV SEE I/O RECORD 04/01/21 21:00 04/01/21 23:07 Propofol (Diprivan) 80 mg 1X ONCE IV 04/01/21 22:00 04/01/21 22:01 DC 04/01/21 21:29 Justifications for Admission Other Justification FRITZ PAREDES MD Apr 02, 2021 07:18
[2021-04-02 07:56] LABS: BASO % 0 % (0-3); EOS % 0 % (0-3); HEMATOCRIT 33.5 % (36.0-47.0); HEMOGLOBIN 10.4 g/dL (12.0-15.5); LYMPH # 0.9 x10^3/uL (1.0-4.8); LYMPH % 8 % (24-48); MEAN CORPUSCULAR HEMOGLOBIN 21 pg (25-35); MEAN CORPUSCULAR HGB CONC 31 g/dL (31-37); MEAN CORPUSCULAR VOLUME 68 fL (79-100); MONO # 1.2 x10^3/uL (0.0-1.1); MONO % 11 % (0-9); NEUT # 9.5 x10^3/uL (1.8-7.7); NEUT % 81 % (31-73); PLATELET COUNT 341 x10^3/uL (140-400); RED BLOOD COUNT 4.93 x10^6/uL (3.50-5.40); WHITE BLOOD COUNT 11.7 x10^3/uL (4.0-11.0)
[2021-04-02 08:26] LABS: PROTHROMBIN TIME PATIENT 51.3 SEC (11.7-14.0)
[2021-04-02] MEDS: IPRATROPIUM/ALBUTEROL 20/100mcg/INH INHALER. INH SCH ×4 (08:49→20:41)
[2021-04-02] MEDS: CHOLECALCIFEROL (VITAMIN D3) 1,000 UNIT TABLET PO SCH (09:00)
[2021-04-02] MEDS ORDERED: LOSARTAN POTASSIUM 50 MG TABLET. PO SCH (09:00)
[2021-04-02] MEDS: CITALOPRAM 20 MG TABLET. PO SCH (09:00)
[2021-04-02] MEDS: MULTIVITAMIN with MINERAL TABLET. PO SCH (09:00)
[2021-04-02 10:09] LABS: ALBUMIN 2.8 g/dL (3.4-5.0); ALBUMIN/GLOBULIN RATIO 0.9 (1.0-1.7); CREATININE 1.3 mg/dL (0.6-1.0); GFR 40.5; POTASSIUM 4.4 mmol/L (3.5-5.1); TOTAL BILIRUBIN 0.5 mg/dL (0.2-1.0)
[2021-04-02 11:00] VITALS: BP 153/95
--- NOTE | 2021-04-02 11:03 | PDOC2 ---
CONSULT Date of Consult Date of Consult DATE: 04/02/21 TIME: 10:58 Reason for Consult Reason for Consult: VERONICA Referring Physician Referring Physician: MAGUI Identification/Chief Complaint Chief Complaint FALL Source Source: Caregiver, Chart review History of Present Illness Reason for Visit: THIS IS A 70 YR OLD WITH ACUTE HIP PAIN. HAD A FALL. PER PT JUST WEAKNESS. DENIED ANY DIZZINESS. HEMODYNAMICALLY STABLE. CR OF 1.7. NO HX OF CKD. CR WNL LAST YEAR. UA NOTABLE FOR DIPSTICK POS BLOOD BUT ONLY FEW SEEN ON HPF. CPK LEVEL IS OVER 4000. NO NEPHROTOXIN USE HX. SHE HAS BEEN DX WITH RIGHT HIP DISLOCATION. ORTHOPEDIC EVALUATION ONGOING. Past Medical History Cardiovascular: HTN, Hyperlipidemia Pulmonary: COPD CENTRAL NERVOUS SYSTEM: Other GI: No pertinent hx Heme/Onc: No pertinent hx Hepatobiliary: No pertinent hx Psych: Anxiety Musculoskeletal: Osteoarthritis Rheumatologic: No pertinent hx Infectious disease: No pertinent hx Renal/: No pertinent hx Endocrine: No pertinent hx Past Surgical History Past Surgical History: Arthroscopy, Total hip replacement, Tonsillectomy, Hysterectomy, Other Family History Family History: Coronary Artery Disease, Other Social History <1 pack per day ALCOHOL: none Drugs: None Lives: with Family Current Problem List Problem List Problems Medical Problems: (1) AMS (altered mental status) Status: Acute (2) Displacement of internal right hip prosthesis Status: Acute (3) Falls Status: Acute (4) Supratherapeutic international normalized ratio (INR) Status: Acute Current Medications Current Medications Current Medications Fentanyl Citrate (Fentanyl 2ml Vial) 25 mcg 1X ONCE IVP Last administered on 04/01/21at 19:21; Start 04/01/21 at 18:15; Stop 04/01/21 at 18:16; Status DC Sodium Chloride 500 ml @ 500 mls/hr 1X ONCE IV Last administered on 04/01/21at 19:22; Start 04/01/21 at 18:15; Stop 04/01/21 at 19:14; Status DC Fentanyl Citrate (Fentanyl 2ml Vial) 75 mcg 1X ONCE IVP ; Start 04/01/21 at 20:00; Stop 04/01/21 at 20:07; Status DC Propofol (Diprivan) 200 mg 1X ONCE IV Last administered on 04/01/21at 20:30; Start 04/01/21 at 20:00; Stop 04/01/21 at 20:07; Status DC Vitamin D (Vitamin D3) 1,000 unit DAILY PO ; Start 04/02/21 at 09:00 Trazodone HCl (Desyrel) 100 mg HS PO ; Start 04/01/21 at 22:00 Cyclobenzaprine HCl (Flexeril) 10 mg PRN Q6HRS PRN PO MUSCLE SPASMS; Start 04/01/21 at 21:00 Citalopram Hydrobromide (CeleXA) 20 mg DAILY PO ; Start 04/02/21 at 09:00 Multivitamins (Thera M Plus) 1 tab DAILY PO ; Start 04/02/21 at 09:00 Losartan Potassium (Cozaar) 100 mg DAILY PO ; Start 04/02/21 at 09:00 Sodium Chloride 1,000 ml @ 100 mls/hr CONT PRN IV SEE I/O RECORD Last administered on 04/01/21at 23:07; Start 04/01/21 at 21:00 Albuterol/ Ipratropium (Duoneb) 3 ml [id number] NEB ; Start 04/01/21 at 21:00; Status Cancel Albuterol/ Ipratropium (Combivent Respimat 20-100 Mcg) 1 puff RTQID INH Last administered on 04/02/21at 08:49; Start 04/02/21 at 08:00 Propofol (Diprivan) 80 mg 1X ONCE IV Last administered on 04/01/21at 21:29; Start 04/01/21 at 22:00; Stop 04/01/21 at 22:01; Status DC Info (FLU VACCINE SCREEN per RX) 1 each PRN DAILY PRN UNABLE TO RESPOND; Start 04/02/21 at 06:30 Succinylcholine Chloride (Anectine) 200 mg STK-MED ONCE .ROUTE ; Start 04/01/21 at 21:00; Stop 04/02/21 at 09:00; Status DC Propofol (Diprivan) 200 mg STK-MED ONCE IV ; Start 04/01/21 at 21:00; Stop 04/02/21 at 09:00; Status DC Active Scripts Active Reported Proair Hfa Inhaler (Albuterol Sulfate) 8.5 Gm Hfa.aer.ad 2 Puff IH PRN Q4-6HRS PRN 21 Days Alprazolam 1 Mg Tablet 1 Mg PO BID Warfarin Sodium 3 Mg Tablet 3 Mg PO DAILY Wellbutrin Xl (Bupropion Hcl) 300 Mg Tab.er.24h 1 Tab PO DAILY Cyclobenzaprine HCl ER (Cyclobenzaprine HCl) 15 Mg Cap.er.24h 10 Mg PO PRN Q6HRS PRN Vitamin D3 (Cholecalciferol (Vitamin D3)) 1,000 Unit Tablet 1 Tab PO DAILY Multivitamins (Multivitamin) 1 Each Tablet 1 Tab PO DAILY Rosuvastatin Calcium 20 Mg Tablet 20 Mg PO HS Escitalopram Oxalate 10 Mg Tablet 10 Mg PO DAILY Trazodone Hcl 100 Mg Tablet 100 Mg PO HS Olmesartan Medoxomil 20 Mg Tablet 20 Mg PO DAILY Allergies Allergies: Coded Allergies: No Known Drug Allergies (Unverified , 03/14/19) ROS General: YES: Fatigue, Malaise PSYCHOLOGICAL ROS: YES: Anxiety Eyes: Yes Decreased vision HEENT: YES: Heacaches ALLERGY AND IMMUNOLOGY: YES: Seasonal Allergies Respiratory: YES: Cough Gastrointestinal: Yes Constipation Genitourinary: YES Frequency Musculoskeletal: Yes Joint Pain, Yes Joint Stiffness, Yes Muscular Weakness Neurological: Yes Weakness Skin: Yes Dry Skin Physical Exam General: Alert, Oriented X3, Cooperative, No acute distress HEENT: Atraumatic, PERRLA Lungs: Clear to auscultation Heart: Regular rate Abdomen: Normal bowel sounds, Soft, No tenderness Extremities: No clubbing Skin: No breakdown Neuro: Normal speech Psych/Mental Status: Mental status NL, Mood NL MUSCULOSKELETAL: No joint tenderness, No swelling Vitals VITALS Vital Signs Date Time Temp Pulse Resp B/P (MAP) Pulse Ox O2 Delivery O2 Flow Rate FiO2 04/02/21 08:30 Nasal Cannula 5.0 04/02/21 07:00 98.2 92 18 150/90 (110) 90 98.2 Labs Labs Laboratory Tests Test 04/01/21 18:55 04/01/21 19:00 04/02/21 07:40 White Blood Count 12.5 x10^3/uL (4.0-11.0) 11.7 x10^3/uL (4.0-11.0) Red Blood Count 5.31 x10^6/uL (3.50-5.40) 4.93 x10^6/uL (3.50-5.40) Hemoglobin 11.3 g/dL (12.0-15.5) 10.4 g/dL (12.0-15.5) Hematocrit 36.4 % (36.0-47.0) 33.5 % (36.0-47.0) Mean Corpuscular Volume 68 fL (79-100) 68 fL (79-100) Mean Corpuscular Hemoglobin 21 pg (25-35) 21 pg (25-35) Mean Corpuscular Hemoglobin Concent 31 g/dL (31-37) 31 g/dL (31-37) Red Cell Distribution Width 20.6 % (11.5-14.5) 20.0 % (11.5-14.5) Platelet Count 362 x10^3/uL (140-400) 341 x10^3/uL (140-400) Neutrophils (%) (Auto) 83 % (31-73) 81 % (31-73) Lymphocytes (%) (Auto) 8 % (24-48) 8 % (24-48) Monocytes (%) (Auto) 9 % (0-9) 11 % (0-9) Eosinophils (%) (Auto) 0 % (0-3) 0 % (0-3) Basophils (%) (Auto) 1 % (0-3) 0 % (0-3) Neutrophils # (Auto) 10.3 x10^3/uL (1.8-7.7) 9.5 x10^3/uL (1.8-7.7) Lymphocytes # (Auto) 1.0 x10^3/uL (1.0-4.8) 0.9 x10^3/uL (1.0-4.8) Monocytes # (Auto) 1.2 x10^3/uL (0.0-1.1) 1.2 x10^3/uL (0.0-1.1) Eosinophils # (Auto) 0.0 x10^3/uL (0.0-0.7) 0.0 x10^3/uL (0.0-0.7) Basophils # (Auto) 0.1 x10^3/uL (0.0-0.2) 0.0 x10^3/uL (0.0-0.2) Platelet Estimate Adequate (ADEQUATE) Polychromasia Slight Hypochromasia Mod Poikilocytosis Slight Anisocytosis Mod Microcytosis Marked Target Cells Occ Ovalocytes Few Helmet Cells Occ Schistocytes Occ Prothrombin Time 53.7 SEC (11.7-14.0) 51.3 SEC (11.7-14.0) Prothromb Time International Ratio 6.3 (0.8-1.1) 5.9 (0.8-1.1) Sodium Level 138 mmol/L (136-145) 140 mmol/L (136-145) Potassium Level 4.5 mmol/L (3.5-5.1) 4.4 mmol/L (3.5-5.1) Chloride Level 103 mmol/L (98-107) 106 mmol/L (98-107) Carbon Dioxide Level 26 mmol/L (21-32) 25 mmol/L (21-32) Anion Gap 9 (6-14) 9 (6-14) Blood Urea Nitrogen 31 mg/dL (7-20) 24 mg/dL (7-20) Creatinine 1.7 mg/dL (0.6-1.0) 1.3 mg/dL (0.6-1.0) Estimated GFR (Cockcroft-Gault) 29.7 40.5 BUN/Creatinine Ratio 18 (6-20) 18 (6-20) Glucose Level 99 mg/dL (70-99) 96 mg/dL (70-99) Lactic Acid Level 1.2 mmol/L (0.4-2.0) Calcium Level 8.8 mg/dL (8.5-10.1) 8.0 mg/dL (8.5-10.1) Phosphorus Level 4.5 mg/dL (2.6-4.7) Magnesium Level 2.2 mg/dL (1.8-2.4) Total Bilirubin 0.4 mg/dL (0.2-1.0) 0.5 mg/dL (0.2-1.0) Aspartate Amino Transf (AST/SGOT) 127 U/L (15-37) 111 U/L (15-37) Alanine Aminotransferase (ALT/SGPT) 50 U/L (14-59) 39 U/L (14-59) Alkaline Phosphatase 113 U/L (46-116) 92 U/L (46-116) Creatine Kinase 4246 U/L (26-192) Myoglobin 3434 ng/mL (9-82) Troponin I Quantitative 0.540 ng/mL (0.000-0.055) TT-Nsb-P-Type Natriuretic Peptide 35796 pg/mL (0-124) Total Protein 7.2 g/dL (6.4-8.2) 6.0 g/dL (6.4-8.2) Albumin 3.4 g/dL (3.4-5.0) 2.8 g/dL (3.4-5.0) Albumin/Globulin Ratio 0.9 (1.0-1.7) 0.9 (1.0-1.7) SARS-CoV-2 Antigen (Rapid) Negative (NEGATIVE) Urine Collection Type Unknown Urine Color Yellow Urine Clarity Clear Urine pH 5.5 (<5.0-8.0) Urine Specific [place] 1.020 (1.000-1.030) Urine Protein Negative mg/dL (NEG-TRACE) Urine Glucose (UA) Negative mg/dL (NEG) Urine Ketones (Stick) Negative mg/dL (NEG) Urine Blood Moderate (NEG) Urine Nitrite Negative (NEG) Urine Bilirubin Negative (NEG) Urine Urobilinogen Dipstick 0.2 mg/dL (0.2 mg/dL) Urine Leukocyte Esterase Negative (NEG) Urine RBC Rare /HPF (0-2) Urine WBC Rare /HPF (0-4) Urine Squamous Epithelial Cells Few /LPF Urine Bacteria 0 /HPF (0-FEW) Urine Mucus Slight /LPF Laboratory Tests Test 04/01/21 18:55 04/01/21 19:00 04/02/21 07:40 White Blood Count 12.5 x10^3/uL (4.0-11.0) 11.7 x10^3/uL (4.0-11.0) Red Blood Count 5.31 x10^6/uL (3.50-5.40) 4.93 x10^6/uL (3.50-5.40) Hemoglobin 11.3 g/dL (12.0-15.5) 10.4 g/dL (12.0-15.5) Hematocrit 36.4 % (36.0-47.0) 33.5 % (36.0-47.0) Mean Corpuscular Volume 68 fL (79-100) 68 fL (79-100) Mean Corpuscular Hemoglobin 21 pg (25-35) 21 pg (25-35) Mean Corpuscular Hemoglobin Concent 31 g/dL (31-37) 31 g/dL (31-37) Red Cell Distribution Width 20.6 % (11.5-14.5) 20.0 % (11.5-14.5) Platelet Count 362 x10^3/uL (140-400) 341 x10^3/uL (140-400) Neutrophils (%) (Auto) 83 % (31-73) 81 % (31-73) Lymphocytes (%) (Auto) 8 % (24-48) 8 % (24-48) Monocytes (%) (Auto) 9 % (0-9) 11 % (0-9) Eosinophils (%) (Auto) 0 % (0-3) 0 % (0-3) Basophils (%) (Auto) 1 % (0-3) 0 % (0-3) Neutrophils # (Auto) 10.3 x10^3/uL (1.8-7.7) 9.5 x10^3/uL (1.8-7.7) Lymphocytes # (Auto) 1.0 x10^3/uL (1.0-4.8) 0.9 x10^3/uL (1.0-4.8) Monocytes # (Auto) 1.2 x10^3/uL (0.0-1.1) 1.2 x10^3/uL (0.0-1.1) Eosinophils # (Auto) 0.0 x10^3/uL (0.0-0.7) 0.0 x10^3/uL (0.0-0.7) Basophils # (Auto) 0.1 x10^3/uL (0.0-0.2) 0.0 x10^3/uL (0.0-0.2) Platelet Estimate Adequate (ADEQUATE) Polychromasia Slight Hypochromasia Mod Poikilocytosis Slight Anisocytosis Mod Microcytosis Marked Target Cells Occ Ovalocytes Few Helmet Cells Occ Schistocytes Occ Prothrombin Time 53.7 SEC (11.7-14.0) 51.3 SEC (11.7-14.0) Prothromb Time International Ratio 6.3 (0.8-1.1) 5.9 (0.8-1.1) Sodium Level 138 mmol/L (136-145) 140 mmol/L (136-145) Potassium Level 4.5 mmol/L (3.5-5.1) 4.4 mmol/L (3.5-5.1) Chloride Level 103 mmol/L (98-107) 106 mmol/L (98-107) Carbon Dioxide Level 26 mmol/L (21-32) 25 mmol/L (21-32) Anion Gap 9 (6-14) 9 (6-14) Blood Urea Nitrogen 31 mg/dL (7-20) 24 mg/dL (7-20) Creatinine 1.7 mg/dL (0.6-1.0) 1.3 mg/dL (0.6-1.0) Estimated GFR (Cockcroft-Gault) 29.7 40.5 BUN/Creatinine Ratio 18 (6-20) 18 (6-20) Glucose Level 99 mg/dL (70-99) 96 mg/dL (70-99) Lactic Acid Level 1.2 mmol/L (0.4-2.0) Calcium Level 8.8 mg/dL (8.5-10.1) 8.0 mg/dL (8.5-10.1) Phosphorus Level 4.5 mg/dL (2.6-4.7) Magnesium Level 2.2 mg/dL (1.8-2.4) Total Bilirubin 0.4 mg/dL (0.2-1.0) 0.5 mg/dL (0.2-1.0) Aspartate Amino Transf (AST/SGOT) 127 U/L (15-37) 111 U/L (15-37) Alanine Aminotransferase (ALT/SGPT) 50 U/L (14-59) 39 U/L (14-59) Alkaline Phosphatase 113 U/L (46-116) 92 U/L (46-116) Creatine Kinase 4246 U/L (26-192) Myoglobin 3434 ng/mL (9-82) Troponin I Quantitative 0.540 ng/mL (0.000-0.055) BK-Qud-O-Type Natriuretic Peptide 93332 pg/mL (0-124) Total Protein 7.2 g/dL (6.4-8.2) 6.0 g/dL (6.4-8.2) Albumin 3.4 g/dL (3.4-5.0) 2.8 g/dL (3.4-5.0) Albumin/Globulin Ratio 0.9 (1.0-1.7) 0.9 (1.0-1.7) SARS-CoV-2 Antigen (Rapid) Negative (NEGATIVE) Urine Collection Type Unknown Urine Color Yellow Urine Clarity Clear Urine pH 5.5 (<5.0-8.0) Urine Specific [place] 1.020 (1.000-1.030) Urine Protein Negative mg/dL (NEG-TRACE) Urine Glucose (UA) Negative mg/dL (NEG) Urine Ketones (Stick) Negative mg/dL (NEG) Urine Blood Moderate (NEG) Urine Nitrite Negative (NEG) Urine Bilirubin Negative (NEG) Urine Urobilinogen Dipstick 0.2 mg/dL (0.2 mg/dL) Urine Leukocyte Esterase Negative (NEG) Urine RBC Rare /HPF (0-2) Urine WBC Rare /HPF (0-4) Urine Squamous Epithelial Cells Few /LPF Urine Bacteria 0 /HPF (0-FEW) Urine Mucus Slight /LPF Images Images Exam: Right hip one view INDICATION: Post reduction TECHNIQUE: Frontal view of the right hip Comparisons: None FINDINGS: Persistent dislocation at the right hip joint arthroplasty. No acute fractures seen IMPRESSION: Persistent dislocation at the right hip arthroplasty. Electronically signed by: Bruce Bianchi MD (04/01/2021 9:59 PM) [facility] Assessment/Plan Assessment/Plan IMP VERONICA-NO CKD-CR OF 1.7 RHABDOMYOLYSIS ACUTE FALL RIGHT HIP DISPLACEMENT COPD PLAN HYDRATION F/U CPK LABS IN AM WILL FOLLOW SERGEY SÁNCHEZ MD Apr 02, 2021 11:03
[2021-04-02] MEDS: IV NORMAL SALINE 1000ML BAG 1,000 ML IV SCH ×2 (11:31→20:41)
--- NOTE | 2021-04-02 13:28 | NUR ---
Flu vaccine held by this RN-INR 5.9
[2021-04-02] MEDS ORDERED: hydrALAZINE 20 MG/ML VIAL. IVP PRN (13:30)
--- NOTE | 2021-04-02 13:58 | PDOC2 ---
CARDIAC CONSULT DATE OF CONSULT Date of Consult DATE: 04/02/21 TIME: 13:23 REASON FOR CONSULT Reason for Consult: Heat failure REFERRING PHYSICIAN Referring Physician: Ever SOURCE Source: Chart review, Patient HISTORY OF PRESENT ILLNESS HISTORY OF PRESENT ILLNESS This is a 70 yo female admitted for complains of fall. Apparently she has been falling and last time she was not able to get up and had a right hip prosthesis dislocation with past RTHA. Upon admission she was noted with severe rhabdomyolysis with coagulopathy with associated use of coumadin with prior PE. Rosie is a poor historian. She could not remember exactly what happened but she did fall at least 2x. No chest pain or SOA and no leg edema. Per chart review possibly on the floor for at least 6 hours. PAST MEDICAL HISTORY Past Medical History Cardiovascular: HTN, Hyperlipidemia, PE Pulmonary: COPD CENTRAL NERVOUS SYSTEM: Other (No pertinent history) GI: No pertinent hx Heme/Onc: No pertinent hx Hepatobiliary: No pertinent hx Psych: Anxiety Musculoskeletal: Osteoarthritis Rheumatologic: No pertinent hx Infectious disease: No pertinent hx ENT: No pertinent hx Renal/: No pertinent hx Endocrine: No pertinent hx Dermatology: No pertinent hx PAST SURGICAL HISTORY Past Surgical History Arthroscopy (LRTC repair), Total hip replacement (right), Tonsillectomy, Hysterectomy, Other (left wrist fracture repair) FAMILY HISTORY Family History Coronary Artery Disease (dayghter in her 40s), Other (lymphoma- mother) SOCIAL HISTORY Social History Smoke: <1 pack per day ALCOHOL: none Drugs: None Lives: with Family CURRENT MEDICATIONS CURRENT MEDICATIONS Current Medications Medications (Trade) Dose Ordered Sig/Chanel Route PRN Reason Start Time Stop Time Status Last Admin Dose Admin Fentanyl Citrate (Fentanyl 2ml Vial) 25 mcg 1X ONCE IVP 04/01/21 18:15 04/01/21 18:16 DC 04/01/21 19:21 Sodium Chloride 500 ml @ 500 mls/hr 1X ONCE IV 04/01/21 18:15 04/01/21 19:14 DC 04/01/21 19:22 Propofol (Diprivan) 200 mg 1X ONCE IV 04/01/21 20:00 04/01/21 20:07 DC 04/01/21 20:30 Sodium Chloride 1,000 ml @ 100 mls/hr CONT PRN IV SEE I/O RECORD 04/01/21 21:00 04/02/21 11:07 DC 04/01/21 23:07 Albuterol/ Ipratropium (Combivent Respimat 20-100 Mcg) 1 puff RTQID INH 04/02/21 08:00 04/02/21 11:31 Propofol (Diprivan) 80 mg 1X ONCE IV 04/01/21 22:00 04/01/21 22:01 DC 04/01/21 21:29 Sodium Chloride 1,000 ml @ 100 mls/hr Q10H IV 04/02/21 12:00 04/02/21 11:31 ALLERGIES ALLERGIES: Coded Allergies: No Known Drug Allergies (Unverified , 03/14/19) ROS Review of System limited, poor historian PHYSICAL EXAM General: Alert, Oriented X3, Cooperative, No acute distress HEENT: Atraumatic, Mucous membr. moist/pink Lungs: Clear to auscultation Heart: Regular rate (SR), Normal S1, Normal S2, No murmurs Abdomen: Soft, No tenderness Extremities: No cyanosis, No edema Skin: No breakdown, No significant lesion Neuro: Normal speech, Sensation intact Psych/Mental Status: Mental status NL, Mood NL MUSCULOSKELETAL: Osteoarthritic changes both hands VITALS/I&O VITALS/I&O: Vital Signs Date Time Temp Pulse Resp B/P (MAP) Pulse Ox O2 Delivery O2 Flow Rate FiO2 04/02/21 11:00 98.2 61 18 153/95 (114) 91 Nasal Cannula 98.2 04/02/21 08:30 5.0 I & O 04/01/21 04/01/21 04/02/21 15:00 23:00 07:00 Intake Total 0 ml Output Total 1200 ml Balance -1200 ml LABS Lab: Laboratory Tests Test 04/01/21 18:55 04/01/21 19:00 04/02/21 07:40 White Blood Count 12.5 x10^3/uL (4.0-11.0) H 11.7 x10^3/uL (4.0-11.0) H Red Blood Count 5.31 x10^6/uL (3.50-5.40) 4.93 x10^6/uL (3.50-5.40) Hemoglobin 11.3 g/dL (12.0-15.5) L 10.4 g/dL (12.0-15.5) L Hematocrit 36.4 % (36.0-47.0) 33.5 % (36.0-47.0) L Mean Corpuscular Volume 68 fL (79-100) L 68 fL (79-100) L Mean Corpuscular Hemoglobin 21 pg (25-35) L 21 pg (25-35) L Mean Corpuscular Hemoglobin Concent 31 g/dL (31-37) 31 g/dL (31-37) Red Cell Distribution Width 20.6 % (11.5-14.5) H 20.0 % (11.5-14.5) H Platelet Count 362 x10^3/uL (140-400) 341 x10^3/uL (140-400) Neutrophils (%) (Auto) 83 % (31-73) H 81 % (31-73) H Lymphocytes (%) (Auto) 8 % (24-48) L 8 % (24-48) L Monocytes (%) (Auto) 9 % (0-9) 11 % (0-9) H Eosinophils (%) (Auto) 0 % (0-3) 0 % (0-3) Basophils (%) (Auto) 1 % (0-3) 0 % (0-3) Neutrophils # (Auto) 10.3 x10^3/uL (1.8-7.7) H 9.5 x10^3/uL (1.8-7.7) H Lymphocytes # (Auto) 1.0 x10^3/uL (1.0-4.8) 0.9 x10^3/uL (1.0-4.8) L Monocytes # (Auto) 1.2 x10^3/uL (0.0-1.1) H 1.2 x10^3/uL (0.0-1.1) H Eosinophils # (Auto) 0.0 x10^3/uL (0.0-0.7) 0.0 x10^3/uL (0.0-0.7) Basophils # (Auto) 0.1 x10^3/uL (0.0-0.2) 0.0 x10^3/uL (0.0-0.2) Platelet Estimate Adequate (ADEQUATE) Polychromasia Slight Hypochromasia Mod Poikilocytosis Slight Anisocytosis Mod Microcytosis Marked Target Cells Occ Ovalocytes Few Helmet Cells Occ Schistocytes Occ Prothrombin Time 53.7 SEC (11.7-14.0) H 51.3 SEC (11.7-14.0) H Prothrombin Time INR 6.3 (0.8-1.1) *H 5.9 (0.8-1.1) *H Sodium Level 138 mmol/L (136-145) 140 mmol/L (136-145) Potassium Level 4.5 mmol/L (3.5-5.1) 4.4 mmol/L (3.5-5.1) Chloride Level 103 mmol/L (98-107) 106 mmol/L (98-107) Carbon Dioxide Level 26 mmol/L (21-32) 25 mmol/L (21-32) Anion Gap 9 (6-14) 9 (6-14) Blood Urea Nitrogen 31 mg/dL (7-20) H 24 mg/dL (7-20) H Creatinine 1.7 mg/dL (0.6-1.0) H 1.3 mg/dL (0.6-1.0) H Estimated GFR (Cockcroft-Gault) 29.7 40.5 BUN/Creatinine Ratio 18 (6-20) 18 (6-20) Glucose Level 99 mg/dL (70-99) 96 mg/dL (70-99) Lactic Acid Level 1.2 mmol/L (0.4-2.0) Calcium Level 8.8 mg/dL (8.5-10.1) 8.0 mg/dL (8.5-10.1) L Phosphorus Level 4.5 mg/dL (2.6-4.7) Magnesium Level 2.2 mg/dL (1.8-2.4) Total Bilirubin 0.4 mg/dL (0.2-1.0) 0.5 mg/dL (0.2-1.0) Aspartate Amino Transferase (AST) 127 U/L (15-37) H 111 U/L (15-37) H Alanine Aminotransferase (ALT) 50 U/L (14-59) 39 U/L (14-59) Alkaline Phosphatase 113 U/L (46-116) 92 U/L (46-116) Creatine Kinase 4246 U/L (26-192) H Myoglobin 3434 ng/mL (9-82) H Troponin I Quantitative 0.540 ng/mL (0.000-0.055) UZ-Mza-K-Type Natriuretic Peptide 83077 pg/mL (0-124) H Total Protein 7.2 g/dL (6.4-8.2) 6.0 g/dL (6.4-8.2) L Albumin 3.4 g/dL (3.4-5.0) 2.8 g/dL (3.4-5.0) L Albumin/Globulin Ratio 0.9 (1.0-1.7) L 0.9 (1.0-1.7) L SARS-CoV-2 Antigen (Rapid) Negative (NEGATIVE) Urine Collection Type Unknown Urine Color Yellow Urine Clarity Clear Urine pH 5.5 (<5.0-8.0) Urine Specific [place] 1.020 (1.000-1.030) Urine Protein Negative mg/dL (NEG-TRACE) Urine Glucose (UA) Negative mg/dL (NEG) Urine Ketones (Stick) Negative mg/dL (NEG) Urine Blood Moderate (NEG) Urine Nitrite Negative (NEG) Urine Bilirubin Negative (NEG) Urine Urobilinogen Dipstick 0.2 mg/dL (0.2 mg/dL) Urine Leukocyte Esterase Negative (NEG) Urine RBC Rare /HPF (0-2) Urine WBC Rare /HPF (0-4) Urine Squamous Epithelial Cells Few /LPF Urine Bacteria 0 /HPF (0-FEW) Urine Mucus Slight /LPF Laboratory Tests 04/01/21 18:55 04/02/21 07:40 Laboratory Tests 04/01/21 18:55 04/02/21 07:40 ECHOCARDIOGRAM ECHOCARDIOGRAM <Conclusion> The left ventricle is normal size. Left ventricle systolic function is normal. The Ejection Fraction is 55-60%. There is mild concentric left ventricular hypertrophy. The right ventricle is moderately dilated. RV systolic function is borderline reduced. The right atrium is moderately dilated. Doppler and Color Flow revealed no significant aortic regurgitation. There is no significant aortic valvular stenosis. Doppler and Color Flow revealed trace mitral valve regurgitation. Doppler and Color Flow revealed mild tricuspid regurgitation. The pulmonary artery systolic pressure is estimated at 44-50 mmHg. DATE: 09/02/19 1492 ASSESSMENT/PLAN ASSESSMENT/PLAN 1. Traumatic mechanical fall: unclear for syncope as she is a poor historian otherwise no arrhythmias so far 2. RTHA with subluxation due to above, S/P close reduction 3. Right posterior minimally displaced 3rd and 4th rib fractures 4. COPD: compensated 5. HTN: controlled 6. HLP 7. Hx of PE/DVT with coumadin therapy 8. Coagulopathy: INR 5.9 no obvious bleed 9. Chronic diastolicCHF: clinically compensated 10. Rhabdomyolysis 11. Mild troponin elevation: doubt ACS. no CP, demand mediated with injuries, fall and VERONICA 12. VERONICA: improved, nephrology following 13. Cough possible aspiration 14. PUI Recommendations 1. Continue IVF 2. Presently NPO, Hold losartan. Hold statin. Start on low dose toprol and norvasc as well when able to take PO 3. Coumadin on hold 4. Supportive care. VIPUL LAWSON BULB SORTER Apr 02, 2021 13:58
[2021-04-02] MEDS ORDERED: FLU VACC QUAD 21-22 (6MOS+) PF 0.5 ML SYRINGE. VAX IM ONE (14:00)
[2021-04-02 15:00] VITALS: BP 134/85
[2021-04-02] MEDS: HYDROcodone/APAP 5/325MG 1 TAB TABLET PO PRN (17:46)
--- NOTE | 2021-04-02 17:49 | NUR ---
Bedside swallow performed by this RN. Pt tolerated well. Findings discussed with Dr. Yarbrough. Orders received for GI soft diet and thin liquids. Speech consult remains in place. Will order meal tray.
[2021-04-02 19:00] VITALS: BP 135/90
[2021-04-02] MEDS: traZODone 100 MG TABLET. PO SCH (20:41)
[2021-04-02 23:30] VITALS: BP 125/66
[2021-04-03 03:00] VITALS: BP 148/71
[2021-04-03] MEDS: HYDROcodone/APAP 5/325MG 1 TAB TABLET PO PRN ×2 (04:42→11:00)
[2021-04-03] MEDS: IV NORMAL SALINE 1000ML BAG 1,000 ML IV SCH ×2 (06:12→16:23)
[2021-04-03 07:00] VITALS: BP 127/72
[2021-04-03 07:46] LABS: PROTHROMBIN TIME PATIENT 40.7 SEC (11.7-14.0)
[2021-04-03] MEDS: IPRATROPIUM/ALBUTEROL 20/100mcg/INH INHALER. INH SCH ×4 (08:08→23:04)
[2021-04-03 08:28] LABS: CALCIUM 7.5 mg/dL (8.5-10.1); CREATININE 1.1 mg/dL (0.6-1.0); GFR 49.1; POTASSIUM 3.3 mmol/L (3.5-5.1)
[2021-04-03] MEDS: MULTIVITAMIN with MINERAL TABLET. PO SCH (09:16)
[2021-04-03] MEDS: CHOLECALCIFEROL (VITAMIN D3) 1,000 UNIT TABLET PO SCH (09:16)
[2021-04-03] MEDS: CITALOPRAM 20 MG TABLET. PO SCH (09:16)
[2021-04-03] MEDS: METOPROLOL SUCC 24HR ER 25 MG TAB.ER.24H. PO SCH (09:17)
--- NOTE | 2021-04-03 10:56 | PDOC ---
Renal-Progress Notes Subjective Notes Notes NO NEW COMPLAINTS History of Present Illness Hx of present illness STABLE Vitals Vitals Vital Signs Date Time Temp Pulse Resp B/P (MAP) Pulse Ox O2 Delivery O2 Flow Rate FiO2 04/03/21 09:17 80 127/72 04/03/21 07:41 Nasal Cannula 5.0 04/03/21 07:00 98.4 18 95 98.4 Weight Weight [ ] I.O. Intake and Output Intake and Output 04/03/21 07:00 Intake Total 2450 ml Output Total 1100 ml Balance 1350 ml Intake Oral 500 ml IV Total 1950 ml Output Urine Total 1100 ml # Voids 1 Labs Labs Laboratory Tests Test 04/03/21 06:55 Prothrombin Time 40.7 SEC (11.7-14.0) Prothromb Time International Ratio 4.4 (0.8-1.1) Sodium Level 138 mmol/L (136-145) Potassium Level 3.3 mmol/L (3.5-5.1) Chloride Level 105 mmol/L (98-107) Carbon Dioxide Level 26 mmol/L (21-32) Anion Gap 7 (6-14) Blood Urea Nitrogen 21 mg/dL (7-20) Creatinine 1.1 mg/dL (0.6-1.0) Estimated GFR (Cockcroft-Gault) 49.1 Glucose Level 106 mg/dL (70-99) Calcium Level 7.5 mg/dL (8.5-10.1) Creatine Kinase 2331 U/L (26-192) Review of Systems Constitutional: yes: weakness, oriented Ears/Nose/Throat: Yes: no symptom reported Eyes: Yes: no symptom reported Pulmonary: Yes no symptom reported Gastrointestional: Yes: constipation Genitourinary: Yes: no symptom reported Musculoskeletal: Yes: joint pain, joint swelling Skin: Yes no symptom reported Psychiatric/Neurological: Yes: no symptom reported Endocrine: Yes: no symptom reported Physical Exam General Appearance: no apparent distress Skin: warm Respiratory: bilateral CTA Heart: S1S2 Abdomen: soft, bowel sounds present Genitourinary: bladder flat Extremities: pulses present Neurology: alert, oriented Musculoskeletal: Osteoarthritis, Stiffness Assessment Assessment IMP VERONICA-NO CKD-CR OF 1.7 TO NOW 1.1 RHABDOMYOLYSIS-DECREASING CK LEVELS ACUTE FALL RIGHT HIP DISPLACEMENT COPD PLAN HYDRATION F/U CPK LABS IN AM WILL FOLLOW SERGEY SÁNCHEZ MD Apr 03, 2021 10:56
[2021-04-03 11:00] VITALS: BP 115/69
--- NOTE | 2021-04-03 12:04 | PDOC ---
CARDIO Progress Notes Date and Time Date of Service 04/03/2021 Time of Evaluation 1020 Subjective Subjective: No Chest Pain, No shortness of breath, No Palpitations Vitals Vitals Vital Signs Date Time Temp Pulse Resp B/P (MAP) Pulse Ox O2 Delivery O2 Flow Rate FiO2 04/03/21 09:17 80 127/72 04/03/21 07:41 Nasal Cannula 5.0 04/03/21 07:00 98.4 18 95 98.4 Weight Weight [ ] Input and Output Intake and Output Intake and Output 04/03/21 07:00 Intake Total 2450 ml Output Total 1100 ml Balance 1350 ml Intake Oral 500 ml IV Total 1950 ml Output Urine Total 1100 ml # Voids 1 Laboratory Labs Laboratory Tests Test 04/03/21 06:55 Prothrombin Time 40.7 SEC (11.7-14.0) Prothromb Time International Ratio 4.4 (0.8-1.1) Sodium Level 138 mmol/L (136-145) Potassium Level 3.3 mmol/L (3.5-5.1) Chloride Level 105 mmol/L (98-107) Carbon Dioxide Level 26 mmol/L (21-32) Anion Gap 7 (6-14) Blood Urea Nitrogen 21 mg/dL (7-20) Creatinine 1.1 mg/dL (0.6-1.0) Estimated GFR (Cockcroft-Gault) 49.1 Glucose Level 106 mg/dL (70-99) Calcium Level 7.5 mg/dL (8.5-10.1) Creatine Kinase 2331 U/L (26-192) Review of Systems Constitutional: yes: weakness, oriented Ears/Nose/Throat: Yes: no symptom reported Eyes: Yes: no symptom reported Pulmonary: Yes no symptom reported Gastrointestional: Yes: constipation Genitourinary: Yes: no symptom reported Musculoskeletal: Yes: joint pain, joint swelling Skin: Yes no symptom reported Psychiatric/Neurological: Yes: no symptom reported Endocrine: Yes: no symptom reported Physical Exam HEENT: Neck Supple W Full Motion Chest: Symmetric LUNGS: Clear to Auscultation Heart: RRR (SR), no gallops, no murmurs, irregularly irregular Abdomen: Soft N/T Extremities: No Calf Tenderness Neurology: alert, oriented, follow commands Assessment Assessment 1. Traumatic mechanical fall: unclear for syncope as she is a poor historian 2. prior RTHA with subluxation due to above, S/P close reduction 3. Right posterior minimally displaced 3rd and 4th rib fractures 4. COPD: compensated 5. HTN: controlled 6. HLP 7. Hx of PE/DVT with coumadin therapy 8. Coagulopathy: INR down to 4.4 no obvious bleed 9. Chronic diastolic CHF: clinically compensated 10. Rhabdomyolysis 11. Mild troponin elevation: doubt ACS. no CP, demand mediated with injuries, fall and VERONICA 12. VERONICA: improved, nephrology following 13. PSVT: brief episodes Recommendations 1. Continue IVF 2. Hold losartan. Hold statin. Continue low dose toprol and norvasc 3. Coumadin on hold 4. TTE today 5. MCOT Justicifation of Admission Dx: Justifications for Admission: Justification of Admission Dx: Yes VIPUL GOLDBERG POLICE LIAISON OFFICER Apr 03, 2021 12:04
[2021-04-03] MEDS ORDERED: POTASSIUM CHLORIDE 20 MEQ TABLET.ER. PO ONE (13:00)
--- NOTE | 2021-04-03 13:30 | NUR ---
SS following for discharge planning. SS reviewed pt chart and discussed with pt RN. Pt is from home with spouse and is currently requiring oxygen at four liters nasal canula. PO diet. COVID19 negative. PT/OT ordered and unable to work with pt until brace can be fitted. SS will continue to follow for discharge planning.
[2021-04-03 15:00] VITALS: BP 116/82
--- NOTE | 2021-04-03 16:41 | CARD ---
MR#: [id number] Date of Study: 04/03/2021 Ordering Physician: VIPUL GOLDBERG, Referring Physician: VIPUL GOLDBERG Tech: Janay Painter [facility] APPROVED REPORT EXAM: Two-dimensional and M-mode echocardiogram with Doppler and color Doppler. Other Information Quality : AverageHR: 78bpm Rhythm : NSR INDICATION COPD RISK FACTORS Hypertension 2D DIMENSIONS RVDd3.9 (2.9-3.5cm)Left Atrium(2D)3.6 (1.6-4.0cm) IVSd2.0 (0.7-1.1cm)Aortic Root(2D)3.6 (2.0-3.7cm) LVDd3.9 (3.9-5.9cm)LVOT Diameter2.1 (1.8-2.4cm) PWd1.5 (0.7-1.1cm)LVDs1.7 (2.5-4.0cm) FS (%) 55.9 %SV58.9 ml LVEF(%)86.8 (>50%) Aortic Valve AoV Peak Henrry.201.7cm/sAoV VTI33.1cm AO Peak GR.16.3mmHgLVOT VTI 25.30cm AO Mean GR.9mmHgAI P 1/2 [id number] Mitral Valve MV E Eljrdbjg77.2cm/sMV DECEL [id number] MV A Jyogrtud48.2cm/sE/A Ratio0.5 TDI Lateral E' P. V6.02cm/sMedial E' P. V8.70cm/s E/Lateral E'8.0E/Medial E'5.5 LEFT VENTRICLE The left ventricle is normal size. There is severe concentric left ventricular hypertrophy. The left ventricular systolic function is normal. Estimated ejection fraction 65%. There is normal LV segmenta l wall motion. Transmitral Doppler flow pattern is Grade I-abnormal relaxation pattern. RIGHT VENTRICLE The right ventricle is mildly dilated. The right ventricle is borderline hypertrophied. The right onur tricular systolic function is normal. ATRIA The left atrium is mildly dilated. The right atrium size is normal. The interatrial septum is intact with no evidence for an atrial septal defect or patent foramen ovale as noted on 2-D or Doppler imagi ng. AORTIC VALVE The aortic valve is normal in structure and function. Doppler and Color Flow revealed mild aortic reg urgitation. There is no significant aortic valvular stenosis. MITRAL VALVE The mitral valve is normal in structure and function. There is no evidence of mitral valve prolapse. There is no mitral valve stenosis. Doppler and Color-flow revealed mild to moderate mitral regurgitat ion. TRICUSPID VALVE The tricuspid valve is normal in structure and function. Doppler and Color Flow revealed mild tricusp id regurgitation. Estimated PAP 28-30 mmHg. There is no tricuspid valve stenosis. PULMONIC VALVE The pulmonary valve is normal in structure and function. Doppler and Color Flow revealed trace pulmon ic valvular regurgitation. GREAT VESSELS The aortic root is borderline enlarged. The ascending aorta is normal in size. The IVC is normal in s ize and collapses >50% with inspiration. PERICARDIAL EFFUSION There is no evidence of significant pericardial effusion. Critical Notification Critical Value: No <Conclusion> The left ventricular systolic function is normal. Estimated ejection fraction 65%. There is normal LV segmental wall motion. Transmitral Doppler flow pattern is Grade I-abnormal relaxation pattern. Mild aortic regurgitation. Mild to moderate mitral regurgitation. Mild tricuspid regurgitation. Estimated PAP 28-30 mmHg. There is no evidence of significant pericardial effusion. Signed by : Noe Damon, Electronically Approved : 04/03/2021 16:41:28
--- NOTE | 2021-04-03 17:57 | PDOC ---
[facility] PROGRESS NOTE Date of Service DOS: DATE: 04/03/21 TIME: 17:55 Chief Complaint Chief Complaint A/P: fall acute right hip pain -will need PT and OT tofollow displacement of prior hip replacement, subluxed, attempted to be reduced with anethesia in the ER, ortho to be consulted Elevated troponin - likely demand ischemia vs rhabdo related supratherapeutic INR, recheck in AM, rhabdomyolysis, 1 liter NS bolus given, cont 100hr Acute renal failure, acute vasomotor nephropathy COPD, nebs weakness, debiltiy tobacco use disorder History of Present Illness History of Present Illness MS. alfaro, is a 70 year old female with acute hip pain. She has been falling, more freq falls, and had been down for 6 or 8 hours Then could not stand, and could not get upnormally ambulates without assistance. body survey Xrays taken, hip showed acute Dislocation of the right hip arthroplasties Patient is on Coumadin for a DVT diagnosed 1 year ago. Complaining in pain in her right hip and thigh. Admitted with cardiology, orthopedic surgery, and nephrology consults 04/02: Having severe pain in her right leg. Repeat CT showed improved positioning of right hip last night. INR down to 5.9, CR 1.3.. She has no have any overt source of bleeding. Per her own admission she has dementia and would like her son and girlfriend to be notified of any changes. No chest pain or shortness of breath. 04/03: Patient reports improvement in her leg pain. Brace has been provided and place. INR 4.4 today. CK 2331. We will continue IV fluids and monitor renal function, creatinine 1.1. Vitals/I&O Vitals/I&O: Vital Signs Date Time Temp Pulse Resp B/P (MAP) Pulse Ox O2 Delivery O2 Flow Rate FiO2 04/03/21 11:00 97.5 99 18 115/69 (84) 93 Nasal Cannula 4.0 97.5 I & O 04/02/21 04/02/21 04/03/21 15:00 23:00 07:00 Intake Total 1000 ml 1250 ml 200 ml Output Total 200 ml 200 ml 700 ml Balance 800 ml 1050 ml -500 ml Physical Exam General: Alert, Oriented X3, Cooperative, No acute distress Heart: Regular rate (SR), Normal S1, Normal S2, No murmurs Lungs: Clear Abdomen: Soft, No tenderness Extremities: No cyanosis, No edema Skin: No breakdown, No significant lesion Labs Labs: Laboratory Tests Test 04/03/21 06:55 Prothrombin Time 40.7 SEC (11.7-14.0) Prothromb Time International Ratio 4.4 (0.8-1.1) Sodium Level 138 mmol/L (136-145) Potassium Level 3.3 mmol/L (3.5-5.1) Chloride Level 105 mmol/L (98-107) Carbon Dioxide Level 26 mmol/L (21-32) Anion Gap 7 (6-14) Blood Urea Nitrogen 21 mg/dL (7-20) Creatinine 1.1 mg/dL (0.6-1.0) Estimated GFR (Cockcroft-Gault) 49.1 Glucose Level 106 mg/dL (70-99) Calcium Level 7.5 mg/dL (8.5-10.1) Creatine Kinase 2331 U/L (26-192) Assessment and Plan Assessmemt and Plan Problems Medical Problems: (1) AMS (altered mental status) Status: Acute (2) Displacement of internal right hip prosthesis Status: Acute (3) Falls Status: Acute (4) Supratherapeutic international normalized ratio (INR) Status: Acute Comment Review of Relevant I have reviewed the following items nupur (where applicable) has been applied. Medications: Current Medications Medications (Trade) Dose Ordered Sig/Chanel Route PRN Reason Start Time Stop Time Status Last Admin Dose Admin Metoprolol Succinate (Toprol Xl) 25 mg DAILY PO 04/03/21 09:00 04/03/21 09:17 Amlodipine Besylate (Norvasc) 10 mg DAILY PO 04/03/21 09:00 04/03/21 09:17 Potassium Chloride (Klor-Con) 20 meq 1X ONCE PO 04/03/21 13:00 04/03/21 13:01 DC 04/03/21 12:28 Justifications for Admission Other Justification JACK TERRY MD Apr 03, 2021 17:57
[2021-04-03 19:00] VITALS: BP 106/70
[2021-04-03 23:00] VITALS: BP 133/86
[2021-04-03] MEDS: traZODone 100 MG TABLET. PO SCH (23:02)
[2021-04-04] MEDS: IV NORMAL SALINE 1000ML BAG 1,000 ML IV SCH ×3 (01:56→21:47)
[2021-04-04 03:00] VITALS: BP 138/75
[2021-04-04 07:00] VITALS: BP_SYST 104; BP_DIAS 59; BP_DIAS 62
--- NOTE | 2021-04-04 07:29 | PDOC ---
[facility] PROGRESS NOTE Date of Service DOS: DATE: 04/04/21 TIME: 07:12 Chief Complaint Chief Complaint A/P: fall acute right hip pain -will need PT and OT tofollow displacement of prior hip replacement, subluxed, attempted to be reduced with anethesia in the ER, ortho to be consulted Elevated troponin - likely demand ischemia vs rhabdo related supratherapeutic INR, recheck in AM, rhabdomyolysis, 1 liter NS bolus given, cont 100hr Acute renal failure, acute vasomotor nephropathy COPD, nebs weakness, debiltiy tobacco use disorder History of Present Illness History of Present Illness Ms. alfaro, is a 70 year old female with acute hip pain. She has been falling, more freq falls, and had been down for 6 or 8 hours Then could not stand, and could not get upnormally ambulates without assistance. body survey Xrays taken, hip showed acute Dislocation of the right hip arthroplasties Patient is on Coumadin for a DVT diagnosed 1 year ago. Complaining in pain in her right hip and thigh. Admitted with cardiology, orthopedic surgery, and nephrology consults 04/02: Having severe pain in her right leg. Repeat CT showed improved positioning of right hip last night. INR down to 5.9, CR 1.3.. She has no have any overt source of bleeding. Per her own admission she has dementia and would like her son and girlfriend to be notified of any changes. No chest pain or shortness of breath. 04/03: Patient reports improvement in her leg pain. Brace has been provided and place. INR 4.4 today. CK 2331. We will continue IV fluids and monitor renal function, creatinine 1.1. 04/04: Afebrile, breathing on 4 L. Echocardiogram yesterday showed PAP 20-30 mmHg, with EF 65%. Worked with physical therapy today, states progress is going "slow but steady ". PT recommending half-way. INR 1.9, CK 1447, creatinine 1.0. Continue IV fluids until CK <900. Vitals/I&O Vitals/I&O: Vital Signs Date Time Temp Pulse Resp B/P (MAP) Pulse Ox O2 Delivery O2 Flow Rate FiO2 04/04/21 03:00 97.9 86 20 138/75 (96) 90 Nasal Cannula 4.0 97.9 I & O 04/03/21 04/03/21 04/04/21 15:00 23:00 07:00 Intake Total 1000 ml 0 ml Output Total 1000 ml 250 ml 1300 ml Balance -1000 ml 750 ml -1300 ml Physical Exam General: Alert, Oriented X3, Cooperative, No acute distress Heart: Regular rate (SR), Normal S1, Normal S2, No murmurs Lungs: Clear Abdomen: Soft, No tenderness Extremities: No cyanosis, No edema, Other Skin: No breakdown, No significant lesion Assessment and Plan Assessmemt and Plan Problems Medical Problems: (1) AMS (altered mental status) Status: Acute (2) Displacement of internal right hip prosthesis Status: Acute (3) Falls Status: Acute (4) Supratherapeutic international normalized ratio (INR) Status: Acute Comment Review of Relevant I have reviewed the following items nupur (where applicable) has been applied. Medications: Current Medications Medications (Trade) Dose Ordered Sig/Chanel Route PRN Reason Start Time Stop Time Status Last Admin Dose Admin Metoprolol Succinate (Toprol Xl) 25 mg DAILY PO 04/03/21 09:00 04/03/21 09:17 Amlodipine Besylate (Norvasc) 10 mg DAILY PO 04/03/21 09:00 04/03/21 09:17 Potassium Chloride (Klor-Con) 20 meq 1X ONCE PO 04/03/21 13:00 04/03/21 13:01 DC 04/03/21 12:28 Justifications for Admission Other Justification JACK TERRY MD Apr 04, 2021 07:29
[2021-04-04] MEDS: IPRATROPIUM/ALBUTEROL 20/100mcg/INH INHALER. INH SCH ×4 (08:00→20:00)
[2021-04-04 08:07] LABS: BASO # 0.1 x10^3/uL (0.0-0.2); BASO % 1 % (0-3); EOS # 0.2 x10^3/uL (0.0-0.7); EOS % 2 % (0-3); HEMATOCRIT 26.5 % (36.0-47.0); HEMOGLOBIN 8.2 g/dL (12.0-15.5); LYMPH # 1.1 x10^3/uL (1.0-4.8); LYMPH % 11 % (24-48); MEAN CORPUSCULAR HEMOGLOBIN 21 pg (25-35); MEAN CORPUSCULAR HGB CONC 31 g/dL (31-37); MEAN CORPUSCULAR VOLUME 70 fL (79-100); MONO # 0.8 x10^3/uL (0.0-1.1); MONO % 8 % (0-9); NEUT # 7.8 x10^3/uL (1.8-7.7); NEUT % 78 % (31-73); PLATELET COUNT 252 x10^3/uL (140-400); RED BLOOD COUNT 3.81 x10^6/uL (3.50-5.40); RED CELL DISTRIBUTION WIDTH 20.4 % (11.5-14.5); WHITE BLOOD COUNT 10.1 x10^3/uL (4.0-11.0)
[2021-04-04 08:21] LABS: PROTHROMBIN TIME PATIENT 21.8 SEC (11.7-14.0)
[2021-04-04 09:03] LABS: CALCIUM 7.8 mg/dL (8.5-10.1); GFR 54.8; POTASSIUM 4.2 mmol/L (3.5-5.1)
[2021-04-04] MEDS: MULTIVITAMIN with MINERAL TABLET. PO SCH (09:17)
[2021-04-04] MEDS: METOPROLOL SUCC 24HR ER 25 MG TAB.ER.24H. PO SCH (09:17)
[2021-04-04] MEDS: CHOLECALCIFEROL (VITAMIN D3) 1,000 UNIT TABLET PO SCH (09:17)
[2021-04-04] MEDS: CITALOPRAM 20 MG TABLET. PO SCH (09:17)
--- NOTE | 2021-04-04 10:09 | PDOC ---
DATE OF SERVICE DATE: 04/04/21 TIME: 10:08 SUBJECTIVE ROS No complaints, denies SOB, No N/V OBJECTIVE Vital Signs Vital Signs Date Time Temp Pulse Resp B/P (MAP) Pulse Ox O2 Delivery O2 Flow Rate FiO2 04/04/21 09:17 86 104/62 04/04/21 08:30 Nasal Cannula 5.0 04/04/21 07:00 97.7 20 83 97.7 I & 0 Intake and Output 04/04/21 07:00 Intake Total 1000 ml Output Total 2550 ml Balance -1550 ml Intake Oral 0 ml IV Total 1000 ml Output Urine Total 2550 ml PHYSICAL EXAM Physical Exam General : NAD HEEN OM moist Lungs CTA, Non labored Heart: S1S2 Abdomen: soft, bowel sounds present, NT Extremities: No LE edema Neurology: alert, oriented DIAGNOSIS/ASSESSMENT Assessment & Plan VERONICA- No hx of CKD, improving renal function Cr 1.0 <--1.7 . 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 , CK improving Acute fall POA Right Hip Displacement POA COPD COMMENT/RELEVANT DATA Meds Current Medications Medications (Trade) Dose Ordered Sig/Chanel Start Time Stop Time Status Last Admin Dose Admin Acetaminophen/ Hydrocodone Bitart (Lortab 5/325) 1 tab PRN Q4HRS PRN 04/02/21 17:00 04/03/21 11:00 1 TAB Albuterol/ Ipratropium (Combivent Respimat 20-100 Mcg) 1 puff RTQID 04/02/21 08:00 04/03/21 23:04 1 PUFF Albuterol/ Ipratropium (Duoneb) 3 ml [id number] 04/01/21 21:00 Cancel Amlodipine Besylate (Norvasc) 10 mg DAILY 04/03/21 09:00 04/04/21 09:17 10 MG Citalopram Hydrobromide (CeleXA) 20 mg DAILY 04/02/21 09:00 04/04/21 09:17 20 MG Cyclobenzaprine HCl (Flexeril) 10 mg PRN Q6HRS PRN 04/01/21 21:00 Fentanyl Citrate (Fentanyl 2ml Vial) 75 mcg 1X ONCE 04/01/21 20:00 04/01/21 20:07 DC Hydralazine HCl (Apresoline Inj) 10 mg PRN Q4HRS PRN 04/02/21 13:30 Influenza Virus Vaccine Quadrival (Flulaval Quad [id number] Syringe) 0.5 ml ONCE ONCE 04/02/21 14:00 04/02/21 14:03 DC Info (FLU VACCINE SCREEN per RX) 1 each PRN DAILY PRN 04/02/21 06:30 Cancel Losartan Potassium (Cozaar) 100 mg DAILY 04/02/21 09:00 04/02/21 13:55 DC Metoprolol Succinate (Toprol Xl) 25 mg DAILY 04/03/21 09:00 04/04/21 09:17 25 MG Multivitamins (Thera M Plus) 1 tab DAILY 04/02/21 09:00 04/04/21 09:17 1 TAB Potassium Chloride (Klor-Con) 20 meq 1X ONCE 04/03/21 13:00 04/03/21 13:01 DC 04/03/21 12:28 20 MEQ Propofol (Diprivan) 200 mg STK-MED ONCE 04/01/21 21:00 04/02/21 09:00 DC Sodium Chloride 1,000 ml @ 100 mls/hr Q10H 04/02/21 12:00 04/04/21 01:56 100 MLS/HR Succinylcholine Chloride (Anectine) 200 mg STK-MED ONCE 04/01/21 21:00 04/02/21 09:00 DC Trazodone HCl (Desyrel) 100 mg HS 04/01/21 22:00 04/03/21 23:02 100 MG Vitamin D (Vitamin D3) 1,000 unit DAILY 04/02/21 09:00 04/04/21 09:17 1,000 UNIT Lab Laboratory Tests Test 04/04/21 07:30 White Blood Count 10.1 x10^3/uL (4.0-11.0) Red Blood Count 3.81 x10^6/uL (3.50-5.40) Hemoglobin 8.2 g/dL (12.0-15.5) Hematocrit 26.5 % (36.0-47.0) Mean Corpuscular Volume 70 fL (79-100) Mean Corpuscular Hemoglobin 21 pg (25-35) Mean Corpuscular Hemoglobin Concent 31 g/dL (31-37) Red Cell Distribution Width 20.4 % (11.5-14.5) Platelet Count 252 x10^3/uL (140-400) Neutrophils (%) (Auto) 78 % (31-73) Lymphocytes (%) (Auto) 11 % (24-48) Monocytes (%) (Auto) 8 % (0-9) Eosinophils (%) (Auto) 2 % (0-3) Basophils (%) (Auto) 1 % (0-3) Neutrophils # (Auto) 7.8 x10^3/uL (1.8-7.7) Lymphocytes # (Auto) 1.1 x10^3/uL (1.0-4.8) Monocytes # (Auto) 0.8 x10^3/uL (0.0-1.1) Eosinophils # (Auto) 0.2 x10^3/uL (0.0-0.7) Basophils # (Auto) 0.1 x10^3/uL (0.0-0.2) Prothrombin Time 21.8 SEC (11.7-14.0) Prothromb Time International Ratio 1.9 (0.8-1.1) Sodium Level 140 mmol/L (136-145) Potassium Level 4.2 mmol/L (3.5-5.1) Chloride Level 108 mmol/L (98-107) Carbon Dioxide Level 24 mmol/L (21-32) Anion Gap 8 (6-14) Blood Urea Nitrogen 14 mg/dL (7-20) Creatinine 1.0 mg/dL (0.6-1.0) Estimated GFR (Cockcroft-Gault) 54.8 Glucose Level 96 mg/dL (70-99) Calcium Level 7.8 mg/dL (8.5-10.1) Creatine Kinase 1447 U/L (26-192) Results All relevant outside records, renal labs, imaging studies, telemetry/EKG's were reviewed. Justicifation of Admission Dx: Justifications for Admission: Justification of Admission Dx: Yes MERCEDES COOK MD Apr 04, 2021 10:09
[2021-04-04 11:00] VITALS: BP 122/81
--- NOTE | 2021-04-04 11:21 | PDOC ---
CARD[facility] Progress Notes Date and Time Date of Service 04/04/2021 Time of Evaluation 0950 Subjective Subjective: No Chest Pain, No shortness of breath, No Palpitations Vitals Vitals Vital Signs Date Time Temp Pulse Resp B/P (MAP) Pulse Ox O2 Delivery O2 Flow Rate FiO2 04/04/21 09:17 86 104/62 04/04/21 08:30 Nasal Cannula 5.0 04/04/21 07:00 97.7 20 83 97.7 Weight Weight [ ] Input and Output Intake and Output Intake and Output 04/04/21 07:00 Intake Total 1000 ml Output Total 2550 ml Balance -1550 ml Intake Oral 0 ml IV Total 1000 ml Output Urine Total 2550 ml Laboratory Labs Laboratory Tests Test 04/04/21 07:30 White Blood Count 10.1 x10^3/uL (4.0-11.0) Red Blood Count 3.81 x10^6/uL (3.50-5.40) Hemoglobin 8.2 g/dL (12.0-15.5) Hematocrit 26.5 % (36.0-47.0) Mean Corpuscular Volume 70 fL (79-100) Mean Corpuscular Hemoglobin 21 pg (25-35) Mean Corpuscular Hemoglobin Concent 31 g/dL (31-37) Red Cell Distribution Width 20.4 % (11.5-14.5) Platelet Count 252 x10^3/uL (140-400) Neutrophils (%) (Auto) 78 % (31-73) Lymphocytes (%) (Auto) 11 % (24-48) Monocytes (%) (Auto) 8 % (0-9) Eosinophils (%) (Auto) 2 % (0-3) Basophils (%) (Auto) 1 % (0-3) Neutrophils # (Auto) 7.8 x10^3/uL (1.8-7.7) Lymphocytes # (Auto) 1.1 x10^3/uL (1.0-4.8) Monocytes # (Auto) 0.8 x10^3/uL (0.0-1.1) Eosinophils # (Auto) 0.2 x10^3/uL (0.0-0.7) Basophils # (Auto) 0.1 x10^3/uL (0.0-0.2) Prothrombin Time 21.8 SEC (11.7-14.0) Prothromb Time International Ratio 1.9 (0.8-1.1) Sodium Level 140 mmol/L (136-145) Potassium Level 4.2 mmol/L (3.5-5.1) Chloride Level 108 mmol/L (98-107) Carbon Dioxide Level 24 mmol/L (21-32) Anion Gap 8 (6-14) Blood Urea Nitrogen 14 mg/dL (7-20) Creatinine 1.0 mg/dL (0.6-1.0) Estimated GFR (Cockcroft-Gault) 54.8 Glucose Level 96 mg/dL (70-99) Calcium Level 7.8 mg/dL (8.5-10.1) Creatine Kinase 1447 U/L (26-192) Review of Systems Constitutional: yes: weakness, oriented Ears/Nose/Throat: Yes: no symptom reported Eyes: Yes: no symptom reported Pulmonary: Yes no symptom reported Gastrointestional: Yes: constipation Genitourinary: Yes: no symptom reported Musculoskeletal: Yes: joint pain, joint swelling Skin: Yes no symptom reported Psychiatric/Neurological: Yes: no symptom reported Endocrine: Yes: no symptom reported Physical Exam HEENT: Neck Supple W Full Motion Chest: Symmetric LUNGS: Clear to Auscultation Heart: RRR (SR), no gallops, no murmurs, irregularly irregular Abdomen: Soft N/T Extremities: No Calf Tenderness Neurology: alert, oriented, follow commands Assessment Assessment 1. Traumatic mechanical fall: unclear for syncope as she is a poor historian 2. prior RTHA with subluxation due to above, S/P close reduction 3. Right posterior minimally displaced 3rd and 4th rib fractures 4. COPD: compensated 5. HTN: controlled 6. HLP 7. Hx of PE/DVT with coumadin therapy 8. Coagulopathy: INR down to 4.4 no obvious bleed 9. Chronic diastolic CHF: clinically compensated. EF and WM nml per TTE 10. Rhabdomyolysis 11. Mild troponin elevation: doubt ACS. no CP, demand mediated with injuries, fall and VERONICA 12. VERONICA: much improved, nephrology following 13. PSVT: brief episodes 14. Mild valvular insufficiency 15. Microcytic anemia: Hgb at 8.2 per PCP Recommendations 1. Continue IVF 2. Hold statin. Continue low dose toprol and norvasc 3. Coumadin on hold 4. MCOT 5. Follow up in office Justicifation of Admission Dx: Justifications for Admission: Justification of Admission Dx: Yes VIPUL GOLDBERG WAVE SOLDER OFFBEARER Apr 04, 2021 11:21
[2021-04-04] MEDS ORDERED: FLU VACC QUAD 21-22 (6MOS+) PF 0.5 ML SYRINGE. VAX IM ONE (12:00)
[2021-04-04 15:00] VITALS: BP 128/80
--- NOTE | 2021-04-04 15:29 | NUR ---
SS following up with discharge planning. SS reviewed pt chart and discussed with pt RN. Pt is currently requiring oxygen at five liters nasal canula. COVID19 negative. Pt has home oxygen. INR 1.9 today. PO diet. Pt received brace. PT/OT recommended fci unit. SS met with pt and daughter in room to discuss discharge planning and fci unit. Pt and daughter declining fci unit at this time and requesting home with home healthcare with no preference of company. Referral sent to [facility], ; fax [phone]. SS will continue to follow for discharge planning.
[2021-04-04] MEDS ORDERED: WARFARIN 1 MG TABLET. PO ONE (16:00)
[2021-04-04 19:00] VITALS: BP 118/83
[2021-04-04] MEDS: traZODone 100 MG TABLET. PO SCH (21:47)
[2021-04-04] MEDS: CYCLOBENZAPRINE 10 MG TABLET. PO PRN (21:48)
[2021-04-04] MEDS: HYDROcodone/APAP 5/325MG 1 TAB TABLET PO PRN (21:52)
[2021-04-04 23:00] VITALS: BP 114/66
[2021-04-05 03:00] VITALS: BP 125/73
[2021-04-05 07:00] VITALS: BP 148/86
[2021-04-05 08:15] LABS: PROTHROMBIN TIME PATIENT 18.6 SEC (11.7-14.0)
[2021-04-05] MEDS: IPRATROPIUM/ALBUTEROL 20/100mcg/INH INHALER. INH SCH ×3 (08:24→17:21)
[2021-04-05] MEDS: IV NORMAL SALINE 1000ML BAG 1,000 ML IV SCH ×2 (08:25→18:29)
[2021-04-05] MEDS: METOPROLOL SUCC 24HR ER 25 MG TAB.ER.24H. PO SCH (08:25)
[2021-04-05] MEDS: MULTIVITAMIN with MINERAL TABLET. PO SCH (08:26)
[2021-04-05] MEDS: CHOLECALCIFEROL (VITAMIN D3) 1,000 UNIT TABLET PO SCH (08:26)
[2021-04-05] MEDS: CITALOPRAM 20 MG TABLET. PO SCH (08:26)
[2021-04-05 08:31] LABS: CALCIUM 7.8 mg/dL (8.5-10.1); CREATININE 0.9 mg/dL (0.6-1.0); GFR 61.9; POTASSIUM 4.2 mmol/L (3.5-5.1)
--- NOTE | 2021-04-05 10:57 | PDOC ---
Renal-Progress Notes Subjective Notes Notes NO NEW COMPLAINTS History of Present Illness Hx of present illness STABLE Vitals Vitals Vital Signs Date Time Temp Pulse Resp B/P (MAP) Pulse Ox O2 Delivery O2 Flow Rate FiO2 04/05/21 08:26 71 125/73 04/05/21 07:00 98.1 18 99 NonRebreather Mask 8.0 98.1 Weight Weight [ ] I.O. Intake and Output Intake and Output 04/05/21 07:00 Intake Total 2196 ml Output Total 300 ml Balance 1896 ml Intake Oral 240 ml IV Total 1956 ml Output Urine Total 300 ml Labs Labs Laboratory Tests Test 04/05/21 07:30 Prothrombin Time 18.6 SEC (11.7-14.0) Prothromb Time International Ratio 1.6 (0.8-1.1) Sodium Level 142 mmol/L (136-145) Potassium Level 4.2 mmol/L (3.5-5.1) Chloride Level 108 mmol/L (98-107) Carbon Dioxide Level 26 mmol/L (21-32) Anion Gap 8 (6-14) Blood Urea Nitrogen 12 mg/dL (7-20) Creatinine 0.9 mg/dL (0.6-1.0) Estimated GFR (Cockcroft-Gault) 61.9 Glucose Level 98 mg/dL (70-99) Calcium Level 7.8 mg/dL (8.5-10.1) Creatine Kinase 1313 U/L (26-192) Review of Systems Constitutional: yes: weakness, oriented Ears/Nose/Throat: Yes: no symptom reported Eyes: Yes: no symptom reported Pulmonary: Yes no symptom reported Gastrointestional: Yes: constipation Genitourinary: Yes: no symptom reported Musculoskeletal: Yes: joint pain, joint swelling Skin: Yes no symptom reported Psychiatric/Neurological: Yes: no symptom reported Endocrine: Yes: no symptom reported Physical Exam General Appearance: no apparent distress Skin: warm Respiratory: bilateral CTA Heart: S1S2 Abdomen: soft, bowel sounds present Genitourinary: bladder flat Extremities: pulses present Neurology: alert, oriented, follow commands Musculoskeletal: Osteoarthritis, Stiffness Assessment Assessment IMP VERONICA-RESOLVED RHABDOMYOLYSIS-DECREASING CK LEVELS ACUTE FALL RIGHT HIP DISPLACEMENT COPD PLAN WILL SIGN OFF PLEASE CALL IF ANY QUESTIONS SERGEY SÁNCHEZ MD Apr 05, 2021 10:57
[2021-04-05 11:00] VITALS: BP 119/80
--- NOTE | 2021-04-05 11:54 | NUR ---
SW following. Discussed with RN, pt from home with spouse, 8LNRB (uses 2L at home), GI soft, COVID-19 negative. Pt declining SNF, wants [facility]. SW awaiting confirmation of when pt will be ready for discharge. SW will continue to follow.
--- NOTE | 2021-04-05 14:13 | NUR ---
Pharmacy Warfarin Dosing Note S:Pharmacy consulted to assist with anticoagulation therapy started with target INR: 2 -3 O:LEYDA SETH is a 70 year old F with DVT/PE LABS: Last INR: 1.6 Last HGB: 8.2 Last HCT: 26.5 Last PLT: 252 Last dose of 1 mg given on 04/04/21 at 1540 Previous Regimen: 3MG DAILY Vitamin K given: Drug Interaction Changes: Ongoing Drug Interactions: A:INR of 1.6 is below desired range. Target range for this patient is: 2 -3 P: Warfarin dose: 2 mg Today at 1600 Bridge Therapy: Next INR due IN AM Pharmacy anticoagulation service will continue to follow. YURI ABDALLA [facility] [place], 04/05/21 7121
[2021-04-05 15:00] VITALS: BP 121/83
--- NOTE | 2021-04-05 15:08 | PDOC ---
[employer] PROGRESS NOTE Date of Service DOS: DATE: 04/05/21 TIME: 15:06 Chief Complaint Chief Complaint A/P: fall acute right hip pain -will need PT and OT tofollow displacement of prior hip replacement, subluxed, attempted to be reduced with anethesia in the ER, ortho to be consulted Elevated troponin - likely demand ischemia vs rhabdo related supratherapeutic INR, recheck in AM, rhabdomyolysis, 1 liter NS bolus given, cont 100hr Acute renal failure, acute vasomotor nephropathy COPD, nebs weakness, debiltiy tobacco use disorder History of Present Illness History of Present Illness Ms. alfaro, is a 70 year old female with acute hip pain. She has been falling, more freq falls, and had been down for 6 or 8 hours Then could not stand, and could not get upnormally ambulates without assistance. body survey Xrays taken, hip showed acute Dislocation of the right hip arthroplasties Patient is on Coumadin for a DVT diagnosed 1 year ago. Complaining in pain in her right hip and thigh. Admitted with cardiology, orthopedic surgery, and nephrology consults 04/02: Having severe pain in her right leg. Repeat CT showed improved positioning of right hip last night. INR down to 5.9, CR 1.3.. She has no have any overt source of bleeding. Per her own admission she has dementia and would like her son and girlfriend to be notified of any changes. No chest pain or shortness of breath. 04/03: Patient reports improvement in her leg pain. Brace has been provided and place. INR 4.4 today. CK 2331. We will continue IV fluids and monitor renal function, creatinine 1.1. 04/04: Afebrile, breathing on 4 L. Echocardiogram yesterday showed PAP 20-30 mmHg, with EF 65%. Worked with physical therapy today, states progress is going "slow but steady ". PT recommending residential. INR 1.9, CK 1447, creatinine 1.0. Continue IV fluids until CK <900. 04/04: Patient seen resting comfortably in bed, with family member at bedside. CK 1313 today, INR 1.6. Continue IV fluids until CK <900. Has not worked with PT today, but family is open to discharge home with home health when stable. Vitals/I&O Vitals/I&O: Vital Signs Date Time Temp Pulse Resp B/P (MAP) Pulse Ox O2 Delivery O2 Flow Rate FiO2 04/05/21 11:00 98.2 76 19 119/80 (93) 98 NonRebreather Mask 8.0 98.2 I & O 04/04/21 04/04/21 04/05/21 15:00 23:00 07:00 Intake Total 1000 ml 1196 ml 0 ml Output Total 300 ml Balance 700 ml 1196 ml 0 ml Physical Exam General: Alert, Oriented X3, Cooperative, No acute distress Heart: Regular rate (SR), Normal S1, Normal S2, No murmurs Lungs: Clear Abdomen: Soft, No tenderness Extremities: No cyanosis, No edema, Other Skin: No breakdown, No significant lesion Labs Labs: Laboratory Tests Test 04/05/21 07:30 Prothrombin Time 18.6 SEC (11.7-14.0) Prothromb Time International Ratio 1.6 (0.8-1.1) Sodium Level 142 mmol/L (136-145) Potassium Level 4.2 mmol/L (3.5-5.1) Chloride Level 108 mmol/L (98-107) Carbon Dioxide Level 26 mmol/L (21-32) Anion Gap 8 (6-14) Blood Urea Nitrogen 12 mg/dL (7-20) Creatinine 0.9 mg/dL (0.6-1.0) Estimated GFR (Cockcroft-Gault) 61.9 Glucose Level 98 mg/dL (70-99) Calcium Level 7.8 mg/dL (8.5-10.1) Creatine Kinase 1313 U/L (26-192) Assessment and Plan Assessmemt and Plan Problems Medical Problems: (1) AMS (altered mental status) Status: Acute (2) Displacement of internal right hip prosthesis Status: Acute (3) Falls Status: Acute (4) Supratherapeutic international normalized ratio (INR) Status: Acute Comment Review of Relevant I have reviewed the following items nupur (where applicable) has been applied. Medications: Current Medications Medications (Trade) Dose Ordered Sig/Chanel Route PRN Reason Start Time Stop Time Status Last Admin Dose Admin Warfarin Sodium (Coumadin) 1 mg 1X WARF ONCE PO 04/04/21 16:00 04/04/21 16:01 DC 04/04/21 15:40 Justifications for Admission Other Justification JACK TERRY MD Apr 05, 2021 15:08
[2021-04-05] MEDS ORDERED: WARFARIN 2 MG TABLET. PO ONE (16:00)
[2021-04-05 19:00] VITALS: BP 106/58
[2021-04-05] MEDS: CYCLOBENZAPRINE 10 MG TABLET. PO PRN (19:42)
[2021-04-05] MEDS: HYDROcodone/APAP 5/325MG 1 TAB TABLET PO PRN (19:43)
[2021-04-05] MEDS: traZODone 100 MG TABLET. PO SCH (19:43)
[2021-04-05 23:00] VITALS: BP 118/72
[2021-04-06 03:00] VITALS: BP 128/72
[2021-04-06] MEDS: CYCLOBENZAPRINE 10 MG TABLET. PO PRN (03:17)
[2021-04-06] MEDS: HYDROcodone/APAP 5/325MG 1 TAB TABLET PO PRN (03:17)
[2021-04-06] MEDS: IPRATROPIUM/ALBUTEROL 20/100mcg/INH INHALER. INH SCH (03:20)
[2021-04-06 07:00] VITALS: BP 130/74
[2021-04-06 07:48] LABS: PROTHROMBIN TIME PATIENT 17.7 SEC (11.7-14.0)
[2021-04-06] MEDS: CITALOPRAM 20 MG TABLET. PO SCH (11:04)
[2021-04-06] MEDS: MULTIVITAMIN with MINERAL TABLET. PO SCH (11:04)
[2021-04-06] MEDS: METOPROLOL SUCC 24HR ER 25 MG TAB.ER.24H. PO SCH (11:06)
[2021-04-06] MEDS: CHOLECALCIFEROL (VITAMIN D3) 1,000 UNIT TABLET PO SCH (11:06)
--- NOTE | 2021-04-06 11:10 | PDOC ---
[employer] PROGRESS NOTE Date of Service DOS: DATE: 04/06/21 TIME: 11:00 Chief Complaint Chief Complaint A/P: fall acute right hip pain -will need PT and OT tofollow displacement of prior hip replacement, subluxed, attempted to be reduced with anethesia in the ER, ortho to be consulted Elevated troponin - likely demand ischemia vs rhabdo related supratherapeutic INR, recheck in AM, rhabdomyolysis, 1 liter NS bolus given, cont 100hr Acute renal failure, acute vasomotor nephropathy COPD, nebs weakness, debiltiy tobacco use disorder History of Present Illness History of Present Illness Ms. alfaro, is a 70 year old female with acute hip pain. She has been falling, more freq falls, and had been down for 6 or 8 hours Then could not stand, and could not get upnormally ambulates without assistance. body survey Xrays taken, hip showed acute Dislocation of the right hip arthroplasties Patient is on Coumadin for a DVT diagnosed 1 year ago. Complaining in pain in her right hip and thigh. Admitted with cardiology, orthopedic surgery, and nephrology consults 04/02: Having severe pain in her right leg. Repeat CT showed improved positioning of right hip last night. INR down to 5.9, CR 1.3.. She has no have any overt source of bleeding. Per her own admission she has dementia and would like her son and girlfriend to be notified of any changes. No chest pain or shortness of breath. 04/03: Patient reports improvement in her leg pain. Brace has been provided and place. INR 4.4 today. CK 2331. We will continue IV fluids and monitor renal function, creatinine 1.1. 04/04: Afebrile, breathing on 4 L. Echocardiogram yesterday showed PAP 20-30 mmHg, with EF 65%. Worked with physical therapy today, states progress is going "slow but steady ". PT recommending alf. INR 1.9, CK 1447, creatinine 1.0. Continue IV fluids until CK <900. 04/05: Patient seen resting comfortably in bed, with family member at bedside. CK 1313 today, INR 1.6. Continue IV fluids until CK <900. Has not worked with PT today, but family is open to discharge home with home health when stable. 04/06 patient seen resting currently in bed. CK 716. Kidney function has improved to normal baseline. PT/OT recommending SNU. I discussion with patient and [id number] yesterday that they would prefer to take care of her there at home with their children to help as well. I am comfortable with this dis charge plan and discussed with pharmacy about providing additional dose of Coumadin prior to discharge. Recommend patient have her INR checked within 1 week due to history of DVT. Greater than 30 minutes spent managing discharge this patient. Vitals/I&O Vitals/I&O: Vital Signs Date Time Temp Pulse Resp B/P (MAP) Pulse Ox O2 Delivery O2 Flow Rate FiO2 04/06/21 07:00 98.5 75 20 130/74 (92) 93 Nasal Cannula 5.0 98.5 I & O 04/05/21 04/05/21 04/06/21 15:00 23:00 07:00 Intake Total 100 ml 200 ml 300 ml Output Total 600 ml 600 ml Balance 100 ml -400 ml -300 ml Physical Exam General: Alert, Oriented X3, Cooperative, No acute distress Heart: Regular rate (SR), Normal S1, Normal S2, No murmurs Lungs: Clear Abdomen: Soft, No tenderness Extremities: No cyanosis, No edema, Other Skin: No breakdown, No significant lesion Labs Labs: Laboratory Tests Test 04/06/21 06:35 04/06/21 07:00 Prothrombin Time 17.7 SEC (11.7-14.0) Prothromb Time International Ratio 1.5 (0.8-1.1) Creatine Kinase 716 U/L (26-192) Assessment and Plan Assessmemt and Plan Problems Medical Problems: (1) AMS (altered mental status) Status: Acute (2) Displacement of internal right hip prosthesis Status: Acute (3) Falls Status: Acute (4) Supratherapeutic international normalized ratio (INR) Status: Acute Comment Review of Relevant I have reviewed the following items nupur (where applicable) has been applied. Medications: Current Medications Medications (Trade) Dose Ordered Sig/Chanel Route PRN Reason Start Time Stop Time Status Last Admin Dose Admin Warfarin Sodium (Coumadin) 2 mg 1X WARF ONCE PO 04/05/21 16:00 04/05/21 16:01 DC 04/05/21 17:21 Justifications for Admission Other Justification JACK TERRY MD Apr 06, 2021 11:10
--- NOTE | 2021-04-06 11:12 | PDOC3 ---
Discharge Summary Visit Information Date of Admission: Apr 01, 2021 Date of Discharge: Apr 06, 2021 Final Diagnosis Problems Medical Problems: (1) AMS (altered mental status) Status: Acute (2) Displacement of internal right hip prosthesis Status: Acute (3) Falls Status: Acute (4) Supratherapeutic international normalized ratio (INR) Status: Acute Brief Hospital Course Allergies Allergies Coded Allergies Type Severity Reaction Last Updated Verified No Known Drug Allergies 03/14/19 No Vital Signs Vital Signs Date Time Temp Pulse Resp B/P (MAP) Pulse Ox O2 Delivery O2 Flow Rate FiO2 04/06/21 07:00 98.5 75 20 130/74 (92) 93 Nasal Cannula 5.0 98.5 Lab Results Laboratory Tests Test 04/05/21 07:30 04/06/21 06:35 04/06/21 07:00 Prothrombin Time 18.6 SEC (11.7-14.0) 17.7 SEC (11.7-14.0) Prothromb Time International Ratio 1.6 (0.8-1.1) 1.5 (0.8-1.1) Sodium Level 142 mmol/L (136-145) Potassium Level 4.2 mmol/L (3.5-5.1) Chloride Level 108 mmol/L (98-107) Carbon Dioxide Level 26 mmol/L (21-32) Anion Gap 8 (6-14) Blood Urea Nitrogen 12 mg/dL (7-20) Creatinine 0.9 mg/dL (0.6-1.0) Estimated GFR (Cockcroft-Gault) 61.9 Glucose Level 98 mg/dL (70-99) Calcium Level 7.8 mg/dL (8.5-10.1) Creatine Kinase 1313 U/L (26-192) 716 U/L (26-192) Laboratory Tests Test 04/06/21 06:35 04/06/21 07:00 Prothrombin Time 17.7 SEC (11.7-14.0) Prothromb Time International Ratio 1.5 (0.8-1.1) Creatine Kinase 716 U/L (26-192) Brief Hospital Course Ms. Alfaro is a 70 old female who presented with right hip dislocation, suprapubic INR. Ms. alfaro, is a 70 year old female with acute hip pain. She has been f alling, more freq falls, and had been down for 6 or 8 hours Then could not stand, and could not get upnormally ambulates without assistance. body survey Xrays taken, hip showed acute Dislocation of the right hip arthroplasties Patient is on Coumadin for a DVT diagnosed 1 year ago. Complaining in pain in her right hip and thigh. Admitted with cardiology, orthopedic surgery, and nephrology consults 04/02: Having severe pain in her right leg. Repeat CT showed improved positioning of right hip last night. INR down to 5.9, CR 1.3.. She has no have any overt source of bleeding. Per her own admission she has dementia and would like her son and girlfriend to be notified of any changes. No chest pain or shortness of breath. 04/03: Patient reports improvement in her leg pain. Brace has been provided and place. INR 4.4 today. CK 2331. We will continue IV fluids and monitor renal function, creatinine 1.1. 04/04: Afebrile, breathing on 4 L. Echocardiogram yesterday showed PAP 20-30 mmHg, with EF 65%. Worked with physical therapy today, states progress is going "slow but steady ". PT recommending retirement. INR 1.9, CK 1447, creatinine 1.0. Continue IV fluids until CK <900. 04/05: Patient seen resting comfortably in bed, with family member at bedside. CK 1313 today, INR 1.6. Continue IV fluids until CK <900. Has not worked with PT today, but family is open to discharge home with home health when stable. 04/06 patient seen resting currently in bed. CK 716. Kidney function has improved to normal baseline. PT/OT recommending SNU. I discussion with patient and [id number] yesterday that they would prefer to take care of her there at home with their adult children to help as well. I am comfortable with this discharge plan and discussed with pharmacy about providing additional dose of Coumadin prior to discharge. Recommend patient have her INR checked within 1 week due to history of DVT. Discharge Information Condition at Discharge: Stable Disposition/Orders: D/C to Home Scheduled Alprazolam (Alprazolam) 1 Mg Tablet, 1 MG PO BID for anxiety, (Reported) Entered as Reported by: CHARIS RUIZ on 04/02/21 0500 Last Action: New Order on 04/02/21499 by CHARIS RUIZ Bupropion Hcl (Wellbutrin Xl) 300 Mg Tab.er.24h, 1 TAB PO DAILY for dep/anx, #90 Ref 3 (Reported) Entered as Reported by: IRVIN SALEH RN on 09/02/19 1230 Last Action: Reviewed on 04/02/21499 by CHARIS RUIZ Cholecalciferol (Vitamin D3) (Vitamin D3) 1,000 Unit Tablet, 1 TAB PO DAILY for supplement, #30 Ref 5 (Reported) Entered as Reported by: TRACI HOLDER on 03/11/191099 Last Action: Continued on 04/01/212046 by SULLY KILGORE Escitalopram Oxalate (Escitalopram Oxalate) 10 Mg Tablet, 10 MG PO DAILY for depression, (Reported) Entered as Reported by: TRACI HOLDER on 03/11/191099 Last Action: Reviewed on 04/02/21499 by CHARIS RUIZ Multivitamin (Multivitamins) 1 Each Tablet, 1 TAB PO DAILY for supplement, #90 Ref 3 (Reported) Entered as Reported by: TRACI HOLDER on 03/11/191099 Last Action: Converted on 04/01/212046 by SULLY KILGORE Olmesartan Medoxomil (Olmesartan Medoxomil) 20 Mg Tablet, 20 MG PO DAILY for HTN, (Reported) Entered as Reported by: TRACI HOLDER on 03/11/191099 Last Action: Converted on 04/01/212046 by SULLY KILGORE Rosuvastatin Calcium (Rosuvastatin Calcium) 20 Mg Tablet, 20 MG PO HS for hyperlipidemia, (Reported) Entered as Reported by: TRACI HOLDER on 03/11/191099 Last Action: Reviewed on 04/02/21499 by CHARIS RUIZ Trazodone Hcl (Trazodone Hcl) 100 Mg Tablet, 100 MG PO HS for insomnia, (Reported) Entered as Reported by: TRACI HOLDER on 03/11/191099 Last Action: Reviewed on 04/02/21499 by CHARIS RUIZ Warfarin Sodium (Warfarin Sodium) 3 Mg Tablet, 3 MG PO DAILY for hx pe, (Reported) Entered as Reported by: CHARIS RUIZ on 04/02/21499 Last Action: New Order on 04/02/21499 by CHARIS RUIZ Scheduled PRN Albuterol Sulfate (Proair Hfa Inhaler) 8.5 Gm Hfa.aer.ad, 2 PUFF IH PRN Q4-6HRS PRN for wheezing for 21 Days, #1 Ref 0 (Reported) Entered as Reported by: CHARIS RUIZ on 04/02/21499 Last Action: New Order on 04/02/21499 by CHARIS RUIZ Cyclobenzaprine HCl (Cyclobenzaprine HCl ER) 15 Mg Cap.er.24h, 10 MG PO PRN Q6HRS PRN for MUSCLE SPASMS, (Reported) Entered as Reported by: IRVIN SALEH RN on 09/02/19 1230 Last Action: Converted on 04/01/212046 by SULLY KILGORE Justicifation of Admission Dx: Justifications for Admission: Justification of Admission Dx: Yes JACK TERRY MD Apr 06, 2021 11:12
[2021-04-06] MEDS ORDERED: HYDR-2761 PO (11:15)
[2021-04-06 11:17] VITALS: BP 134/91
--- NOTE | 2021-04-06 11:20 | NUR ---
Pharmacy Warfarin Dosing Note S:Pharmacy consulted to assist with anticoagulation therapy started with target INR: 2 -3 O:LEYDA SETH is a 70 year old F with DVT/PE LABS: Last INR: 1.5 Last HGB: 8.2 Last HCT: 26.5 Last PLT: 252 Last dose of 2 mg given on 04/05/21 at 1721 Previous Regimen: 3MG DAILY Vitamin K given: Drug Interaction Changes: Ongoing Drug Interactions: A:INR of 1.5 is below desired range. Target range for this patient is: 2 -3 P: Warfarin dose: 3 mg Today at 1300. Bridge Therapy: None Next INR due as ordered by physician. Pharmacy anticoagulation service will continue to follow. Chandler Torrez [facility] [place], 04/06/21 2975
[2021-04-06] MEDS ORDERED: WARFARIN 3 MG TABLET. PO ONE (13:00)
--- NOTE | 2021-04-06 14:04 | PDOC ---
CARDIOLOGY PROGRESS NOTE SUBJECTIVE: No new events overnight. No chest pain. No dyspnea. She still has hip pain. Eating well. looking forward to going home. OBJECTIVE: Vital Signs/I&O: Vital Signs Date Time Temp Pulse Resp B/P (MAP) Pulse Ox O2 Delivery O2 Flow Rate FiO2 04/06/21 11:17 98.6 87 20 134/91 (105) 90 Nasal Cannula 5.0 98.6 I & O 04/05/21 04/05/21 04/06/21 15:00 23:00 07:00 Intake Total 100 ml 200 ml 300 ml Output Total 600 ml 600 ml Balance 100 ml -400 ml -300 ml Objective: GEN.: No apparent distress. Alert and oriented. HEENT: Head is normocephalic, atraumatic NECK: Supple. LUNGS: Clear to auscultation. HEART: RRR, S1, S2 present. Peripheral pulses intact ABDOMEN: Soft, nontender. Positive bowel sounds. EXTREMITIES: Without any cyanosis. She has right greater than left 1+ edema. NEUROLOGIC: Normal speech, normal tone PSYCHIATRIC: Normal affect, normal mood. SKIN: No ulcerations CURRENT MEDICATIONS: Warfarin, Metoprolol and Amlodipine DIAGNOSTIC TESTING: Labs reviewed. hgb down trending. Labs: Laboratory Tests Test 04/06/21 06:35 04/06/21 07:00 Prothrombin Time 17.7 SEC (11.7-14.0) H Prothromb Time International Ratio 1.5 (0.8-1.1) H Creatine Kinase 716 U/L (26-192) H ASSESSMENT: 1. Traumatic mechanical fall: unclear for syncope as she is a poor historian 2. prior RTHA with subluxation due to above, S/P close reduction 3. Right posterior minimally displaced 3rd and 4th rib fractures 4. COPD: compensated 5. HTN: controlled 6. HLP 7. Hx of PE/DVT with coumadin therapy 8. Coagulopathy: Improved 9. Chronic diastolic CHF: clinically compensated. EF and WM nml per TTE 10. Rhabdomyolysis 11. Mild troponin elevation: Type 2 NSTEMI 12. VERONICA: much improved, nephrology following 13. PSVT: brief episodes 14. Mild valvular insufficiency 15. Microcytic anemia: Hgb at 8.2 per PCP PLAN: 1. Continue metoprolol and warfarin restarted per primary service. 2. Would recommend rechecking cbc prior to dc given down trending Hgb. Supportive care. Justicifation of Admission Dx: Justifications for Admission: Justification of Admission Dx: Yes CELSA ASHTON MD Apr 06, 2021 14:04
[2021-04-06 14:25] LABS: BASO # 0.1 x10^3/uL (0.0-0.2); BASO % 0 % (0-3); EOS # 0.2 x10^3/uL (0.0-0.7); EOS % 2 % (0-3); HEMATOCRIT 27.9 % (36.0-47.0); HEMOGLOBIN 8.3 g/dL (12.0-15.5); LYMPH # 1.4 x10^3/uL (1.0-4.8); LYMPH % 12 % (24-48); MEAN CORPUSCULAR HEMOGLOBIN 21 pg (25-35); MEAN CORPUSCULAR HGB CONC 30 g/dL (31-37); MEAN CORPUSCULAR VOLUME 70 fL (79-100); MONO # 1.1 x10^3/uL (0.0-1.1); MONO % 9 % (0-9); NEUT % 77 % (31-73); PLATELET COUNT 316 x10^3/uL (140-400); RED BLOOD COUNT 3.97 x10^6/uL (3.50-5.40); RED CELL DISTRIBUTION WIDTH 21.1 % (11.5-14.5); WHITE BLOOD COUNT 11.7 x10^3/uL (4.0-11.0)
--- NOTE | 2021-04-06 16:10 | NUR ---
patient discharged home with daughter in law and son. Meds and follow up with cardiology reviewed. IV removed intact. Fitzpatrick removed. patient stable upon dc.
--- NOTE | 2021-04-06 18:36 | PN ---
DATE: 04/05/2021 She is seen for evaluation today after the hip dislocation. She remains in place at this point as far as the hip prosthesis is concerned. The abductor brace has been fitted and is in place and she states that it is very comfortable at this point. She is weightbearing as tolerated in the brace. She understands that we have discussed again today that we will follow up with her in 4-6 weeks in the office. At this point, the other possibility is for an evaluation outside our facility with the possibility of revision of this hip dislocation. She understands that I do not do that in my practice, but I will certainly get her set up if she wishes. At this point, she wishes to continue with conservative management and use of the brace, which she understands needs to be on real time analyst. ABBIE/JESICA DR: Naman TID: [id number]
== END 2021-04-06 15:30 | disposition home or self-care (01) | DRG 559 ==
LOC: ER 17:48 → 5 SOUTH 18:50
PROVIDERS: ADMIT Internal Medicine; ATTEND Internal Medicine
PROC: 0SW9XJZ Revision of Synthetic Substitute in Right Hip Joint, External Approach (ICD-10-PCS; principal; 2021-04-01)
DX: T84.020A Dislocation of internal right hip prosthesis, initial encounter (principal); N17.0 Acute kidney failure with tubular necrosis; I21.A1 Myocardial infarction type 2; M62.82 Rhabdomyolysis; S22.49XA Multiple fractures of ribs, unspecified side, initial encounter for closed fracture; D68.9 Coagulation defect, unspecified; I50.32 Chronic diastolic (congestive) heart failure; I47.1 Supraventricular tachycardia; D50.9 Iron deficiency anemia, unspecified; E78.5 Hyperlipidemia, unspecified; F03.90 Unspecified dementia, unspecified severity, without behavioral disturbance, psychotic disturbance, mood disturbance, and anxiety; F17.210 Nicotine dependence, cigarettes, uncomplicated; F32.A Depression, unspecified; F41.9 Anxiety disorder, unspecified; G47.00 Insomnia, unspecified; I11.0 Hypertensive heart disease with heart failure; J44.9 Chronic obstructive pulmonary disease, unspecified; R29.6 Repeated falls; W18.30XA Fall on same level, unspecified, initial encounter; Y79.2 Prosthetic and other implants, materials and accessory orthopedic devices associated with adverse incidents; Z80.7 Family history of other malignant neoplasms of lymphoid, hematopoietic and related tissues; Z82.49 Family history of ischemic heart disease and other diseases of the circulatory system; Z86.711 Personal history of pulmonary embolism; Z86.718 Personal history of other venous thrombosis and embolism; Z90.710 Acquired absence of both cervix and uterus; M19.90 Unspecified osteoarthritis, unspecified site; Z79.01 Long term (current) use of anticoagulants
CPT/HCPCS: 27250; 36415; 70450; 71045; 71250; 72125; 73120; 73501; 73502; 73552; 73620; 73700; 80048; 80053; 81001; 82550; 83605; 83735; 83874; 83880; 84100; 84484; 85025; 85610; 87426; 93005; 93306; 96361; 96374; J0330; J2704; J3010; J7030; J7040; U0003; U0005; 92610-GN; 97116-GP; 97530-GP; 99285-25; G0378